=== PATIENT | female | born 1955 | race Native Hawaiian/Other Pacific Islander ===

== ENCOUNTER 2017-06-19 20:52 | Emergency (ER) | payer SELFPAY ==
[2017-06-19 21:43] VITALS: RESP 18
--- NOTE | 2017-06-19 21:50 | ED ---
General Adult HPI - General Chief complaint: Syncope Stated complaint: Syncope Time Seen by Provider: 06/19/17 21:15 Source: patient, family, RN notes reviewed Mode of arrival: ambulatory Limitations: no limitations - History of Present Illness Initial comments: Patient is a pleasant 61-year-old female presenting to the emergency department after reported syncopal episode. Patient states she was in the hospital with her daughter who is sick. Patient was very worried and passed out. Patient states this has happened to her previously. Patient is currently symptom-free. Patient denies any injury. No chest pain or dyspnea. No abdominal or back pain. No weakness or confusion. - Related Data Home Medications Medication Instructions Recorded Confirmed Levothyroxine Sodium [Synthroid] 75 mcg PO DAILY 06/19/17 06/19/17 Multivitamin/Iron/Folic Acid 1 tab PO DAILY 06/19/17 06/19/17 [Centrum Complete Multivit Tab] traMADol HCL [Ultram] 50 mg PO TID PRN 06/19/17 06/19/17 Allergies Allergy/AdvReac Type Severity Reaction Status Date / Time No Known Allergies Allergy Verified 06/19/17 21:42 Review of Systems ROS Statement: Those systems with pertinent positive or pertinent negative responses have been documented in the HPI. ROS Other: All systems not noted in ROS Statement are negative. Constitutional: Denies: fever Eyes: Denies: eye pain ENT: Denies: ear pain Respiratory: Denies: cough Cardiovascular: Denies: chest pain Endocrine: Denies: fatigue Gastrointestinal: Denies: abdominal pain Genitourinary: Denies: dysuria Musculoskeletal: Denies: back pain Skin: Denies: rash Neurological: Denies: weakness Past Medical History Past Medical History: Rheumatoid Arthritis (RA), Thyroid Disorder History of Any Multi-Drug Resistant Organisms: None Reported Past Surgical History: No Surgical Hx Reported Past Psychological History: No Psychological Hx Reported Smoking Status: Never smoker Past Alcohol Use History: None Reported Past Drug Use History: None Reported General Exam Limitations: no limitations General appearance: alert, in no apparent distress Head exam: Present: atraumatic, normocephalic Eye exam: Present: normal appearance, PERRL, EOMI. Absent: nystagmus ENT exam: Present: normal oropharynx Neck exam: Present: normal inspection. Absent: tenderness Respiratory exam: Present: normal lung sounds bilaterally Cardiovascular Exam: Present: regular rate, normal rhythm Expanded Peripheral pulses: 2+: Radial (R), Radial (L), Posterior Tibialis (R), Posterior Tibialis (L) GI/Abdominal exam: Present: soft. Absent: tenderness Extremities exam: Present: normal inspection Neurological exam: Present: alert, oriented X3, CN II-XII intact. Absent: motor sensory deficit Expanded Patient oriented to: Present: person, place, time Speech: Present: fluid speech Cranial nerves: EOM's Intact: Normal, Facial Sensation: Normal Sensory exam: Upper Extremity Light Touch: Normal, Lower Extremity Light Touch: Normal Motor strength exam: RUE: 5, LUE: 5, RLE: 5, LLE: 5 Eye Response: (4) open spontaneously Motor Response: (6) obeys commands Verbal Response: (5) oriented Psychiatric exam: Present: normal affect, normal mood Skin exam: Present: normal color Course Vital Signs 06/19/17 21:00 Temperature 97.0 F L Pulse Rate 66 Respiratory 18 Rate Blood Pressure 121/68 O2 Sat by Pulse 97 Oximetry EKG Findings - EKG Comments: EKG Findings:: Normal sinus rhythm 68. NE 156. QRS 100. QT 408. QTC 433. Normal axis. Normal QRS. No acute ST change. Medical Decision Making - Medical Decision Making Patient presents with vasovagal episode. Patient is symptom-free and does not want any further workup. Disposition Clinical Impression: Vasovagal syncope Disposition: HOME SELF-CARE Condition: Stable Instructions: Syncope (ED) Additional Instructions: Please follow-up with primary care physician in the next day or 2 for recheck. Return for passing out, confusion or headache, chest pain or difficulty breathing or weakness or other concerns. Referrals: Lamin Mcdonough DO [Primary Care Provider] - 1-2 days Time of Disposition: 22:02
[2017-06-19 22:47] VITALS: BP 127/71; PULSE 69; TEMP 98.2
== END 2017-06-19 22:15 | disposition home or self-care (01) ==
LOC: EC 20:52
DX: R55 Syncope and collapse (principal); E07.9 Disorder of thyroid, unspecified; Z79.899 Other long term (current) drug therapy
CPT/HCPCS: 93005; 99284

== ENCOUNTER 2020-07-28 03:16 | Inpatient (IN) | payer MEDICARE ==
[2020-07-28] MEDS ORDERED: SODIUM CHLORIDE 0.9% 1,000 ML IV STA (03:22)
[2020-07-28] MEDS ORDERED: IPRATROPIUM 0.5 MG/2.5 ML NEBU INHALATION STA (03:22)
[2020-07-28] MEDS ORDERED: ALBUTEROL NEBULIZED 2.5 MG/3 ML INHALATION STA (03:22)
--- NOTE | 2020-07-28 03:23 | ED ---
SOB HPI - General Stated Complaint: TARAH Time Seen by Provider: 07/28/20 03:19 Source: RN notes reviewed, old records reviewed Mode of arrival: EMS Limitations: language barrier - History of Present Illness Initial Comments: This is a 64-year-old female DF for evaluation of shortness of breath patient has had bodyaches chills with multiple family members as well as well-being si ck. Patient has been tested for coronavirus was negative is significantly short of breath EMS states patient was oxygen or with oxygen in the low 80s. Patient has no pain no chest pain MD Complaint: shortness of breath, cough -: days(s) Radiation: other Severity: severe Severity scale (1-10): 10 Quality: dull, throbbing Consistency: constant Improves With: nothing Worsens With: nothing Context: recent URI, recent illness Associated Symptoms: fever, cough Treatments Prior to Arrival: none - Related Data Home Medications Medication Instructions Recorded Confirmed Levothyroxine Sodium [Synthroid] 75 mcg PO DAILY 06/19/17 06/19/17 Multivitamin/Iron/Folic Acid 1 tab PO DAILY 06/19/17 06/19/17 [Centrum Complete Multivit Tab] traMADol HCL [Ultram] 50 mg PO TID PRN 06/19/17 06/19/17 Allergies Allergy/AdvReac Type Severity Reaction Status Date / Time No Known Allergies Allergy Verified 06/19/17 21:42 Review of Systems ROS Statement: Those systems with pertinent positive or pertinent negative responses have been documented in the HPI. ROS Other: All systems not noted in ROS Statement are negative. Past Medical History Past Medical History: Rheumatoid Arthritis (RA), Thyroid Disorder History of Any Multi-Drug Resistant Organisms: None Reported Past Surgical History: No Surgical Hx Reported Past Psychological History: No Psychological Hx Reported Past Alcohol Use History: None Reported Past Drug Use History: None Reported General Exam General appearance: alert, anxious, lethargic, in distress Head exam: Present: atraumatic, normocephalic, normal inspection Eye exam: Present: normal appearance, PERRL, EOMI. Absent: scleral icterus, conjunctival injection, periorbital swelling ENT exam: Present: normal exam, mucous membranes moist Neck exam: Present: normal inspection. Absent: tenderness, meningismus, lymphadenopathy Respiratory exam: Present: normal lung sounds bilaterally. Absent: respiratory distress, wheezes, rales, rhonchi, stridor Cardiovascular Exam: Present: regular rate, normal rhythm, normal heart sounds. Absent: systolic murmur, diastolic murmur, rubs, gallop, clicks GI/Abdominal exam: Present: soft, normal bowel sounds. Absent: distended, tenderness, guarding, rebound, rigid Extremities exam: Present: normal inspection, full ROM, normal capillary refill. Absent: tenderness, pedal edema, joint swelling, calf tenderness Back exam: Present: normal inspection Neurological exam: Present: alert, oriented X3, CN II-XII intact Psychiatric exam: Present: normal affect, normal mood Skin exam: Present: warm, dry, intact, normal color. Absent: rash Course Vital Signs 07/28/20 07/28/20 03:19 04:19 Temperature 99.3 F 98.9 F Pulse Rate 98 89 Respiratory 22 18 Rate Blood Pressure 142/76 133/71 O2 Sat by Pulse 81 L 93 L Oximetry - Reevaluation(s) Reevaluation #1: 07/28/20 04:30 Medical record is reviewed Reevaluation #2: 07/28/20 04:30 Patient oxygen improved significant with supplemental therapy Reevaluation #3: 07/28/20 04:30 Patient informed of results, questions have been answered - Consultations Consultation #1: Spoke with Dr. Lemons who agrees to admit this patient Medical Decision Making - Medical Decision Making 64 female presents today for evaluation of shortness of breath cough and congestion. Patient does have likely pneumonia from coronavirus little coronavirus test is negative. X-ray is indicative. As well as symptoms. Patient significantly hypoxic on arrival to ER improving with supplemental oxygen will admit for continued supportive care - Lab Data Result diagrams: 07/28/20 03:29 07/28/20 03:29 Lab Results 07/28/20 07/28/20 07/28/20 Range/Units 03:29 03:29 03:29 WBC 18.8 H (3.8-10.6) k/uL RBC 4.32 (3.80-5.40) m/uL Hgb 13.0 (11.4-16.0) gm/dL Hct 38.5 (34.0-46.0) % MCV 89.2 (80.0-100.0) fL MCH 30.1 (25.0-35.0) pg MCHC 33.7 (31.0-37.0) g/dL RDW 13.0 (11.5-15.5) % Plt Count 252 (150-450) k/uL MPV 7.9 Neutrophils % 88 % Lymphocytes % 7 % Monocytes % 2 % Eosinophils % 0 % Basophils % 1 % Neutrophils # 16.6 H (1.3-7.7) k/uL Lymphocytes # 1.4 (1.0-4.8) k/uL Monocytes # 0.4 (0-1.0) k/uL Eosinophils # 0.0 (0-0.7) k/uL Basophils # 0.1 (0-0.2) k/uL Sodium 139 (137-145) mmol/L Potassium 4.5 (3.5-5.1) mmol/L Chloride 104 (98-107) mmol/L Carbon Dioxide 28 (22-30) mmol/L Anion Gap 7 mmol/L BUN 19 H (7-17) mg/dL Creatinine 0.55 (0.52-1.04) mg/dL Est GFR (CKD-EPI)AfAm >90 (>60 ml/min/1.73 sqM) Est GFR (CKD-EPI)NonAf >90 (>60 ml/min/1.73 sqM) Glucose 171 H (74-99) mg/dL Plasma Lactic Acid Flip 1.2 (0.7-2.0) mmol/L Calcium 9.0 (8.4-10.2) mg/dL Magnesium 1.9 (1.6-2.3) mg/dL Total Bilirubin 0.7 (0.2-1.3) mg/dL AST 94 H (14-36) U/L ALT 126 H (4-34) U/L Alkaline Phosphatase 125 (38-126) U/L Lactate Dehydrogenase 1234 H (313-618) U/L Creatine Kinase 36 (30-135) U/L Troponin I (0.000-0.034) ng/mL NT-Pro-B Natriuret Pep pg/mL Total Protein 7.7 (6.3-8.2) g/dL Albumin 3.8 (3.5-5.0) g/dL Coronavirus (PCR) (Not Detectd) 07/28/20 07/28/20 07/28/20 Range/Units 03:29 03:29 03:33 WBC (3.8-10.6) k/uL RBC (3.80-5.40) m/uL Hgb (11.4-16.0) gm/dL Hct (34.0-46.0) % MCV (80.0-100.0) fL MCH (25.0-35.0) pg MCHC (31.0-37.0) g/dL RDW (11.5-15.5) % Plt Count (150-450) k/uL MPV Neutrophils % % Lymphocytes % % Monocytes % % Eosinophils % % Basophils % % Neutrophils # (1.3-7.7) k/uL Lymphocytes # (1.0-4.8) k/uL Monocytes # (0-1.0) k/uL Eosinophils # (0-0.7) k/uL Basophils # (0-0.2) k/uL Sodium (137-145) mmol/L Potassium (3.5-5.1) mmol/L Chloride (98-107) mmol/L Carbon Dioxide (22-30) mmol/L Anion Gap mmol/L BUN (7-17) mg/dL Creatinine (0.52-1.04) mg/dL Est GFR (CKD-EPI)AfAm (>60 ml/min/1.73 sqM) Est GFR (CKD-EPI)NonAf (>60 ml/min/1.73 sqM) Glucose (74-99) mg/dL Plasma Lactic Acid Flip (0.7-2.0) mmol/L Calcium (8.4-10.2) mg/dL Magnesium (1.6-2.3) mg/dL Total Bilirubin (0.2-1.3) mg/dL AST (14-36) U/L ALT (4-34) U/L Alkaline Phosphatase (38-126) U/L Lactate Dehydrogenase (313-618) U/L Creatine Kinase (30-135) U/L Troponin I <0.012 (0.000-0.034) ng/mL NT-Pro-B Natriuret Pep 128 pg/mL Total Protein (6.3-8.2) g/dL Albumin (3.5-5.0) g/dL Coronavirus (PCR) Not Detected (Not Detectd) - EKG Data -: EKG Interpreted by Me (EKG is sinus rhythm 82 ND 146 QRS 100 QTc 447) - Radiology Data Radiology results: report reviewed (Chest x-ray does appear to show coronavirus pneumonia), image reviewed Critical Care Time Critical Care Time: Yes Total Critical Care Time: 31 Disposition Clinical Impression: Hypoxia, Pneumonia due to COVID-19 virus Disposition: ADMITTED IP TO THIS [facility] Condition: Fair Is patient prescribed a controlled substance at d/c from ED?: No Referrals: Lamin Mcdonough DO [Primary Care Provider] - 1-2 days
[2020-07-28] MEDS ORDERED: ALBUTEROL HFA INHALER INHALATION STA (03:27)
[2020-07-28 03:59] LABS: Basophils # (A) 0.1 k/uL (0-0.2); Basophils % (A) 1 %; Eosinophils % (A) 0 %; HCT 38.5 % (34.0-46.0); Lymphocytes # (A) 1.4 k/uL (1.0-4.8); Lymphocytes % (A) 7 %; MCH 30.1 pg (25.0-35.0); MCHC 33.7 g/dL (31.0-37.0); MCV 89.2 fL (80.0-100.0); Mean Platelet Volume 7.9; Monocytes # (A) 0.4 k/uL (0-1.0); Monocytes % (A) 2 %; Neutrophils # (A) 16.6 k/uL (1.3-7.7); Neutrophils % (A) 88 %; Platelet Count 252 k/uL (150-450); RBC 4.32 m/uL (3.80-5.40); WBC 18.8 k/uL (3.8-10.6)
[2020-07-28 04:13] LABS: ALT 126 U/L (4-34); AST 94 U/L (14-36); African American GFR (CKD) >90 (>60 ml/min/1.73 sqM); Albumin 3.8 g/dL (3.5-5.0); Alkaline Phosphatase 125 U/L (38-126); Anion Gap 7 mmol/L; Blood Urea Nitrogen 19 mg/dL (7-17); Carbon Dioxide 28 mmol/L (22-30); Chloride 104 mmol/L (98-107); Creatine Kinase 36 U/L (30-135); Glucose 171 mg/dL (74-99); LDH 1234 U/L (313-618); Magnesium 1.9 mg/dL (1.6-2.3); Non-African American GFR(CKD) >90 (>60 ml/min/1.73 sqM); Potassium 4.5 mmol/L (3.5-5.1); Sodium 139 mmol/L (137-145); Total Bilirubin 0.7 mg/dL (0.2-1.3); Total Protein 7.7 g/dL (6.3-8.2)
--- NOTE | 2020-07-28 04:22 | XR ---
EXAM: XR Chest, 1 View CLINICAL HISTORY: ITS.REASON XR Reason: Suspected COVID-19 pneumonia TECHNIQUE: Frontal view of the chest. COMPARISON: No relevant prior studies available. FINDINGS: Lungs: Moderate to severe patchy rounded interstitial infiltrates throughout the mid to lower lungs bilaterally consistent with Covid 19 pneumonia. Lung volumes are low. Pleural space: Unremarkable. No pneumothorax. Heart: Unremarkable. No cardiomegaly. Mediastinum: Unremarkable. Bones/joints: Unremarkable. IMPRESSION: Moderate to severe patchy rounded interstitial infiltrates throughout the mid to lower lungs bilaterally consistent with Covid 19 pneumonia.
[2020-07-28] MEDS ORDERED: ACETAMINOPHEN TAB 500 MG TAB PO STA (04:23)
[2020-07-28] MEDS ORDERED: KETOROLAC 15 MG/ML 1 ML VIAL IVP STA (04:23)
[2020-07-28] MEDS ORDERED: PNEUMONIA PROTOCOL UTILIZED 1 EACH MISC PO PRN (04:26)
[2020-07-28 04:36] LABS: D-Dimer 0.63 mg/L FEU (<0.60); INR 0.9 (<1.2); Prothrombin Time 9.8 sec (9.0-12.0)
[2020-07-28] MEDS: SODIUM CHLORIDE 0.9% 1,000 ML IV SCH ×2 (04:37→12:30)
[2020-07-28 04:46] LABS: C Reactive Protein 186.8 mg/L (<10.0)
[2020-07-28 04:51] LABS: Partial Thromboplastin Time 20.1 sec (22.0-30.0)
[2020-07-28] MEDS: ALBUTEROL HFA INHALER INHALATION SCH ×4 (08:22→20:04)
[2020-07-28] MEDS: ZINC SULFATE 220 MG CAP PO SCH (09:15)
[2020-07-28] MEDS: CHOLECALCIFEROL 1,000 UNIT TAB PO SCH (09:15)
[2020-07-28] MEDS: ASCORBIC ACID 500 MG TAB PO SCH (09:15)
[2020-07-28] MEDS: ENOXAPARIN 40 MG/0.4 ML SYRINGE SQ SCH (09:16)
[2020-07-28] MEDS: dexAMETHasone 2 MG TAB PO SCH (09:16)
[2020-07-28] MEDS ORDERED: REMDESIVIR 200 MG in SODIUM CHLORIDE 0.9% 250 ML IVPB ONE (12:00)
--- NOTE | 2020-07-28 12:37 | P.CNPUL ---
History of Present Illness Consult date: 07/28/20 Requesting physician: Suresh Lemons Reason for consult: dyspnea, cough, hypoxemia, abnormal CXR/CT Chief complaint: Dyspnea, cough, body aches, fatigue History of present illness: This is a 64-year-old female patient of Dr. Lamin Mcdonough, who presented to the emergency department on July 2020 with one week history of fatigue, body aches, chills, worsening shortness of breath with multiple family members not feeling well with similar symptoms. Apparently patient tested for coronavirus and was found to be negative, in view of significant shortness of breath and hypoxemia with a pulse ox in the low 80s, EMS was called. Of note patient's mother recently passed in this hospital of COVID 19 related complications. Patient's daughter is also hospitalized with COVID 19 symptoms. Chest x-ray showed [id number] patchy rounded interstitial infiltrates throughout mid to lower lungs consistent with COVID 19 pneumonia. White blood cell count is 18.8, hemoglobin is 13, neutrophil count is 16.6, lymphocyte count was 1.4, d-dimer 0.63, electrolytes are within normal limits, BUN is 19 creatinine 0.5, lactic acid is 1.2, repeat COVID 19 rapid test in the emergency department was again negative. Patient's creatinine 8 L of oxygen pulse ox is 90-95%. Review of Systems All systems: negative Constitutional: Reports malaise, Reports weakness, Denies chills, Denies fever Eyes: denies blurred vision, denies pain Ears, nose, mouth and throat: Denies headache, Denies sore throat Cardiovascular: Reports decreased exercise tolerance, Reports dyspnea on exertion, Denies chest pain, Denies shortness of breath Respiratory: Reports dyspnea, Denies cough Gastrointestinal: Denies abdominal pain, Denies diarrhea, Denies nausea, Denies vomiting Genitourinary: Denies dysuria, Denies hematuria Musculoskeletal: Denies myalgias Integumentary: Denies pruritus, Denies rash Neurological: Denies numbness, Denies weakness Psychiatric: Denies anxiety, Denies depression Endocrine: Denies fatigue, Denies weight change Past Medical History Past Medical History: Rheumatoid Arthritis (RA), Thyroid Disorder History of Any Multi-Drug Resistant Organisms: None Reported Past Surgical History: No Surgical Hx Reported Past Anesthesia/Blood Transfusion Reactions: No Reported Reaction Past Psychological History: No Psychological Hx Reported Smoking Status: Never smoker Past Alcohol Use History: None Reported Past Drug Use History: None Reported Medications and Allergies Home Medications Medication Instructions Recorded Confirmed Type Levothyroxine Sodium [Synthroid] 75 mcg PO DAILY 06/19/17 07/28/20 History Albuterol Sulfate [Proair Hfa] 1 puff INHALATION RT-Q6H PRN 07/28/20 07/28/20 History Azithromycin [Zithromax Z-pack (6 See Taper PO DIRECTED 07/28/20 07/28/20 Hi story tabs)] Naproxen 500 mg PO BID 07/28/20 07/28/20 History methylPREDNISolone [Medrol Dose See Taper PO DIRECTED 07/28/20 07/28/20 History Pack] Allergies Allergy/AdvReac Type Severity Reaction Status Date / Time No Known Allergies Allergy Verified 07/28/20 08:52 Physical Exam Vitals: Vital Signs Temp Pulse Pulse Resp BP BP Pulse Ox 07/28/20 10:19 98.8 F 86 16 129/74 90 L 07/28/20 05:56 98.4 F 79 16 122/78 95 07/28/20 05:15 98.5 F 91 18 135/71 94 L 07/28/20 04:19 98.9 F 89 18 133/71 93 L 07/28/20 03:19 99.3 F 98 22 142/76 81 L Intake and Output 07/27/20 07/28/20 07/28/20 22:59 06:59 14:59 Intake Total 590 Balance 590 Intake: Oral 590 Other: Weight 69.4 kg GENERAL EXAM: Alert, very pleasant, 64-year-old female, currently on 8 L of oxygen pulse ox of 90% comfortable in no apparent distress. HEAD: Normocephalic/atraumatic. EYES: Normal reaction of pupils, equal size. Conjunctiva pink, sclera white. NOSE: Clear with pink turbinates. THROAT: No erythema or exudates. NECK: No masses, no JVD, no thyroid enlargement, no adenopathy. CHEST: No chest wall deformity. Symmetrical expansion. LUNGS: Equal air entry with bilateral crackles, but no wheeze, rhonchi or dullness. CVS: Regular rate and rhythm, normal S1 and S2, no gallops, no murmurs, no rubs ABDOMEN: Soft, nontender. No hepatosplenomegaly, normal bowel sounds, no guarding or rigidity. EXTREMITIES: No clubbing, no edema, no cyanosis, 2+ pulses and upper and lower extremities. MUSCULOSKELETAL: Muscle strength and tone normal. SPINE: No scoliosis or deformity SKIN: No rashes CENTRAL NERVOUS SYSTEM: Alert and oriented -3. No focal deficits, tone is normal in all 4 extremities. PSYCHIATRIC: Alert and oriented -3. Appropriate affect. Intact judgment and insight. Results - Laboratory Findings CBC and BMP: 07/28/20 03:29 07/28/20 03:29 PT/INR, D-dimer PT 9.8 sec (9.0-12.0) 07/28/20 03: INR 0.9 (<1.2) 07/28/20 03: D-Dimer 0.63 mg/L FEU (<0.60) H 07/28/20 03:29 Abnormal lab findings: Abnormal Labs 07/28/20 07/28/20 07/28/20 03:29 03:29 03:29 WBC 18.8 H Neutrophils # 16.6 H APTT 20.1 L D-Dimer 0.63 H BUN 19 H Glucose 171 H AST 94 H ALT 126 H Lactate Dehydrogenase 1234 H C-Reactive Protein 186.8 H - Diagnostic Findings Chest x-ray: report reviewed, image reviewed Assessment and Plan Plan: Assessment: #1. Acute hypoxic respiratory failure, consider possibility of COVID 19 related pneumonia, although patient tested negative twice on outpatient and in the emergency department using that rapid COVID 19 test. In view of her recent history of exposure to her COVID 19 positive mother, who had from complications related to COVID 19, we will send COVID 19 antibody test, and we will initiate treatment with Remdesivir, IV steroids, convalescent plasma, and prophylactic anticoagulation. Rule out possibility of influenza infection #2. Possibility of bacterial pneumonia is also being considered, we will send Legionella urine antigen, mycoplasma pneumonia antibody IgM and IgA, pro- calcitonin level, will cover with azithromycin and Rocephin #3. History of rheumatoid arthritis, at this time it's unknown if patient has any chronic parenchymal changes from underlying history of rheumatoid arthritis #4. Hypothyroidism #5. Increased inflammatory markers including LDH, and CRP #6. Increased AST and ALT possibility of viral or bacterial pneumonia Plan: We'll initiate Remdesivir treatment, we will give the patient 1 unit of convalescent plasma for COVID 19 pneumonia, we will add azithromycin and Rocephin for possibility of bacterial infection, send a Legionella urine antigen, mycoplasma pneumonia antibodies, we will send a COVID 19 antibody test, pro-calcitonin, continue with prophylactic dose of Lovenox, continue with the vitamin C, vitamin D and zinc. Follow-up chest x-ray tomorrow, continue closely following the patient. I performed a history & physical examination of the patient and discussed their management with my nurse practitioner, Lilly Green. I reviewed the nurse practitioner's note and agree with the documented findings and plan of care. Lung sounds are positive for diminished breath soudns, and yusuf crackles. The findings and the impression was discussed with the patient. I attest to the documentation by the nurse practitioner. Time with Patient: Greater than 30
--- NOTE | 2020-07-28 14:22 | P.HPIM ---
History of Present Illness H&P Date: 07/28/20 Chief Complaint: Fever, weakness, cough and shortness of breath HISTORY OF PRESENT ILLNESS This is a 64-year-old female patient of Dr. Mcdonough with a past medical history of hypothyroidism, rheumatoid arthritis. Patient was recently exposed to her mother with Covid 19. Mother last day had had stated her home. She now complains of cough and shortness of breath. She denies having any fever. Patient presented to [facility] emergency center for evaluation. She is found to be afebrile, heart rate 90, blood pressure 142/76, pulse ox 81% on room air. WBC 18.8, d-dimer 0.63, blood sugar 171. AST 94, ALT 126. LDH 1234. CK 36. Troponin negative. C-reactive protein 186.8. ProBNP 128. COVID-19 nondetected. Chest x-ray reveals moderate to severe. She rounded interstitial infiltrates throughout the mid and lower lungs bilaterally consistent with Covid 19 pneumonia inhalers, Lovenox, consult requested with pulmonary medicine admitted to the [facility] floor. REVIEW OF SYSTEMS Constitutional: No fever, no chills, no night sweats. No weight change. No weakness, fatigue or lethargy. No daytime sleepiness. EENT: No headache. No blurred vision or double vision, no loss of vision. No loss of Hearing, no ringing in the ears, no dizziness. No nasal drainage or c ongestion. No epistaxis. No sore throat. Lungs: Reports shortness of breath, Reports cough, no sputum production. No wheezing. Cardiovascular: No chest pain, no lower extremity edema. No palpitations. No paroxysmal nocturnal dyspnea. No orthopnea. No lightheadedness or dizziness. No syncopal episodes. Abdominal: No abdominal pain. No nausea, vomiting. No diarrhea. No constipation. No bloody or tarry stools. No loss of appetite. Genitourinary: No dysuria, increased frequency, urgency. No urinary retention. Musculoskeletal: No myalgias. No muscle weakness, no gait dysfunction, no frequent falls. No back pain. No neck pain. Integumentary: No wounds, no lesions. No rash or pruritus. No unusual bruising. No change in hair or nails. Neurologic: No aphasia. No facial droop. No change in mentation. No head injury. No headache. No paralysis. No paresthesia. Psychiatric: No depression. No anxiety. No mood swings. Endocrine: No abnormal blood sugars. No weight change. No excessive sweating or thirst. No cold intolerance. SOCIAL HISTORY Patient is a lifelong nonsmoker, no alcohol use, no marijuana or street drug use. FAMILY HISTORY Mother at age 84 from Covid 19. Father at age 86 from alcohol complications. Patient has 5 brothers and 4 sisters with no major medical problems. Patient has 4 children with no major medical problems.. PHYSICAL EXAMINATION Gen: This is a 64-year-old female. She appears to be in no acute distress at the time of evaluation. HEENT: Head is atraumatic, normocephalic. Pupils equal, round. Sclerae is anicteric. NECK: Supple. No JVD. No lymphadenopathy. No thyromegaly. LUNGS: Crackles bilateral bases. No wheezing. No intercostal retractions. HEART: Regular rate and rhythm. No murmur. ABDOMEN: Soft. Bowel sounds are present. No masses. No tenderness. EXTREMITIES: No pedal edema. No calf tenderness. NEUROLOGICAL: Patient is awake, alert and oriented x3. Cranial nerves 2 through 12 are grossly intact. ASSESSMENT AND PLAN 1. Acute hypoxic respiratory failure most likely secondary to Covid 19 pneumonia. Pulmonary medicine consult appreciated. Covid 19 antibody test was ordered. Patient started on Remdesivir and convalescent plasma. Continue albuterol inhaler, vitamin supplements, azithromycin, ceftriaxone, dexamethasone 6 mg oral daily, Lovenox 40 mg daily. Influenza testing, Legionella testing. Continue oxygen therapy. 2. Acute bilateral pneumonia, Covid 19 pneumonia, possible bacterial pneumonia. 3. Elevated inflammatory markers consistent with Covid 19 pneumonia. 4. Rheumatoid arthritis. 5. Hypothyroidism. Continue levothyroxine 75 g daily. 6. GI prophylaxis. Protonix. 7. DVT prophylaxis. Lovenox. Patient will be admitted to the hospital for a minimum of 2 night stay. DISCHARGE PLAN Most likely return home. Impression and plan of care have been directed as dictated by the signing physician. Leanne Luna nurse practitioner acting as scribe for signing physician. Past Medical History Past Medical History: Rheumatoid Arthritis (RA), Thyroid Disorder History of Any Multi-Drug Resistant Organisms: None Reported Past Surgical History: No Surgical Hx Reported Past Anesthesia/Blood Transfusion Reactions: No Reported Reaction Past Psychological History: No Psychological Hx Reported Smoking Status: Never smoker Past Alcohol Use History: None Reported Past Drug Use History: None Reported Medications and Allergies Home Medications Medication Instructions Recorded Confirmed Type Levothyroxine Sodium [Synthroid] 75 mcg PO DAILY 06/19/17 07/28/20 History Albuterol Sulfate [Proair Hfa] 1 puff INHALATION RT-Q6H PRN 07/28/20 07/28/20 History Azithromycin [Zithromax Z-pack (6 See Taper PO DIRECTED 07/28/20 07/28/20 History tabs)] Naproxen 500 mg PO BID 07/28/20 07/28/20 History methylPREDNISolone [Medrol Dose See Taper PO DIRECTED 07/28/20 07/28/20 History Pack] Allergies Allergy/AdvReac Type Severity Reaction Status Date / Time No Known Allergies Allergy Verified 07/28/20 08:52 Physical Exam Vitals: Vital Signs Temp Pulse Pulse Resp BP BP Pulse Ox 07/28/20 05:56 98.4 F 79 16 122/78 95 07/28/20 05:15 98.5 F 91 18 135/71 94 L 07/28/20 04:19 98.9 F 89 18 133/71 93 L 07/28/20 03:19 99.3 F 98 22 142/76 81 L Intake and Output 07/27/20 07/28/20 07/28/20 22:59 06:59 14:59 Intake Total 590 Balance 590 Intake: Oral 590 Other: Weight 69.4 kg Results CBC & Chem 7: 07/28/20 03:29 07/28/20 03:29 Labs: Abnormal Lab Results - Last 24 Hours (Table) 07/28/20 07/28/20 07/28/20 Range/Units 03:29 03:29 03:29 WBC 18.8 H (3.8-10.6) k/uL Neutrophils # 16.6 H (1.3-7.7) k/uL APTT 20.1 L (22.0-30.0) sec D-Dimer 0.63 H (<0.60) mg/L FEU BUN 19 H (7-17) mg/dL Glucose 171 H (74-99) mg/dL AST 94 H (14-36) U/L ALT 126 H (4-34) U/L Lactate Dehydrogenase 1234 H (313-618) U/L C-Reactive Protein 186.8 H (<10.0) mg/L Thrombosis Risk Factor Assmnt - Choose All That Apply Any of the Below Risk Factors Present?: Yes Each Factor Represents 1 point: Obesity (BMI >25), Serious lung disease incl. pneumonia (< 1month) Other Risk Factors: Yes Each Risk Factor Represents 2 Points: Age 61-74 years Thrombosis Risk Factor Assessment Total Risk Factor Score: 4 Thrombosis Risk Factor Assessment Level: Moderate Risk
[2020-07-28] MEDS: AZITHROMYCIN 500 MG in SODIUM CHLORIDE 0.9% 250 ML IVPB SCH (16:20)
[2020-07-28] MEDS: guaiFENesin-Coden 100-10MG/5ML 10 ML CUP PO PRN ×2 (16:51→22:39)
[2020-07-29] MEDS: SODIUM CHLORIDE 0.9% 1,000 ML IV SCH ×3 (00:24→21:09)
[2020-07-29] MEDS: LEVOTHYROXINE 75 MCG TAB PO SCH (05:35)
[2020-07-29] MEDS: ALBUTEROL HFA INHALER INHALATION SCH ×4 (07:52→19:13)
[2020-07-29] MEDS: ASCORBIC ACID 500 MG TAB PO SCH (09:40)
[2020-07-29] MEDS: CHOLECALCIFEROL 1,000 UNIT TAB PO SCH (09:40)
[2020-07-29] MEDS: ZINC SULFATE 220 MG CAP PO SCH (09:40)
[2020-07-29] MEDS: dexAMETHasone 2 MG TAB PO SCH (09:40)
[2020-07-29] MEDS: PANTOPRAZOLE 40 MG TABLET PO SCH (09:41)
[2020-07-29] MEDS: guaiFENesin-Coden 100-10MG/5ML 10 ML CUP PO PRN ×2 (09:41→21:17)
--- NOTE | 2020-07-29 10:41 | CT ---
EXAMINATION TYPE: CT angio chest DATE OF EXAM: 07/29/2020 10:22 AM COMPARISON: None HISTORY: Shortness of breath CT DLP: 243.8 mGycm Automated exposure control for dose reduction was used. CONTRAST: CTA scan of the thorax is performed with IV Contrast, patient injected with 100 mL of Isovue 370, pul monary embolism protocol. . FINDINGS: LUNGS: Biapical pleural thickening. There are diffuse bilateral groundglass changes correlate for wid espread pneumonia.. No sizable pleural effusion. No pneumothorax. MEDIASTINUM: There is satisfactory enhancement of the main and central pulmonary artery. Distal branc hes are limited.. There are no greater than 1 cm hilar or mediastinal lymph nodes. Aorta suboptimall y opacified normal caliber. Mild cardiomegaly. OTHER: Hypertrophic and degenerative changes spine. Calcification along the right hemidiaphragm. IMPRESSION: 1. Diffuse bilateral airspace disease correlate for diffuse pneumonia or ARDS. 2. No central pulmonary embolism distal branches are limited.
[2020-07-29] MEDS: ENOXAPARIN 40 MG/0.4 ML SYRINGE SQ SCH ×2 (10:43→21:10)
[2020-07-29] MEDS: AZITHROMYCIN 500 MG in SODIUM CHLORIDE 0.9% 250 ML IVPB SCH (10:48)
--- NOTE | 2020-07-29 11:34 | P.PN ---
Subjective Progress Note Date: 07/29/20 HISTORY OF PRESENT ILLNESS This is a 64-year-old female patient of Dr. Mcdonough with a past medical history of hypothyroidism, rheumatoid arthritis. Patient was recently exposed to her mother with Covid 19. Mother last day had had stated her home. She now complains of cough and shortness of breath. She denies having any fever. Patient presented to [facility] emergency center for evaluation. She is found to be afebrile, heart rate 90, blood pressure 142/76, pulse ox 81% on room air. WBC 18.8, d-dimer 0.63, blood sugar 171. AST 94, ALT 126. LDH 1234. CK 36. Troponin negative. C-reactive protein 186.8. ProBNP 128. COVID-19 nondetected. Chest x-ray reveals moderate to severe. She rounded interstitial infiltrates throughout the mid and lower lungs bilaterally consistent with Covid 19 pneumonia inhalers, Lovenox, consult requested with pulmonary medicine admitted to the [facility] floor. 07/29: The patient is now requiring nonrebreather and high flow nasal cannula 15 L with pulse ox of 95%. She has been afebrile, heart rate 68, blood pressure 121/72. She has been started on Remdesivir, day 2/5. Blood cultures are showing no growth at 24 hours. She continues to have a cough and cough with deep breathing. She denies chest pain or abdominal pain. Lovenox increase to twice daily. CAT scan angiogram of the chest ordered to rule out pulmonary embolism. This revealed diffuse bilateral airspace disease correlate for diffuse pneumonia or ARDS. No central pulmonary embolism distal branches are limited. REVIEW OF SYSTEMS Constitutional: No fever, no chills, no night sweats. No weight change. Reports weakness, reports fatigue. No daytime sleepiness. EENT: No headache. No blurred vision or double vision, no loss of vision. No loss of Hearing, no ringing in the ears, no dizziness. No nasal drainage or congestion. No epistaxis. No sore throat. Lungs: Reports shortness of breath, Reports cough, no sputum production. No wheezing. Cardiovascular: No chest pain, no lower extremity edema. No palpitations. No paroxysmal nocturnal dyspnea. No orthopnea. No lightheadedness or dizziness. No syncopal episodes. Abdominal: No abdominal pain. No nausea, vomiting. No diarrhea. No constipation. No bloody or tarry stools. No loss of appetite. Genitourinary: No dysuria, increased frequency, urgency. No urinary retention. Musculoskeletal: No myalgias. No muscle weakness, no gait dysfunction, no frequent falls. No back pain. No neck pain. Integumentary: No wounds, no lesions. No rash or pruritus. Neurologic: No aphasia. No facial droop. No change in mentation. No head injury. No headache. No paralysis. No paresthesia. Psychiatric: No depression. No anxiety. Endocrine: No abnormal blood sugars. PHYSICAL EXAMINATION Gen: This is a 64-year-old female. She appears to be in no acute distress at the time of evaluation. HEENT: Head is atraumatic, normocephalic. Pupils equal, round. Sclerae is anicteric. NECK: Supple. No JVD. No lymphadenopathy. No thyromegaly. LUNGS: Fine crackles bilaterally throughout. No wheezing. No intercostal retractions. HEART: Regular rate and rhythm. No murmur. ABDOMEN: Soft. Bowel sounds are present. No masses. No tenderness. EXTREMITIES: No pedal edema. No calf tenderness. NEUROLOGICAL: Patient is awake, alert and oriented x3. Cranial nerves 2 through 12 are grossly intact. ASSESSMENT AND PLAN 1. Acute hypoxic respiratory failure secondary to Covid 19 pneumonia. Pulmonary medicine consult appreciated. Covid 19 antibody test was ordered. Patient on Remdesivir day 2/5, status post 1 unit convalescent plasma. Continue albuterol inhaler, vitamin supplements, azithromycin, ceftriaxone, dexamethasone 6 mg oral daily, Lovenox 40 mg twice daily. Influenza testing, Legionella testing. Continue oxygen therapy. CTA as above. 2. Acute bilateral pneumonia, Covid 19 pneumonia, possible bacterial pneumonia. 3. Elevated inflammatory markers consistent with Covid 19 pneumonia. 4. Rheumatoid arthritis. 5. Hypothyroidism. Continue levothyroxine 75 g daily. 6. GI prophylaxis. Protonix. 7. DVT prophylaxis. Lovenox. DISCHARGE PLAN Most likely return home. Impression and plan of care have been directed as dictated by the signing physician. Leanne Luna nurse practitioner acting as scribe for signing physician. Objective - Vital Signs Vital signs: Vital Signs Temp 98.4 F 07/29/20 04:57 Pulse 68 07/29/20 04:57 Resp 18 07/29/20 04:57 BP 121/72 07/29/20 04:57 Pulse Ox 95 07/29/20 04:57 Intake & Output 07/28/20 07/29/20 07/29/20 18:59 06:59 18:59 Intake Total 550 1002 Balance 550 1002 Intake: Intake, IV Titration 550 500 Amount Azithromycin 500 mg In 250 Sodium Chloride 0.9% 250 ml @ 250 mls/hr IVPB DAILY [facility] Rx#:[id number] Remdesivir 200 mg In 250 Sodium Chloride 0.9% 250 ml @ 250 mls/hr IVPB ONCE ONE Rx#:[id number] Sodium Chloride 0.9% 1, 500 000 ml @ 100 mls/hr IV . Q10H [facility] Rx#:[id number] cefTRIAXone 1 gm In 50 Sodium Chloride 0.9% 50 ml @ 100 mls/hr IVPB Q24HR [facility] Rx#:[id number] Oral 290 Blood Product 0 212 Ffp Pher Conval Covid19 0 212 Acda 2 Unit [id number] Other: Voiding Method Bedside Commode # Voids 1 - Labs CBC & Chem 7: 07/28/20 03:29 07/28/20 03:29 Labs: Microbiology - Last 24 Hours (Table) 07/28/20 03:50 Blood Culture - Preliminary Blood No Growth after 24 hours
[2020-07-29] MEDS: REMDESIVIR 100 MG in SODIUM CHLORIDE 0.9% 250 ML IVPB SCH (13:16)
--- NOTE | 2020-07-29 13:51 | P.PN ---
Subjective Progress Note Date: 07/29/20 Principal diagnosis: Acute hypoxic respiratory failure suspect CoVID 19 related pneumonia This is a 64-year-old female patient of Dr. Lamin Mcdonough, who presented to the emergency department on July 2020 with one week history of fatigue, body aches, chills, worsening shortness of breath with multiple family members not feeling well with similar symptoms. Apparently patient tested for coronavirus and was found to be negative, in view of significant shortness of breath and hypoxemia with a pulse ox in the low 80s, EMS was called. Of note patient's mother recently passed in this hospital of COVID 19 related complications. Patient's daughter is also hospitalized with COVID 19 symptoms. Chest x-ray showed [id number] patchy rounded interstitial infiltrates throughout mid to lower lungs consistent with COVID 19 pneumonia. White blood cell count is 18.8, hemoglobin is 13, neutrophil count is 16.6, lymphocyte count was 1.4, d-dimer 0.63, electrolytes are within normal limits, BUN is 19 creatinine 0.5, lactic acid is 1.2, repeat COVID 19 rapid test in the emergency department was again negative. Patient's creatinine 8 L of oxygen pulse ox is 90-95%. The patient is seen today 07/29/2020 in follow-up on the regular medical floor. She is currently awake and alert and she is in mild respiratory distress. Her oxygen requirements have increased overnight. She is currently on 15 L high flow nasal cannula initially on a nonrebreather mask. She's currently afebrile. Computed tomography scan of the chest reveals diffuse bilateral airspace disease consistent with CoVID 19 pneumonitis. No evidence of pulmonary embolism. She did receive 1 unit of convalescent plasma. Blood and sputum cultures are pending. She is currently on ceftriaxone and azithromycin along with dexamethasone, Lovenox, vitamin supplements. This is day #2 of Remdesivir. Objective - Vital Signs Vital signs: Vital Signs Temp 98.3 F 07/29/20 10:39 Pulse 77 07/29/20 10:39 Resp 18 07/29/20 10:39 BP 136/76 07/29/20 10:39 Pulse Ox 92 L 07/29/20 12:25 Intake & Output 07/28/20 07/29/20 07/29/20 18:59 06:59 18:59 Intake Total 550 1002 Balance 550 1002 Intake: Intake, IV Titration 550 500 Amount Azithromycin 500 mg In 250 Sodium Chloride 0.9% 250 ml @ 250 mls/hr IVPB DAILY [facility] Rx#:[id number] Remdesivir 200 mg In 250 Sodium Chloride 0.9% 250 ml @ 250 mls/hr IVPB ONCE ONE Rx#:[id number] Sodium Chloride 0.9% 1, 500 000 ml @ 100 mls/hr IV . Q10H [facility] Rx#:[id number] cefTRIAXone 1 gm In 50 Sodium Chloride 0.9% 50 ml @ 100 mls/hr IVPB Q24HR [facility] Rx#:[id number] Oral 290 Blood Product 0 212 Ffp Pher Conval Covid19 0 212 Acda 2 Unit [id number] Other: Voiding Method Bedside Commode Bedside Commode # Voids 1 - Exam GENERAL EXAM: Alert, very pleasant 64-year-old female patient on nonrebreather mask with O2 saturation 90% in mild respiratory distress. HEAD: Normocephalic. EYES: Normal reaction of pupils, equal size. NOSE: Clear with pink turbinates. THROAT: No erythema or exudates. NECK: No masses, no JVD. CHEST: No chest wall deformity. LUNGS: Equal air entry with bibasilar coarse crackles. CVS: S1 and S2 normal with no audible murmur, regular rhythm. ABDOMEN: No hepatosplenomegaly, normal bowel sounds, no guarding or rigidity. SPINE: No scoliosis or deformity SKIN: No rashes CENTRAL NERVOUS SYSTEM: No focal deficits, tone is normal in all 4 extremities. EXTREMITIES: There is no peripheral edema. No clubbing, no cyanosis. Periphera l pulses are intact. - Labs CBC & Chem 7: 07/28/20 03:29 07/28/20 03:29 Labs: Microbiology - Last 24 Hours (Table) 07/29/20 09:55 Sputum Culture - Preliminary Sputum 07/28/20 03:50 Blood Culture - Preliminary Blood No Growth after 24 hours Assessment and Plan Assessment: 1 Acute hypoxic respiratory failure, consider possibility of COVID 19 related pneumonia, although patient tested negative twice on outpatient and in the emergency department using that rapid COVID 19 test. In view of her recent history of exposure to her COVID 19 positive mother, who had from complications related to COVID 19, we will send COVID 19 antibody test, she is on treatment with Remdesivir, dexamethasone, convalescent plasma, and prophylactic anticoagulation. Rule out possibility of influenza infection. Computed tomography scan of the chest reveals significant diffuse bilateral airspace disease correlate for diffuse pneumonia versus ARDS 2 Possibility of bacterial pneumonia is also being considered, Legionella urine antigen, mycoplasma pneumonia antibody IgM and IgA, pro-calcitonin level, will cover with azithromycin and Rocephin 3 History of rheumatoid arthritis, at this time it's unknown if patient has any chronic parenchymal changes from underlying history of rheumatoid arthritis 4 Hypothyroidism 5 Increased inflammatory markers including LDH, and CRP 6 Increased AST and ALT possibility of viral or bacterial pneumonia Plan: The patient was seen and evaluated by Dr. Nicole CAT scan reviewed We will change the patient over to AirVo pro-flow oxygen Continue the current treatment plan If any deterioration in oxygenation may require transfer to the ICU If no improvement may discontinue dexamethasone and change to IV Solu-Medrol in a.m. We will continue to follow and make further recommendations based on her clinical status. I, the cosigning physician, performed a history & physical examination of the patient. Lungs sounds with bibasilar crackles. Maintaining good O2 saturations in the 90s on AirVo high flow oxygen at 60 L and 90% FiO2. I discussed the assessment and plan of care with my nurse practitioner, Mildred Cazares. I attest to the above note as dictated by her.
[2020-07-29] MEDS ORDERED: ENOXAPARIN 60 MG/0.6 ML SYRINGE SQ SCH (21:00)
[2020-07-30] MEDS: SODIUM CHLORIDE 0.9% 1,000 ML IV SCH ×2 (00:11→17:27)
[2020-07-30] MEDS ORDERED: ACETAMINOPHEN TAB 325 MG TAB PO PRN (03:04)
[2020-07-30] MEDS: KETOROLAC 15 MG/ML 1 ML VIAL IVP SCH ×3 (03:09→12:12)
[2020-07-30] MEDS: LEVOTHYROXINE 75 MCG TAB PO SCH (05:48)
[2020-07-30] MEDS: ALBUTEROL HFA INHALER INHALATION SCH ×4 (07:20→19:32)
[2020-07-30] MEDS: dexAMETHasone 2 MG TAB PO SCH (08:34)
[2020-07-30] MEDS: ENOXAPARIN 40 MG/0.4 ML SYRINGE SQ SCH ×2 (08:34→20:03)
[2020-07-30] MEDS: CHOLECALCIFEROL 1,000 UNIT TAB PO SCH (08:34)
[2020-07-30] MEDS: ASCORBIC ACID 500 MG TAB PO SCH (08:35)
[2020-07-30] MEDS: PANTOPRAZOLE 40 MG TABLET PO SCH (08:35)
[2020-07-30] MEDS: ZINC SULFATE 220 MG CAP PO SCH (08:35)
[2020-07-30] MEDS: AZITHROMYCIN 500 MG in SODIUM CHLORIDE 0.9% 250 ML IVPB SCH (09:15)
[2020-07-30 10:18] LABS: Glucose,Whole Blood 185 mg/dL (75-99)
[2020-07-30 11:08] LABS: C Reactive Protein 12.8 mg/dL (0.0-0.8)
[2020-07-30 11:16] LABS: Basophils # (A) 0.1 k/uL (0-0.2); Basophils % (A) 1 %; Eosinophils % (A) 0 %; HCT 37.8 % (34.0-46.0); HGB 12.2 gm/dL (11.4-16.0); Lymphocytes # (A) 0.8 k/uL (1.0-4.8); Lymphocytes % (A) 6 %; MCH 29.2 pg (25.0-35.0); MCHC 32.3 g/dL (31.0-37.0); MCV 90.6 fL (80.0-100.0); Mean Platelet Volume 7.5; Monocytes # (A) 0.3 k/uL (0-1.0); Monocytes % (A) 2 %; Neutrophils # (A) 13.5 k/uL (1.3-7.7); Neutrophils % (A) 91 %; Platelet Count 309 k/uL (150-450); RBC 4.17 m/uL (3.80-5.40); RDW 13.1 % (11.5-15.5)
[2020-07-30 11:26] LABS: ALT 68 U/L (4-34); AST 63 U/L (14-36); African American GFR (CKD) >90 (>60 ml/min/1.73 sqM); Albumin 3.1 g/dL (3.5-5.0); Alkaline Phosphatase 109 U/L (38-126); Anion Gap 7 mmol/L; Blood Urea Nitrogen 20 mg/dL (7-17); Calcium 8.2 mg/dL (8.4-10.2); Carbon Dioxide 24 mmol/L (22-30); Chloride 107 mmol/L (98-107); Glucose 149 mg/dL (74-99); Magnesium 2.1 mg/dL (1.6-2.3); Non-African American GFR(CKD) >90 (>60 ml/min/1.73 sqM); Potassium 4.3 mmol/L (3.5-5.1); Sodium 138 mmol/L (137-145); Total Bilirubin 0.4 mg/dL (0.2-1.3); Total Protein 6.7 g/dL (6.3-8.2)
--- NOTE | 2020-07-30 11:30 | P.PN ---
Subjective Progress Note Date: 07/30/20 HISTORY OF PRESENT ILLNESS This is a 64-year-old female patient of Dr. Mcdonough with a past medical history of hypothyroidism, rheumatoid arthritis. Patient was recently exposed to her mother with Covid 19. Mother last day had had stated her home. She now complains of cough and shortness of breath. She denies having any fever. Patient presented to [facility] emergency center for evaluation. She is found to be afebrile, heart rate 90, blood pressure 142/76, pulse ox 81% on room air. WBC 18.8, d-dimer 0.63, blood sugar 171. AST 94, ALT 126. LDH 1234. CK 36. Troponin negative. C-reactive protein 186.8. ProBNP 128. COVID-19 nondetected. Chest x-ray reveals moderate to severe. She rounded interstitial infiltrates throughout the mid and lower lungs bilaterally consistent with Covid 19 pneumonia inhalers, Lovenox, consult requested with pulmonary medicine [facility]. 07/29: The patient is now requiring nonrebreather and high flow nasal cannula 15 L with pulse ox of 95%. She has been afebrile, heart rate 68, blood pressure 121/72. She has been started on Remdesivir, day 2/5. Blood cultures are showing no growth at 24 hours. She continues to have a cough and cough with deep breathing. She denies chest pain or abdominal pain. Lovenox increase to twice daily. CAT scan angiogram of the chest ordered to rule out pulmonary embolism. This revealed diffuse bilateral airspace disease correlate for diffuse pneumonia or ARDS. No central pulmonary embolism distal branches are limited. 07/30: Patient is on day #3/5 on Remdesivir. She is status post convalescent plasma transfusion. The patient was transitioned to AirVo yesterday currently pulse oxing in the mid 80s on FiO2 90, flow rate of 60. Patient is to be transferred to the intensive care unit. Patient is complaining of shortness of breath as well as chest feeling tight and dry. Patient denies having any nausea, vomiting, diarrhea or abdominal pain. She's been afebrile, heart rate 65, blood pressure 143/58. D-dimer 0.63. Legionella negative. Sputum culture is in process. WBC 15, hemoglobin 12.2, platelet count 309, lymphocytes 0.8. Electrolytes normal, creatinine 0.5. Total bilirubin 0.4, AST 63, ALT 68, alkal ine phosphatase 109. LDH 482. C-reactive protein 12.8. Troponin 1 negative. Mycoplasma testing is in process. Discussed CODE STATUS the patient wishes to BE a full code. REVIEW OF SYSTEMS Constitutional: No fever, no chills, no night sweats. No weight change. Report s weakness, reports fatigue. No daytime sleepiness. EENT: No headache. No blurred vision or double vision, no loss of vision. No loss of Hearing, no ringing in the ears, no dizziness. No nasal drainage or congestion. No epistaxis. No sore throat. Lungs: Reports shortness of breath, Reports cough, no sputum production. No wheezing. Cardiovascular: Reports chest pain, no lower extremity edema. No palpitations. No paroxysmal nocturnal dyspnea. No orthopnea. No lightheadedness or dizzines s. No syncopal episodes. Abdominal: No abdominal pain. No nausea, vomiting. No diarrhea. No cons tipation. No bloody or tarry stools. No loss of appetite. Genitourinary: No dysuria, increased frequency, urgency. No urinary retention. Musculoskeletal: No myalgias. No muscle weakness, no gait dysfunction, no frequent falls. No back pain. No neck pain. Integumentary: No wounds, no lesions. No rash or pruritus. Neurologic: No aphasia. No facial droop. No change in mentation. No head injury. No headache. No paralysis. No paresthesia. Psychiatric: No depression. No anxiety. Endocrine: Elevated blood sugars. PHYSICAL EXAMINATION Gen: This is a 64-year-old female. She appears to be in mild to moderate acute distress at the time of evaluation. HEENT: Head is atraumatic, normocephalic. Pupils equal, round. Sclerae is anicteric. NECK: Supple. No JVD. No lymphadenopathy. No thyromegaly. LUNGS: Fine crackles bilaterally throughout. No wheezing. Mild intercostal retractions. Mild accessory muscle usage. HEART: Regular rate and rhythm. No murmur. ABDOMEN: Soft. Bowel sounds are present. No masses. No tenderness. EXTREMITIES: No pedal edema. No calf tenderness. NEUROLOGICAL: Patient is awake, alert and oriented x3. Cranial nerves 2 through 12 are grossly intact. ASSESSMENT AND PLAN 1. Acute hypoxic respiratory failure secondary to Covid 19 pneumonia. Pulmonary medicine consult appreciated. Covid 19 antibody test was ordered. Patient on Remdesivir day 3/, status post 1 unit convalescent plasma. Continue albuterol inhaler, vitamin supplements, azithromycin, ceftriaxone, dexamethasone 6 mg oral daily, Lovenox 40 mg twice daily. Influenza testing negative, Legionella testing negative. Continue oxygen therapy. CTA as above. Patient be transferred to the intensive care unit. She is currently on AirVo. 2. Acute bilateral pneumonia, Covid 19 pneumonia, possible bacterial pneumonia. 3. Elevated inflammatory markers consistent with Covid 19 pneumonia. 4. Rheumatoid arthritis. 5. Hypothyroidism. Continue levothyroxine 75 g daily. 6. GI prophylaxis. Protonix. 7. DVT prophylaxis. Lovenox. DISCHARGE PLAN Most likely return home. Impression and plan of care have been directed as dictated by the signing physician. Leanne Luna nurse practitioner acting as scribe for signing physician. Objective - Vital Signs Vital signs: Vital Signs Temp 99.1 F 07/30/20 04:11 Pulse 65 07/30/20 04:11 Resp 20 07/30/20 04:11 BP 143/58 07/30/20 04:11 Pulse Ox 97 07/30/20 07:26 Intake & Output 07/29/20 07/30/20 07/30/20 18:59 06:59 18:59 Intake Total 1650 500 Balance 1650 500 Intake: Intake, IV Titration 1650 500 Amount Azithromycin 500 mg In 250 Sodium Chloride 0.9% 250 ml @ 250 mls/hr IVPB DAILY LOAN Rx#:[id number] Remdesivir 100 mg In 250 Sodium Chloride 0.9% 250 ml @ 250 mls/hr IVPB DAILY@1200 LOAN Rx#: [id number] Sodium Chloride 0.9% 1, 1100 500 000 ml @ 100 mls/hr IV . Q10H LOAN Rx#:[id number] cefTRIAXone 1 gm In 50 Sodium Chloride 0.9% 50 ml @ 100 mls/hr IVPB Q24HR LOAN Rx#:[id number] Other: Voiding Method Bedside Commode Bedside Commode # Voids 3 2 - Labs CBC & Chem 7: 07/30/20 11:00 07/30/20 11:00 Labs: Abnormal Lab Results - Last 24 Hours (Table) 07/30/20 Range/Units 05:45 D-Dimer 0.63 H (<0.60) mg/L FEU Microbiology - Last 24 Hours (Table) 07/28/20 03:50 Blood Culture - Preliminary Blood No Growth after 48 hours 07/29/20 09:55 Gram Stain - Preliminary Sputum Sputum Culture - Preliminary
[2020-07-30] MEDS: methylPREDNISolone SOD SUCCI 125 MG/2 ML VIAL IV SCH ×3 (12:13→22:42)
[2020-07-30] MEDS: INSULIN ASPART (NovoLOG) 100 UNIT/ML VIAL SQ SCH ×3 (12:13→20:17)
[2020-07-30] MEDS: REMDESIVIR 100 MG in SODIUM CHLORIDE 0.9% 250 ML IVPB SCH (12:13)
--- NOTE | 2020-07-30 13:12 | P.PN ---
Subjective Progress Note Date: 07/30/20 Principal diagnosis: Acute hypoxic respiratory failure secondary to acute covid19 pneumonia. This is a 64-year-old female patient of Dr. Lamin Mcdonough, who presented to the emergency department on July 2020 with one week history of fatigue, body aches, chills, worsening shortness of breath with multiple family members not feeling well with similar symptoms. Apparently patient tested for coronavirus and was found to be negative, in view of significant shortness of breath and hypoxemia with a pulse ox in the low 80s, EMS was called. Of note patient's mother recently passed in this hospital of COVID 19 related complications. Patient's daughter is also hospitalized with COVID 19 symptoms. Chest x-ray showed [id number] patchy rounded interstitial infiltrates throughout mid to lower lungs consistent with COVID 19 pneumonia. White blood cell count is 18.8, hemoglobin is 13, neutrophil count is 16.6, lymphocyte count was 1.4, d-dimer 0.63, electrolytes are within normal limits, BUN is 19 creatinine 0.5, lactic acid is 1.2, repeat COVID 19 rapid test in the emergency department was again negative. Patient's creatinine 8 L of oxygen pulse ox is 90-95%. The patient is seen today 07/29/2020 in follow-up on the regular medical floor. She is currently awake and alert and she is in mild respiratory distress. Her oxygen requirements have increased overnight. She is currently on 15 L high flow nasal cannula initially on a nonrebreather mask. She's currently afebrile. Computed tomography scan of the chest reveals diffuse bilateral airspace disease consistent with CoVID 19 pneumonitis. No evidence of pulmonary embolism. She did receive 1 unit of convalescent plasma. Blood and sputum cultures are pending. She is currently on ceftriaxone and azithromycin along with dexamethasone, Lovenox, vitamin supplements. This is day #2 of Remdesivir. A shunt was reevaluated today on 07/30/2020, patient took a downhill course clinically this morning, continued to desaturate, required higher FiO2, and she is now on 60 L high flow, and 90% FiO2 on airvo. Patient was noted to be dyspneic by the nurse taking care of her. Her oxygen requirement jumped up significantly, hence I recommended transferring the patient to the ICU. Patient is on remdesivir, day #3, and she received 1 unit of convalescent plasma. Patient remains on antibiotics empirically in the form of Rocephin and Zithromax, she is also on dexamethasone, Lovenox, and vitamin supplements. Objective - Vital Signs Vital signs: Vital Signs Temp 98.6 F 07/30/20 12:54 Pulse 80 07/30/20 13:00 Resp 30 H 07/30/20 13:00 BP 111/85 07/30/20 13:00 Pulse Ox 93 L 07/30/20 13:00 Intake & Output 07/29/20 07/30/20 07/30/20 18:59 06:59 18:59 Intake Total 1650 500 550 Output Total 0 Balance 1650 500 550 Intake: IV 550 Azithromycin 500 mg In 250 Sodium Chloride 0.9% 250 ml @ 250 mls/hr IVPB DAILY [facility] Rx#:[id number] Sodium Chloride 0.9% 1, 300 000 ml @ 100 mls/hr IV . Q10H LOAN Rx#:[id number] Intake, IV Titration 1650 500 Amount Azithromycin 500 mg In 250 Sodium Chloride 0.9% 250 ml @ 250 mls/hr IVPB DAILY LOAN Rx#:[id number] Remdesivir 100 mg In 250 Sodium Chloride 0.9% 250 ml @ 250 mls/hr IVPB DAILY@1200 LOAN Rx#: [id number] Sodium Chloride 0.9% 1, 1100 500 000 ml @ 100 mls/hr IV . Q10H LOAN Rx#:[id number] cefTRIAXone 1 gm In 50 Sodium Chloride 0.9% 50 ml @ 100 mls/hr IVPB Q24HR LOAN Rx#:[id number] Blood Product 0 Ffp Pher Conval Covid19 0 Acda 1 Unit [id number] Output: Urine 0 Other: Voiding Method Bedside Commode Bedside Commode # Voids 3 2 - Exam GENERAL EXAM: Revealed a 64-year-old female in mild distress, on high flow oxygen and high FiO2. HEAD: Normocephalic. Atraumatic. ENT: PERRLA, EOMI, nonicteric sclerae. Dry mucous membranes noted. CHEST: No chest wall deformity. LUNGS: Symmetrical chest expansion, fine crackles at the bases noted bilaterally. CVS: S1 and S2 normal with no audible murmur, regular rhythm. ABDOMEN: Obese, soft, nontender, no megaly, no rebound, no guarding, positive bowel sounds. SKIN: No rashes CENTRAL NERVOUS SYSTEM: Alert and oriented 3, no gross focal deficits.. EXTREMITIES: No clubbing edema or cyanosis, good pulses bilaterally. Psychiatric: Normal mood, affect and normal mental status examination. - Labs CBC & Chem 7: 07/30/20 11:00 07/30/20 11:00 Labs: Abnormal Lab Results - Last 24 Hours (Table) 07/30/20 07/30/20 07/30/20 Range/Units 05:45 05:45 10:15 WBC (3.8-10.6) k/uL Neutrophils # (1.3-7.7) k/uL Lymphocytes # (1.0-4.8) k/uL D-Dimer 0.63 H (<0.60) mg/L FEU BUN (7-17) mg/dL Creatinine (0.52-1.04) mg/dL Glucose (74-99) mg/dL POC Glucose (mg/dL) 185 H (75-99) mg/dL Calcium (8.4-10.2) mg/dL AST (14-36) U/L ALT (4-34) U/L Lactate Dehydrogenase 482 H (120-246) U/L C-Reactive Protein 12.8 H (0.0-0.8) mg/dL Albumin (3.5-5.0) g/dL 07/30/20 07/30/20 Range/Units 11:00 11:00 WBC 15.0 H (3.8-10.6) k/uL Neutrophils # 13.5 H (1.3-7.7) k/uL Lymphocytes # 0.8 L (1.0-4.8) k/uL D-Dimer (<0.60) mg/L FEU BUN 20 H (7-17) mg/dL Creatinine 0.50 L (0.52-1.04) mg/dL Glucose 149 H (74-99) mg/dL POC Glucose (mg/dL) (75-99) mg/dL Calcium 8.2 L (8.4-10.2) mg/dL AST 63 H (14-36) U/L ALT 68 H (4-34) U/L Lactate Dehydrogenase (120-246) U/L C-Reactive Protein (0.0-0.8) mg/dL Albumin 3.1 L (3.5-5.0) g/dL Microbiology - Last 24 Hours (Table) 07/28/20 03:50 Blood Culture - Preliminary Blood No Growth after 48 hours 07/29/20 09:55 Gram Stain - Preliminary Sputum Sputum Culture - Preliminary Assessment and Plan Assessment: Impression: Acute hypoxic respiratory failure secondary to covid [address] of the chest, possible underlying bacterial pneumonia, however clinically felt to be less likely. Pro-calcitonin is relatively low at 0.08. Elevated transaminases secondary to covid 19 infection. History of hypothyroidism. History of rheumatoid arthritis. Recommendation: Considering the worsening of her pulmonary status, patient was stressed to the ICU for close monitoring, may or may not require intubation at this point. But at this point in time she seems to be holding well with airvo Continue the Covid 19 cocktail. Continue steroids, transition to Solu-Medrol. Continue Lovenox. Continue remdesivir Prognosis remains guarded, Patient is critically ill, We will continue to follow in the ICU. Time with Patient: Greater than 30
[2020-07-30 16:17] LABS: Glucose,Whole Blood 227 mg/dL (75-99)
[2020-07-30 20:14] LABS: Glucose,Whole Blood 190 mg/dL (75-99)
[2020-07-30] MEDS: guaiFENesin-Coden 100-10MG/5ML 10 ML CUP PO PRN (20:17)
[2020-07-30] MEDS: HYDROcodone/APAP 5-325MG 1 EACH TAB PO PRN (22:37)
[2020-07-30 23:49] LABS: Glucose,Whole Blood 136 mg/dL (75-99)
[2020-07-31] MEDS: guaiFENesin-Coden 100-10MG/5ML 10 ML CUP PO PRN ×2 (01:21→09:59)
[2020-07-31 04:36] LABS: Mycoplasma IgG Antibody (EIA) 1.63 INDEX (<=0.90)
[2020-07-31 04:37] LABS: Mycoplasma IgM Antibody 0.61 INDEX (<=0.90)
[2020-07-31 04:42] LABS: Basophils % (A) 0 %; Eosinophils % (A) 0 %; HCT 33.6 % (34.0-46.0); HGB 11.3 gm/dL (11.4-16.0); Lymphocytes % (A) 8 %; MCH 30.3 pg (25.0-35.0); MCHC 33.7 g/dL (31.0-37.0); MCV 89.7 fL (80.0-100.0); Mean Platelet Volume 7.8; Monocytes # (A) 0.3 k/uL (0-1.0); Monocytes % (A) 3 %; Neutrophils # (A) 10.4 k/uL (1.3-7.7); Neutrophils % (A) 87 %; Platelet Count 328 k/uL (150-450); RBC 3.74 m/uL (3.80-5.40); WBC 11.9 k/uL (3.8-10.6)
[2020-07-31 05:24] LABS: ALT 62 U/L (4-34); AST 47 U/L (14-36); African American GFR (CKD) >90 (>60 ml/min/1.73 sqM); Alkaline Phosphatase 108 U/L (38-126); Anion Gap 5 mmol/L; Blood Urea Nitrogen 22 mg/dL (7-17); C Reactive Protein 59.7 mg/L (<10.0); Calcium 8.2 mg/dL (8.4-10.2); Carbon Dioxide 28 mmol/L (22-30); Chloride 106 mmol/L (98-107); Glucose 187 mg/dL (74-99); Non-African American GFR(CKD) >90 (>60 ml/min/1.73 sqM); Potassium 4.3 mmol/L (3.5-5.1); Sodium 139 mmol/L (137-145); Total Bilirubin 0.4 mg/dL (0.2-1.3); Total Protein 6.2 g/dL (6.3-8.2)
[2020-07-31] MEDS: SODIUM CHLORIDE 0.9% 1,000 ML IV SCH ×3 (05:44→21:02)
[2020-07-31] MEDS: LEVOTHYROXINE 75 MCG TAB PO SCH (05:47)
[2020-07-31] MEDS: methylPREDNISolone SOD SUCCI 125 MG/2 ML VIAL IV SCH ×4 (05:47→23:58)
[2020-07-31] MEDS: PANTOPRAZOLE 40 MG TABLET PO SCH (05:47)
[2020-07-31 05:59] LABS: Glucose,Whole Blood 194 mg/dL (75-99)
[2020-07-31] MEDS: INSULIN ASPART (NovoLOG) 100 UNIT/ML VIAL SQ SCH ×4 (06:08→21:00)
[2020-07-31] MEDS: CHOLECALCIFEROL 1,000 UNIT TAB PO SCH (08:09)
[2020-07-31] MEDS: ZINC SULFATE 220 MG CAP PO SCH (08:09)
[2020-07-31] MEDS: ENOXAPARIN 40 MG/0.4 ML SYRINGE SQ SCH ×2 (08:09→20:31)
[2020-07-31] MEDS: ASCORBIC ACID 500 MG TAB PO SCH (08:09)
[2020-07-31] MEDS: AZITHROMYCIN 500 MG in SODIUM CHLORIDE 0.9% 250 ML IVPB SCH (08:10)
--- NOTE | 2020-07-31 08:26 | XR ---
EXAMINATION TYPE: XR chest 1V portable DATE OF EXAM: 07/31/2020 COMPARISON: Prior chest x-ray 07/28/2020 HISTORY: Covid pneumonia TECHNIQUE: Single frontal view of the chest is obtained. FINDINGS: Bilateral patchy airspace disease persists. Lung volumes are low and the patient is rotate d. Cardiomediastinal silhouette is not significantly changed accounting for differences in technique. IMPRESSION: Correlate for pneumonia.
[2020-07-31] MEDS: ALBUTEROL HFA INHALER INHALATION SCH ×4 (08:44→21:39)
[2020-07-31 09:24] LABS: Ferritin 649.8 ng/mL (10.0-291.0)
[2020-07-31] MEDS: NYSTATIN 100,000 UNIT/ML SUSP 500,000 UNIT/5 ML CUP PO SCH ×4 (09:59→21:00)
--- NOTE | 2020-07-31 10:50 | P.PN ---
Subjective Progress Note Date: 07/31/20 Principal diagnosis: COVID 19 pneumonitis This is a 64-year-old female patient of Dr. Lamin Mcdonough, who presented to the emergency department on July 2020 with one week history of fatigue, body aches, chills, worsening shortness of breath with multiple family members not feeling well with similar symptoms. Apparently patient tested for coronavirus and was found to be negative, in view of significant shortness of breath and hypoxemia with a pulse ox in the low 80s, EMS was called. Of note patient's mother recently passed in this hospital of COVID 19 related complications. Patient's daughter is also hospitalized with COVID 19 symptoms. Chest x-ray showed [id number] patchy rounded interstitial infiltrates throughout mid to lower lungs consistent with COVID 19 pneumonia. White blood cell count is 18.8, hemoglobin is 13, neutrophil count is 16.6, lymphocyte count was 1.4, d-dimer 0.63, electrolytes are within normal limits, BUN is 19 creatin ine 0.5, lactic acid is 1.2, repeat COVID 19 rapid test in the emergency department was again negative. Patient's creatinine 8 L of oxygen pulse ox is 90-95%. The patient is seen today 07/29/2020 in follow-up on the regular medical floor. She is currently awake and alert and she is in mild respiratory distress. Her oxygen requirements have increased overnight. She is currently on 15 L high fl ow nasal cannula initially on a nonrebreather mask. She's currently afebrile. Computed tomography scan of the chest reveals diffuse bilateral airspace disease consistent with CoVID 19 pneumonitis. No evidence of pulmonary embolism. She did receive 1 unit of convalescent plasma. Blood and sputum cultures are pending. She is currently on ceftriaxone and azithromycin along with dexamethasone, Lovenox, vitamin supplements. This is day #2 of Remdesivir. A shunt was reevaluated today on 07/30/2020, patient took a downhill course clinically this morning, continued to desaturate, required higher FiO2, and she is now on 60 L high flow, and 90% FiO2 on airvo. Patient was noted to be dyspneic by the nurse taking care of her. Her oxygen requirement jumped up significantly, hence I recommended transferring the patient to the ICU. Patient is on remdesivir, day #3, and she received 1 unit of convalescent plasma. Patient remains on antibiotics empirically in the form of Rocephin and Zithrom ax, she is also on dexamethasone, Lovenox, and vitamin supplements. On 07/31/2020 patient seen in follow-up in the intensive care unit, she is awake and alert, still requiring quite a bit of oxygen, she is on high flow per Airvo at 60 L and FiO2 of 90% in addition to 100% nonrebreather mask her pulse ox is ranging between 88-90-91%, but seems to be in no acute distress. Blood pressure stable, patient has been afebrile, she is short of breath with any exertion, no chest discomfort. Today's chest x-ray has been reviewed showing bilateral patchy airspace disease persistence, low lung volumes and patient is rotated. Today's labs have been reviewed, showing white blood cell count of 11.9, hem oglobin is 11.3, d-dimer is 0.60, electrolytes and renal profile are unremarkable. Ferritin level is 649, liver enzymes are improving, AST is down to 47, ALT 62, LDH was improving from admission, and was down to 482 on yesterday's labs, CRP is up a bit from yesterday but overall is down compared to admission, pro-calcitonin level is negative at 0.08, patient's Covid 19 antibiotic test came back reactive confirming suspicion for Covid 19 related pneumonitis, Legionella urine antigen was negative, and mycoplasma pneumonia IgG came back elevated and mycoplasma pneumonia IgM was low at 0.61, suggesting exposure to mycoplasma pneumonia infection in the past but no current infection. Blood and sputum cultures have been negative. Patient is status post transfusion with 2 units of convalescent plasma and patient is on day 3 of Remdesivir treatment, she is on high-dose IV steroids with Solu-Medrol 40 mg every 6 hours and Lovenox at 40 mg twice daily Objective - Vital Signs Vital signs: Vital Signs Temp 98.2 F 07/31/20 04:00 Pulse 78 07/31/20 10:00 Resp 26 H 07/31/20 10:00 BP 149/73 07/31/20 10:00 Pulse Ox 88 L 07/31/20 10:00 Intake & Output 07/30/20 07/31/20 07/31/20 18:59 06:59 18:59 Intake Total 1506 1200 500 Output Total 500 2250 Balance 1006 -1050 500 Weight 70.9 kg Intake: IV 1300 1200 300 Azithromycin 500 mg In 250 Sodium Chloride 0.9% 250 ml @ 250 mls/hr IVPB DAILY LOAN Rx#:[id number] Remdesivir 100 mg In 250 Sodium Chloride 0.9% 250 ml @ 250 mls/hr IVPB DAILY@1200 LOAN Rx#: [id number] Sodium Chloride 0.9% 1, 800 1200 300 000 ml @ 100 mls/hr IV . Q10H LOAN Rx#:[id number] Oral 200 Blood Product 206 Ffp Pher Conval Covid19 206 Acda 1 Unit [id number] Output: Urine 500 2250 Other: Voiding Method Bedside Commode Bedside Commode Bedside Commode - Exam GENERAL EXAM: Alert, oriented, 64-year-old female on Airvo at 60 l/min, and Fio2 90%, 100% NRB comfortable in no apparent distress. HEAD: Normocephalic/atraumatic. EYES: Normal reaction of pupils, equal size. Conjunctiva pink, sclera white. NOSE: Clear with pink turbinates. THROAT: No erythema or exudates. NECK: No masses, no JVD, no thyroid enlargement, no adenopathy. CHEST: No chest wall deformity. Symmetrical expansion. LUNGS: Equal air entry with no crackles, wheeze, rhonchi or dullness. CVS: Regular rate and rhythm, normal S1 and S2, no gallops, no murmurs, no rubs ABDOMEN: Soft, nontender. No hepatosplenomegaly, normal bowel sounds, no guarding or rigidity. EXTREMITIES: No clubbing, no edema, no cyanosis, 2+ pulses and upper and lower extremities. MUSCULOSKELETAL: Muscle strength and tone normal. SPINE: No scoliosis or deformity SKIN: No rashes CENTRAL NERVOUS SYSTEM: Alert and oriented -3. No focal deficits, tone is normal in all 4 extremities. PSYCHIATRIC: Alert and oriented -3. Appropriate affect. Intact judgment and insight. - Labs CBC & Chem 7: 07/31/20 03:32 07/31/20 03:32 Labs: Abnormal Lab Results - Last 24 Hours (Table) 07/29/20 07/30/20 07/30/20 Range/Units 06:17 05:45 11:00 WBC 15.0 H (3.8-10.6) k/uL RBC (3.80-5.40) m/uL Hgb (11.4-16.0) gm/dL Hct (34.0-46.0) % Neutrophils # 13.5 H (1.3-7.7) k/uL Lymphocytes # 0.8 L (1.0-4.8) k/uL D-Dimer (<0.60) mg/L FEU BUN (7-17) mg/dL Creatinine (0.52-1.04) mg/dL Glucose (74-99) mg/dL POC Glucose (mg/dL) (75-99) mg/dL Calcium (8.4-10.2) mg/dL Ferritin (10.0-291.0) ng/mL AST (14-36) U/L ALT (4-34) U/L Lactate Dehydrogenase 482 H (120-246) U/L C-Reactive Protein 12.8 H (0.0-0.8) mg/dL Total Protein (6.3-8.2) g/dL Albumin (3.5-5.0) g/dL Mycoplasma pneumon IgG 1.63 H (<=0.90) INDEX 07/30/20 07/30/20 07/30/20 Range/Units 11:00 16:15 20:12 WBC (3.8-10.6) k/uL RBC (3.80-5.40) m/uL Hgb (11.4-16.0) gm/dL Hct (34.0-46.0) % Neutrophils # (1.3-7.7) k/uL Lymphocytes # (1.0-4.8) k/uL D-Dimer (<0.60) mg/L FEU BUN 20 H (7-17) mg/dL Creatinine 0.50 L (0.52-1.04) mg/dL Glucose 149 H (74-99) mg/dL POC Glucose (mg/dL) 227 H 190 H (75-99) mg/dL Calcium 8.2 L (8.4-10.2) mg/dL Ferritin (10.0-291.0) ng/mL AST 63 H (14-36) U/L ALT 68 H (4-34) U/L Lactate Dehydrogenase (120-246) U/L C-Reactive Protein (0.0-0.8) mg/dL Total Protein (6.3-8.2) g/dL Albumin 3.1 L (3.5-5.0) g/dL Mycoplasma pneumon IgG (<=0.90) INDEX 07/30/20 07/31/20 07/31/20 Range/Units 23:45 03:32 03:32 WBC 11.9 H (3.8-10.6) k/uL RBC 3.74 L (3.80-5.40) m/uL Hgb 11.3 L (11.4-16.0) gm/dL Hct 33.6 L (34.0-46.0) % Neutrophils # 10.4 H (1.3-7.7) k/uL Lymphocytes # (1.0-4.8) k/uL D-Dimer 0.60 H (<0.60) mg/L FEU BUN (7-17) mg/dL Creatinine (0.52-1.04) mg/dL Glucose (74-99) mg/dL POC Glucose (mg/dL) 136 H (75-99) mg/dL Calcium (8.4-10.2) mg/dL Ferritin (10.0-291.0) ng/mL AST (14-36) U/L ALT (4-34) U/L Lactate Dehydrogenase (120-246) U/L C-Reactive Protein (0.0-0.8) mg/dL Total Protein (6.3-8.2) g/dL Albumin (3.5-5.0) g/dL Mycoplasma pneumon IgG (<=0.90) INDEX 07/31/20 07/31/20 Range/Units 03:32 05:57 WBC (3.8-10.6) k/uL RBC (3.80-5.40) m/uL Hgb (11.4-16.0) gm/dL Hct (34.0-46.0) % Neutrophils # (1.3-7.7) k/uL Lymphocytes # (1.0-4.8) k/uL D-Dimer (<0.60) mg/L FEU BUN 22 H (7-17) mg/dL Creatinine (0.52-1.04) mg/dL Glucose 187 H (74-99) mg/dL POC Glucose (mg/dL) 194 H (75-99) mg/dL Calcium 8.2 L (8.4-10.2) mg/dL Ferritin 649.8 H (10.0-291.0) ng/mL AST 47 H (14-36) U/L ALT 62 H (4-34) U/L Lactate Dehydrogenase (120-246) U/L C-Reactive Protein 59.7 H (0.0-0.8) mg/dL Total Protein 6.2 L (6.3-8.2) g/dL Albumin 3.0 L (3.5-5.0) g/dL Mycoplasma pneumon IgG (<=0.90) INDEX Microbiology - Last 24 Hours (Table) 07/29/20 09:55 Gram Stain - Final Sputum Sputum Culture - Final 07/28/20 03:50 Blood Culture - Preliminary Blood No Growth after 72 hours Assessment and Plan Plan: Assessment: #1. Acute hypoxic respiratory failure, related to COVID 19 related pneumonitis, patient had 3 negative COVID 19 rapid test, however the diagnosis was confirmed with reactive antibiotic test, patient was initiated on Remdesivir on 07/28/2020 #2. Possibility of bacterial pneumonia ruled out based on negative pro- calcitonin, negative urine Legionella antigen, and negative mycoplasma IgM #3. History of rheumatoid arthritis, at this time it's unknown if patient has any chronic parenchymal changes from underlying history of rheumatoid arthritis #4. Hypothyroidism #5. Increased inflammatory markers including LDH, and CRP #6. Increased AST and ALT related to viral pneumonia secondary to COVID 19, improving Plan: Continue current medical treatment, and today is day 3 of Remdesivir treatment, continue high-dose IV steroids, patient is status post 2 units of convalescent plasma, continue prophylactic dose of Lovenox, continue the vitamins, vitamin C, vitamin D, zinc supplement, we'll continue to closely monitoring patient in the intensive care unit, congestion supportive treatment, in the event of worsening dyspnea or hypoxia will move to intubation and placement on mechanical ventilator. Discontinue azithromycin and Rocephin. I performed a history & physical examination of the patient and discussed their management with my nurse practitioner, Lilly Green. I reviewed the nurse practitioner's note and agree with the documented findings and plan of care. Lung sounds are positive for diminished breath soudns, and yusuf crackles. The findings and the impression was discussed with the patient. I attest to the d ocumentation by the nurse practitioner. Time with Patient: Greater than 30
[2020-07-31] MEDS ORDERED: ALPRAZolam 0.5 MG TAB PO STA (11:05)
[2020-07-31] MEDS: REMDESIVIR 100 MG in SODIUM CHLORIDE 0.9% 250 ML IVPB SCH (11:25)
[2020-07-31 12:03] LABS: Glucose,Whole Blood 211 mg/dL (75-99)
--- NOTE | 2020-07-31 16:21 | P.PN ---
Subjective Progress Note Date: 07/31/20 HISTORY OF PRESENT ILLNESS This is a 64-year-old female patient of Dr. Mcdonough with a past medical history of hypothyroidism, rheumatoid arthritis. Patient was recently exposed to her mother with Covid 19. Mother last day had had stated her home. She now complains of cough and shortness of breath. She denies having any fever. Patient presented to [facility] emergency center for evaluation. She is found to be afebrile, heart rate 90, blood pressure 142/76, pulse ox 81% on room air. WBC 18.8, d-dimer 0.63, blood sugar 171. AST 94, ALT 126. LDH 1234. CK 36. Troponin negative. C-reactive protein 186.8. ProBNP 128. COVID-19 nondetected. Chest x-ray reveals moderate to severe. She rounded interstitial infiltrates throughout the mid and lower lungs bilaterally consistent with Covid 19 pneumonia inhalers, Lovenox, consult requested with pulmonary medicine [facility]. 07/29: The patient is now requiring nonrebreather and high flow nasal cannula 15 L with pulse ox of 95%. She has been afebrile, heart rate 68, blood pressure 121/72. She has been started on Remdesivir, day 2/5. Blood cultures are showing no growth at 24 hours. She continues to have a cough and cough with deep breathing. She denies chest pain or abdominal pain. Lovenox increase to twice daily. CAT scan angiogram of the chest ordered to rule out pulmonary embolism. This revealed diffuse bilateral airspace disease correlate for diffuse pneumonia or ARDS. No central pulmonary embolism distal branches are limited. 07/30: Patient is on day #3/5 on Remdesivir. She is status post convalescent plasma transfusion. The patient was transitioned to AirVo yesterday currently pulse oxing in the mid 80s on FiO2 90, flow rate of 60. Patient is to be transferred to the intensive care unit. Patient is complaining of shortness of breath as well as chest feeling tight and dry. Patient denies having any nausea, vomiting, diarrhea or abdominal pain. She's been afebrile, heart rate 65, blood pressure 143/58. D-dimer 0.63. Legionella negative. Sputum culture is in process. WBC 15, hemoglobin 12.2, platelet count 309, lymphocytes 0.8. Electrolytes normal, creatinine 0.5. Total bilirubin 0.4, AST 63, ALT 68, alkal ine phosphatase 109. LDH 482. C-reactive protein 12.8. Troponin 1 negative. Mycoplasma testing is in process. Discussed CODE STATUS the patient wishes to BE a full code. 07/31: Patient is seen today in the intensive care unit. She is on both nonrebreather and high flow nasal cannula pulse oxing 90%. Repeat chest x-ray reveals correlate for pneumonia. No respiratory distress noted at the time of the valve. She has been afebrile, WBC 11.9, hemoglobin 11.3, d-dimer 0.6. Electrolytes and renal function normal. Ferritin 649. AST 47, ALT 62, LDH improving to 482. Pro-calcitonin 0.08. A ntibiotics discontinued. Covid 19 antibody test came back reactive. Mycoplasma pneumoniae IgG elevated and IgM low at 0.61. Patient is now transfused 2 units of convalescent plasma. She is on day 4/5 of Remdesivir. Dexamethasone was transitioned Solu-Medrol. REVIEW OF SYSTEMS Constitutional: No fever, no chills, no night sweats. No weight change. Reports weakness, reports fatigue. No daytime sleepiness. EENT: No headache. No blurred vision or double vision, no loss of vision. No loss of Hearing, no ringing in the ears, no dizziness. No nasal drainage or con gestion. No epistaxis. No sore throat. Lungs: Reports shortness of breath, Reports cough, no sputum production. No wheezing. Cardiovascular: Reports chest pain, no lower extremity edema. No palpitations. No paroxysmal nocturnal dyspnea. No orthopnea. No lightheadedness or dizziness. No syncopal episodes. Abdominal: No abdominal pain. No nausea, vomiting. No diarrhea. No constipation. No bloody or tarry stools. No loss of appetite. Genitourinary: No dysuria, increased frequency, urgency. No urinary retention. Musculoskeletal: No myalgias. No muscle weakness, no gait dysfunction, no frequent falls. No back pain. No neck pain. Integumentary: No wounds, no lesions. No rash or pruritus. Neurologic: No aphasia. No facial droop. No change in mentation. No head injury. No headache. No paralysis. No paresthesia. Psychiatric: No depression. No anxiety. Endocrine: Elevated blood sugars. PHYSICAL EXAMINATION Gen: This is a 64-year-old female. She appears to be in mild to moderate acute distress at the time of evaluation. HEENT: Head is atraumatic, normocephalic. Pupils equal, round. Sclerae is anicteric. NECK: Supple. No JVD. No lymphadenopathy. No thyromegaly. LUNGS: Fine crackles bilaterally throughout. No wheezing. Mild intercostal retractions. Mild accessory muscle usage. HEART: Regular rate and rhythm. No murmur. ABDOMEN: Soft. Bowel sounds are present. No masses. No tenderness. EXTREMITIES: No pedal edema. No calf tenderness. NEUROLOGICAL: Patient is awake, alert and oriented x3. Cranial nerves 2 through 12 are grossly intact. ASSESSMENT AND PLAN 1. Acute hypoxic respiratory failure secondary to Covid 19 pneumonia. Pulmonary medicine consult appreciated. Covid 19 antibody test positive. Patient on Remdesivir day 4/5, status post 2 unit convalescent plasma. Continue albuterol inhaler, vitamin supplements, dexamethasone transitioned to IV Solu- Medrol, Lovenox 40 mg twice daily. Influenza testing negative, Legionella testing negative. Continue oxygen therapy. CTA as above. Patient be transferred to the intensive care unit. She is currently on nonrebreather mask and high flow nasal cannula. 2. Acute bilateral pneumonia, Covid 19 pneumonia, possible bacterial pneumonia. 3. Elevated inflammatory markers consistent with Covid 19 pneumonia. 4. Rheumatoid arthritis. 5. Hypothyroidism. Continue levothyroxine 75 g daily. 6. GI prophylaxis. Protonix. 7. DVT prophylaxis. Lovenox. DISCHARGE PLAN Most likely return home. Impression and plan of care have been directed as dictated by the signing physician. Leanne Luna nurse practitioner acting as scribe for signing physician. Objective - Vital Signs Vital signs: Vital Signs Temp 98.2 F 07/31/20 04:00 Pulse 75 07/31/20 07:00 Resp 24 07/31/20 07:00 BP 144/75 07/31/20 07:00 Pulse Ox 91 L 07/31/20 08:48 Intake & Output 07/30/20 07/31/20 07/31/20 18:59 06:59 18:59 Intake Total 1506 1200 100 Output Total 500 2250 Balance 1006 -1050 100 Weight 70.9 kg Intake: IV 1300 1200 100 Azithromycin 500 mg In 250 Sodium Chloride 0.9% 250 ml @ 250 mls/hr IVPB DAILY [facility] Rx#:[id number] Remdesivir 100 mg In 250 Sodium Chloride 0.9% 250 ml @ 250 mls/hr IVPB DAILY@1200 [facility] Rx#: [id number] Sodium Chloride 0.9% 1, 800 1200 100 000 ml @ 100 mls/hr IV . Q10H [facility] Rx#:[id number] Blood Product 206 Ffp Pher Conval Covid19 206 Acda 1 Unit [id number] Output: Urine 500 2250 Other: Voiding Method Bedside Commode Bedside Commode - Labs CBC & Chem 7: 07/31/20 03:32 07/31/20 03:32 Labs: Abnormal Lab Results - Last 24 Hours (Table) 07/29/20 07/30/20 07/30/20 Range/Units 06:17 05:45 10:15 WBC (3.8-10.6) k/uL RBC (3.80-5.40) m/uL Hgb (11.4-16.0) gm/dL Hct (34.0-46.0) % Neutrophils # (1.3-7.7) k/uL Lymphocytes # (1.0-4.8) k/uL D-Dimer (<0.60) mg/L FEU BUN (7-17) mg/dL Creatinine (0.52-1.04) mg/dL Glucose (74-99) mg/dL POC Glucose (mg/dL) 185 H (75-99) mg/dL Calcium (8.4-10.2) mg/dL Ferritin (10.0-291.0) ng/mL AST (14-36) U/L ALT (4-34) U/L Lactate Dehydrogenase 482 H (120-246) U/L C-Reactive Protein 12.8 H (0.0-0.8) mg/dL Total Protein (6.3-8.2) g/dL Albumin (3.5-5.0) g/dL Mycoplasma pneumon IgG 1.63 H (<=0.90) INDEX 07/30/20 07/30/20 07/30/20 Range/Units 11:00 11:00 16:15 WBC 15.0 H (3.8-10.6) k/uL RBC (3.80-5.40) m/uL Hgb (11.4-16.0) gm/dL Hct (34.0-46.0) % Neutrophils # 13.5 H (1.3-7.7) k/uL Lymphocytes # 0.8 L (1.0-4.8) k/uL D-Dimer (<0.60) mg/L FEU BUN 20 H (7-17) mg/dL Creatinine 0.50 L (0.52-1.04) mg/dL Glucose 149 H (74-99) mg/dL POC Glucose (mg/dL) 227 H (75-99) mg/dL Calcium 8.2 L (8.4-10.2) mg/dL Ferritin (10.0-291.0) ng/mL AST 63 H (14-36) U/L ALT 68 H (4-34) U/L Lactate Dehydrogenase (120-246) U/L C-Reactive Protein (0.0-0.8) mg/dL Total Protein (6.3-8.2) g/dL Albumin 3.1 L (3.5-5.0) g/dL Mycoplasma pneumon IgG (<=0.90) INDEX 07/30/20 07/30/20 07/31/20 Range/Units 20:12 23:45 03:32 WBC 11.9 H (3.8-10.6) k/uL RBC 3.74 L (3.80-5.40) m/uL Hgb 11.3 L (11.4-16.0) gm/dL Hct 33.6 L (34.0-46.0) % Neutrophils # 10.4 H (1.3-7.7) k/uL Lymphocytes # (1.0-4.8) k/uL D-Dimer (<0.60) mg/L FEU BUN (7-17) mg/dL Creatinine (0.52-1.04) mg/dL Glucose (74-99) mg/dL POC Glucose (mg/dL) 190 H 136 H (75-99) mg/dL Calcium (8.4-10.2) mg/dL Ferritin (10.0-291.0) ng/mL AST (14-36) U/L ALT (4-34) U/L Lactate Dehydrogenase (120-246) U/L C-Reactive Protein (0.0-0.8) mg/dL Total Protein (6.3-8.2) g/dL Albumin (3.5-5.0) g/dL Mycoplasma pneumon IgG (<=0.90) INDEX 07/31/20 07/31/20 07/31/20 Range/Units 03:32 03:32 05:57 WBC (3.8-10.6) k/uL RBC (3.80-5.40) m/uL Hgb (11.4-16.0) gm/dL Hct (34.0-46.0) % Neutrophils # (1.3-7.7) k/uL Lymphocytes # (1.0-4.8) k/uL D-Dimer 0.60 H (<0.60) mg/L FEU BUN 22 H (7-17) mg/dL Creatinine (0.52-1.04) mg/dL Glucose 187 H (74-99) mg/dL POC Glucose (mg/dL) 194 H (75-99) mg/dL Calcium 8.2 L (8.4-10.2) mg/dL Ferritin 649.8 H (10.0-291.0) ng/mL AST 47 H (14-36) U/L ALT 62 H (4-34) U/L Lactate Dehydrogenase (120-246) U/L C-Reactive Protein 59.7 H (0.0-0.8) mg/dL Total Protein 6.2 L (6.3-8.2) g/dL Albumin 3.0 L (3.5-5.0) g/dL Mycoplasma pneumon IgG (<=0.90) INDEX Microbiology - Last 24 Hours (Table) 07/29/20 09:55 Gram Stain - Final Sputum Sputum Culture - Final 07/28/20 03:50 Blood Culture - Preliminary Blood No Growth after 72 hours
[2020-07-31] MEDS: ALPRAZolam 0.5 MG TAB PO PRN (20:31)
[2020-07-31 20:55] LABS: Glucose,Whole Blood 327 mg/dL (75-99)
[2020-08-01 04:33] LABS: Basophils # (A) 0.1 k/uL (0-0.2); Basophils % (A) 0 %; Eosinophils % (A) 0 %; HCT 35.2 % (34.0-46.0); HGB 11.6 gm/dL (11.4-16.0); Lymphocytes # (A) 0.9 k/uL (1.0-4.8); Lymphocytes % (A) 5 %; MCH 29.5 pg (25.0-35.0); MCV 89.6 fL (80.0-100.0); Monocytes # (A) 0.8 k/uL (0-1.0); Monocytes % (A) 4 %; Neutrophils # (A) 15.5 k/uL (1.3-7.7); Neutrophils % (A) 89 %; Platelet Count 380 k/uL (150-450); RBC 3.93 m/uL (3.80-5.40); RDW 12.9 % (11.5-15.5); WBC 17.5 k/uL (3.8-10.6)
[2020-08-01 04:54] LABS: ALT 59 U/L (4-34); AST 40 U/L (14-36); African American GFR (CKD) >90 (>60 ml/min/1.73 sqM); Alkaline Phosphatase 111 U/L (38-126); Anion Gap 4 mmol/L; Blood Urea Nitrogen 19 mg/dL (7-17); C Reactive Protein 40.8 mg/L (<10.0); Calcium 8.2 mg/dL (8.4-10.2); Carbon Dioxide 27 mmol/L (22-30); Chloride 105 mmol/L (98-107); Glucose 232 mg/dL (74-99); Non-African American GFR(CKD) >90 (>60 ml/min/1.73 sqM); Sodium 136 mmol/L (137-145); Total Bilirubin 0.4 mg/dL (0.2-1.3); Total Protein 6.1 g/dL (6.3-8.2)
[2020-08-01] MEDS: PANTOPRAZOLE 40 MG TABLET PO SCH (05:32)
[2020-08-01] MEDS: ALPRAZolam 0.5 MG TAB PO PRN (05:32)
[2020-08-01] MEDS: methylPREDNISolone SOD SUCCI 125 MG/2 ML VIAL IV SCH ×3 (05:33→17:26)
[2020-08-01] MEDS: LEVOTHYROXINE 75 MCG TAB PO SCH (05:33)
[2020-08-01 06:03] LABS: Glucose,Whole Blood 228 mg/dL (75-99)
[2020-08-01] MEDS: INSULIN ASPART (NovoLOG) 100 UNIT/ML VIAL SQ SCH ×4 (06:11→20:48)
[2020-08-01] MEDS: ALBUTEROL HFA INHALER INHALATION SCH ×4 (07:24→21:00)
[2020-08-01] MEDS: ASCORBIC ACID 500 MG TAB PO SCH (08:52)
[2020-08-01] MEDS: ZINC SULFATE 220 MG CAP PO SCH (08:53)
[2020-08-01] MEDS: NYSTATIN 100,000 UNIT/ML SUSP 500,000 UNIT/5 ML CUP PO SCH ×4 (08:53→20:31)
[2020-08-01] MEDS: ENOXAPARIN 40 MG/0.4 ML SYRINGE SQ SCH ×2 (08:53→20:31)
[2020-08-01] MEDS: CHOLECALCIFEROL 1,000 UNIT TAB PO SCH (09:30)
--- NOTE | 2020-08-01 10:20 | XR ---
EXAMINATION TYPE: XR chest 1V portable DATE OF EXAM: 08/01/2020 COMPARISON: Prior chest x-ray 07/31/2020 HISTORY: Covid pneumonia TECHNIQUE: Single frontal view of the chest is obtained. FINDINGS: Bilateral groundglass opacity present within the lungs similar to prior exam. Patient is r otated and exam is expiratory. Cardiac silhouette is similar appearance. There are overlying cardiac leads. No evident pneumothorax or pleural effusion. IMPRESSION: Findings consistent with pneumonia, there may be slight interval improvement in aeration accounting for differences in technique
[2020-08-01 10:24] LABS: Ferritin 514.5 ng/mL (10.0-291.0)
[2020-08-01] MEDS: SODIUM CHLORIDE 0.9% 1,000 ML IV SCH ×2 (10:44→13:00)
--- NOTE | 2020-08-01 10:53 | P.PN ---
Subjective Progress Note Date: 08/01/20 Principal diagnosis: COVID 19 pneumonitis This is a 64-year-old female patient of Dr. Lamin Mcdonough, who presented to the emergency department on July 2020 with one week history of fatigue, body aches, chills, worsening shortness of breath with multiple family members not feeling well with similar symptoms. Apparently patient tested for coronavirus and was found to be negative, in view of significant shortness of breath and hypoxemia with a pulse ox in the low 80s, EMS was called. Of note patient's mother recently passed in this hospital of COVID 19 related complications. Patient's daughter is also hospitalized with COVID 19 symptoms. Chest x-ray showed [id number] patchy rounded interstitial infiltrates throughout mid to lower lungs consistent with COVID 19 pneumonia. White blood cell count is 18.8, hemoglobin is 13, neutrophil count is 16.6, lymphocyte count was 1.4, d-dimer 0.63, electrolytes are within normal limits, BUN is 19 creatin ine 0.5, lactic acid is 1.2, repeat COVID 19 rapid test in the emergency department was again negative. Patient's creatinine 8 L of oxygen pulse ox is 90-95%. The patient is seen today 07/29/2020 in follow-up on the regular medical floor. She is currently awake and alert and she is in mild respiratory distress. Her oxygen requirements have increased overnight. She is currently on 15 L high fl ow nasal cannula initially on a nonrebreather mask. She's currently afebrile. Computed tomography scan of the chest reveals diffuse bilateral airspace disease consistent with CoVID 19 pneumonitis. No evidence of pulmonary embolism. She did receive 1 unit of convalescent plasma. Blood and sputum cultures are pending. She is currently on ceftriaxone and azithromycin along with dexamethasone, Lovenox, vitamin supplements. This is day #2 of Remdesivir. A shunt was reevaluated today on 07/30/2020, patient took a downhill course clinically this morning, continued to desaturate, required higher FiO2, and she is now on 60 L high flow, and 90% FiO2 on airvo. Patient was noted to be dyspneic by the nurse taking care of her. Her oxygen requirement jumped up significantly, hence I recommended transferring the patient to the ICU. Patient is on remdesivir, day #3, and she received 1 unit of convalescent plasma. Patient remains on antibiotics empirically in the form of Rocephin and Zithrom ax, she is also on dexamethasone, Lovenox, and vitamin supplements. On 07/31/2020 patient seen in follow-up in the intensive care unit, she is awake and alert, still requiring quite a bit of oxygen, she is on high flow per Airvo at 60 L and FiO2 of 90% in addition to 100% nonrebreather mask her pulse ox is ranging between 88-90-91%, but seems to be in no acute distress. Blood pressure stable, patient has been afebrile, she is short of breath with any exertion, no chest discomfort. Today's chest x-ray has been reviewed showing bilateral patchy airspace disease persistence, low lung volumes and patient is rotated. Today's labs have been reviewed, showing white blood cell count of 11.9, hem oglobin is 11.3, d-dimer is 0.60, electrolytes and renal profile are unremarkable. Ferritin level is 649, liver enzymes are improving, AST is down to 47, ALT 62, LDH was improving from admission, and was down to 482 on yesterday's labs, CRP is up a bit from yesterday but overall is down compared to admission, pro-calcitonin level is negative at 0.08, patient's Covid 19 antibiotic test came back reactive confirming suspicion for Covid 19 related pneumonitis, Legionella urine antigen was negative, and mycoplasma pneumonia IgG came back elevated and mycoplasma pneumonia IgM was low at 0.61, suggesting exposure to mycoplasma pneumonia infection in the past but no current infection. Blood and sputum cultures have been negative. Patient is status post transfusion with 2 units of convalescent plasma and patient is on day 3 of Remdesivir treatment, she is on high-dose IV steroids with Solu-Medrol 40 mg every 6 hours and Lovenox at 40 mg twice daily On 08/01/2020 patient seen in follow-up in the intensive care unit, she remains on Airvo a 60 L and FiO2 of 90% in addition to 100% nonrebreather mask, and patient still quite hypoxic, and when she removes the nonrebreather mask for mealtimes patient quickly desats down to 79% and has to be placed on the additional oxygen until she recovers her saturation. Currently O2 sat is anywhere between 83 to 90%, afebrile, patient is dyspneic with any little exertion, but appears to be in no acute distress, no completes of chest pain, mild cough, chest x-ray today shows bilateral groundglass opacities, similar to previous exam, with possibly slight interval improvement in aeration. Patient is on day 4 of Remdesivir treatment, she status post revision with 2 units of convalescent immunoglobulin for Covid 19 and she remains on IV steroids with Solu-Medrol 80 mg every 6 hours in addition to vitamins, C, D and zinc, anticoagulation is with Lovenox 40 mg every 12 hours, and d-dimer is currently at 0.64, serum labs have been reviewed, showing white blood cell count 17.5, electrolytes and renal profile are unremarkable. Objective - Vital Signs Vital signs: Vital Signs Temp 98.7 F 08/01/20 08:00 Pulse 79 08/01/20 10:00 Resp 23 08/01/20 10:00 BP 101/64 08/01/20 10:00 Pulse Ox 87 L 08/01/20 10:00 Intake & Output 07/31/20 08/01/20 08/01/20 18:59 06:59 18:59 Intake Total 1350 1200 500 Output Total 800 1900 Balance 550 -700 500 Weight 71.4 kg Intake: IV 1150 1200 400 Remdesivir 100 mg In 250 Sodium Chloride 0.9% 250 ml @ 250 mls/hr IVPB DAILY@1200 [facility] Rx#: [id number] Sodium Chloride 0.9% 1, 900 1200 400 000 ml @ 100 mls/hr IV . Q10H [facility] Rx#:[id number] Oral 200 100 Output: Urine 800 1900 Other: Voiding Method Bedside Commode Bedside Commode Bedside Commode # Voids 1 # Bowel Movements 1 - Exam GENERAL EXAM: Alert, oriented, 64-year-old female on Airvo at 60 l/min, and Fio2 90%, 100% NRB comfortable in no apparent distress. HEAD: Normocephalic/atraumatic. EYES: Normal reaction of pupils, equal size. Conjunctiva pink, sclera white. NOSE: Clear with pink turbinates. THROAT: No erythema or exudates. NECK: No masses, no JVD, no thyroid enlargement, no adenopathy. CHEST: No chest wall deformity. Symmetrical expansion. LUNGS: Equal air entry with no crackles, wheeze, rhonchi or dullness. CVS: Regular rate and rhythm, normal S1 and S2, no gallops, no murmurs, no rubs ABDOMEN: Soft, nontender. No hepatosplenomegaly, normal bowel sounds, no guarding or rigidity. EXTREMITIES: No clubbing, no edema, no cyanosis, 2+ pulses and upper and lower extremities. MUSCULOSKELETAL: Muscle strength and tone normal. SPINE: No scoliosis or deformity SKIN: No rashes CENTRAL NERVOUS SYSTEM: Alert and oriented -3. No focal deficits, tone is normal in all 4 extremities. PSYCHIATRIC: Alert and oriented -3. Appropriate affect. Intact judgment and insight. - Labs CBC & Chem 7: 08/01/20 04:00 08/01/20 04:00 Labs: Abnormal Lab Results - Last 24 Hours (Table) 07/31/20 07/31/20 08/01/20 Range/Units 12:02 20:53 04:00 WBC 17.5 H (3.8-10.6) k/uL Neutrophils # 15.5 H (1.3-7.7) k/uL Lymphocytes # 0.9 L (1.0-4.8) k/uL D-Dimer (<0.60) mg/L FEU Sodium (137-145) mmol/L BUN (7-17) mg/dL Glucose (74-99) mg/dL POC Glucose (mg/dL) 211 H 327 H (75-99) mg/dL Calcium (8.4-10.2) mg/dL Ferritin (10.0-291.0) ng/mL AST (14-36) U/L ALT (4-34) U/L C-Reactive Protein (<10.0) mg/L Total Protein (6.3-8.2) g/dL Albumin (3.5-5.0) g/dL 08/01/20 08/01/20 08/01/20 Range/Units 04:00 04:00 06:01 WBC (3.8-10.6) k/uL Neutrophils # (1.3-7.7) k/uL Lymphocytes # (1.0-4.8) k/uL D-Dimer 0.64 H (<0.60) mg/L FEU Sodium 136 L (137-145) mmol/L BUN 19 H (7-17) mg/dL Glucose 232 H (74-99) mg/dL POC Glucose (mg/dL) 228 H (75-99) mg/dL Calcium 8.2 L (8.4-10.2) mg/dL Ferritin 514.5 H (10.0-291.0) ng/mL AST 40 H (14-36) U/L ALT 59 H (4-34) U/L C-Reactive Protein 40.8 H (<10.0) mg/L Total Protein 6.1 L (6.3-8.2) g/dL Albumin 3.0 L (3.5-5.0) g/dL Microbiology - Last 24 Hours (Table) 07/28/20 03:50 Blood Culture - Preliminary Blood No Growth after 96 hours 07/29/20 09:55 Gram Stain - Final Sputum Sputum Culture - Final Assessment and Plan Plan: Assessment: #1. Acute hypoxic respiratory failure, related to COVID 19 related pneumonitis, patient had 3 negative COVID 19 rapid test, however the diagnosis was confirmed with reactive antibiotic test, patient was initiated on Remdesivir on 07/28/2020 #2. Possibility of bacterial pneumonia ruled out based on negative pro- calcitonin, negative urine Legionella antigen, and negative mycoplasma IgM #3. History of rheumatoid arthritis, at this time it's unknown if patient has any chronic parenchymal changes from underlying history of rheumatoid arthritis #4. Hypothyroidism #5. Increased inflammatory markers including LDH, and CRP #6. Increased AST and ALT related to viral pneumonia secondary to COVID 19, improving Plan: Continue current medical treatment, still requiring high flow oxygen, easily desaturates and becomes quite dyspneic with any exertion. No acute distress, today's chest x-ray has been reviewed showing no significant improvement from previous exam, continue current dose Lovenox, we'll continue to follow inflammatory markers, d-dimer, continue to closely monitor in the intensive care unit, no fever or chills, we'll discontinue the empiric antibiotics, patient ruled out for bacterial pneumonia. Prognosis is quite guarded, patient remains on Remdesivir, and she has received 2 units IV immunoglobulin for COVID 19. We'll continue to closely monitor in the intensive care unit I performed a history & physical examination of the patient and discussed their management with my nurse practitioner, Lilly Green. I reviewed the nurse practitioner's note and agree with the documented findings and plan of care. Lung sounds are positive for diminished breath soudns, and yusuf crackles. The findings and the impression was discussed with the patient. I attest to the documentation by the nurse practitioner. Time with Patient: Greater than 30
[2020-08-01 11:42] LABS: Glucose,Whole Blood 196 mg/dL (75-99)
[2020-08-01] MEDS: REMDESIVIR 100 MG in SODIUM CHLORIDE 0.9% 250 ML IVPB SCH (11:54)
--- NOTE | 2020-08-01 13:39 | P.PN ---
Subjective Progress Note Date: 08/01/20 HISTORY OF PRESENT ILLNESS This is a 64-year-old female patient of Dr. Mcdonough with a past medical history of hypothyroidism, rheumatoid arthritis. Patient was recently exposed to her mother with Covid 19. Mother last day had had stated her home. She now complains of cough and shortness of breath. She denies having any fever. Patient presented to [facility] emergency center for evaluation. She is found to be afebrile, heart rate 90, blood pressure 142/76, pulse ox 81% on room air. WBC 18.8, d-dimer 0.63, blood sugar 171. AST 94, ALT 126. LDH 1234. CK 36. Troponin negative. C-reactive protein 186.8. ProBNP 128. COVID-19 nondetected. Chest x-ray reveals moderate to severe. She rounded interstitial infiltrates throughout the mid and lower lungs bilaterally consistent with Covid 19 pneumonia inhalers, Lovenox, consult requested with pulmonary medicine [facility]. 07/29: The patient is now requiring nonrebreather and high flow nasal cannula 15 L with pulse ox of 95%. She has been afebrile, heart rate 68, blood pressure 121/72. She has been started on Remdesivir, day 2/5. Blood cultures are showing no growth at 24 hours. She continues to have a cough and cough with deep breathing. She denies chest pain or abdominal pain. Lovenox increase to twice daily. CAT scan angiogram of the chest ordered to rule out pulmonary embolism. This revealed diffuse bilateral airspace disease correlate for diffuse pneumonia or ARDS. No central pulmonary embolism distal branches are limited. 07/30: Patient is on day #3/5 on Remdesivir. She is status post convalescent plasma transfusion. The patient was transitioned to AirVo yesterday currently pulse oxing in the mid 80s on FiO2 90, flow rate of 60. Patient is to be transferred to the intensive care unit. Patient is complaining of shortness of breath as well as chest feeling tight and dry. Patient denies having any nausea, vomiting, diarrhea or abdominal pain. She's been afebrile, heart rate 65, blood pressure 143/58. D-dimer 0.63. Legionella negative. Sputum culture is in process. WBC 15, hemoglobin 12.2, platelet count 309, lymphocytes 0.8. Electrolytes normal, creatinine 0.5. Total bilirubin 0.4, AST 63, ALT 68, alkal ine phosphatase 109. LDH 482. C-reactive protein 12.8. Troponin 1 negative. Mycoplasma testing is in process. Discussed CODE STATUS the patient wishes to BE a full code. 07/31: Patient is seen today in the intensive care unit. She is on both nonrebreather and high flow nasal cannula pulse oxing 90%. Repeat chest x-ray reveals correlate for pneumonia. No respiratory distress noted at the time of the valve. She has been afebrile WBC 11.9, hemoglobin 11.3, d-dimer 0.6. Electrolytes and renal function normal. Ferritin 649. AST 47, ALT 62, LDH improving to 482. Pro-calcitonin 0.08. Antibiotics discontinued. Covid 19 antibody test came back reactive. Mycoplasma pneumoniae IgG elevated and IgM low at 0.61. Patient is now transfused 2 units of convalescent plasma. She is on day 4/5 of Remdesivir. Dexamethasone was transitioned Solu-Medrol. 08/01: Patient remains in the intensive care unit. She is currently on airflow and a nonrebreather. Pulse ox drops into the 70s when she tries to eat with [employer]rav[employer] 1 only. At rest she can maintain pulse ox of 90%. She has been afebrile, heart rate 72, respiratory rate 32, pulse ox 89%. WBC 17.5, lymphocytes are 0.9. D-dimer 0.64. Creatinine 0.54. Blood sugars running in the 200s up to 327. Total bilirubin 0.4, AST 40, ALT 59, alkaline phosphatase 111. Peritoneal 514.5. C-reactive protein 40.8. Sputum culture finalized with normal ozzy. Patient's son Henry ([phone]) is requesting the patient be transferred to [facility]. Patient herself will do what ever family wishes for her. Patient is not progressing but no worsening either be stable today. Anticipate the bone views transfer. auto care center manager is working with [place] at this time. Patient is on Remdesivir day #5/5. REVIEW OF SYSTEMS Constitutional: No fever, no chills, no night sweats. No weight change. Reports weakness, reports fatigue. No daytime sleepiness. EENT: No headache. No blurred vision or double vision, no loss of vision. No loss of Hearing, no ringing in the ears, no dizziness. No nasal drainage or congestion. No epistaxis. No sore throat. Lungs: Reports continued shortness of breath, Reports cough, no sputum production. No wheezing. Cardiovascular: Reports chest pain, no lower extremity edema. No palpitations. No paroxysmal nocturnal dyspnea. No orthopnea. No lightheadedness or dizzin ess. No syncopal episodes. Abdominal: No abdominal pain. No nausea, vomiting. No diarrhea. No co nstipation. No bloody or tarry stools. No loss of appetite. Genitourinary: No dysuria, increased frequency, urgency. No urinary retention. Musculoskeletal: No myalgias. No muscle weakness, no gait dysfunction, no frequent falls. No back pain. No neck pain. Integumentary: No wounds, no lesions. No rash or pruritus. Neurologic: No aphasia. No facial droop. No change in mentation. No head injury. No headache. No paralysis. No paresthesia. Psychiatric: No depression. No anxiety. Endocrine: Elevated blood sugars. PHYSICAL EXAMINATION Gen: This is a 64-year-old female. She appears to be in mild distress at rest. HEENT: Head is atraumatic, normocephalic. Pupils equal, round. Sclerae is anicteric. NECK: Supple. No JVD. No lymphadenopathy. No thyromegaly. LUNGS: Fine crackles bilaterally throughout. No wheezing. Mild intercostal retractions. Mild accessory muscle usage. HEART: Regular rate and rhythm. No murmur. ABDOMEN: Soft. Bowel sounds are present. No masses. No tenderness. EXTREMITIES: No pedal edema. No calf tenderness. NEUROLOGICAL: Patient is awake, alert and oriented x3. Cranial nerves 2 through 12 are grossly intact. ASSESSMENT AND PLAN 1. Acute hypoxic respiratory failure secondary to Covid 19 pneumonia. Pulmonary medicine consult appreciated. Covid 19 antibody test positive. Patient on Remdesivir day 11/22, status post 2 unit convalescent plasma. Continue albuterol inhaler, vitamin supplements, dexamethasone transitioned to IV Solu- Medrol, Lovenox 40 mg twice daily. Continue oxygen therapy. She is currently on AirVo and on rebreather. 2. Acute bilateral pneumonia, Covid 19 pneumonia, possible bacterial pneumonia. 3. Elevated inflammatory markers consistent with Covid 19 pneumonia. 4. Rheumatoid arthritis. 5. Hypothyroidism. Continue levothyroxine 75 g daily. 6. GI prophylaxis. Protonix. 7. DVT prophylaxis. Lovenox. DISCHARGE PLAN Most likely return home. Possible transfer to [facility]. auto care center manager will make arrangements if accepted. Impression and plan of care have been directed as dictated by the signing physician. Leanne Luna nurse practitioner acting as scribe for signing physician. Objective - Vital Signs Vital signs: Vital Signs Temp 98.8 F 08/01/20 04:00 Pulse 78 08/01/20 08:00 Resp 26 H 08/01/20 08:00 BP 138/69 08/01/20 08:00 Pulse Ox 83 L 08/01/20 08:00 Intake & Output 07/31/20 08/01/20 08/01/20 18:59 06:59 18:59 Intake Total 1350 1200 300 Output Total 800 1900 Balance 550 -700 300 Weight 71.4 kg Intake: IV 1150 1200 200 Remdesivir 100 mg In 250 Sodium Chloride 0.9% 250 ml @ 250 mls/hr IVPB DAILY@1200 LOAN Rx#: [id number] Sodium Chloride 0.9% 1, 900 1200 200 000 ml @ 100 mls/hr IV . Q10H LOAN Rx#:[id number] Oral 200 100 Output: Urine 800 1900 Other: Voiding Method Bedside Commode Bedside Commode # Voids 1 # Bowel Movements 1 - Labs CBC & Chem 7: 08/01/20 04:00 08/01/20 04:00 Labs: Abnormal Lab Results - Last 24 Hours (Table) 07/31/20 07/31/20 07/31/20 Range/Units 03:32 12:02 20:53 WBC (3.8-10.6) k/uL Neutrophils # (1.3-7.7) k/uL Lymphocytes # (1.0-4.8) k/uL D-Dimer (<0.60) mg/L FEU Sodium (137-145) mmol/L BUN (7-17) mg/dL Glucose (74-99) mg/dL POC Glucose (mg/dL) 211 H 327 H (75-99) mg/dL Calcium (8.4-10.2) mg/dL Ferritin 649.8 H (10.0-291.0) ng/mL AST (14-36) U/L ALT (4-34) U/L C-Reactive Protein (<10.0) mg/L Total Protein (6.3-8.2) g/dL Albumin (3.5-5.0) g/dL 08/01/20 08/01/20 08/01/20 Range/Units 04:00 04:00 04:00 WBC 17.5 H (3.8-10.6) k/uL Neutrophils # 15.5 H (1.3-7.7) k/uL Lymphocytes # 0.9 L (1.0-4.8) k/uL D-Dimer 0.64 H (<0.60) mg/L FEU Sodium 136 L (137-145) mmol/L BUN 19 H (7-17) mg/dL Glucose 232 H (74-99) mg/dL POC Glucose (mg/dL) (75-99) mg/dL Calcium 8.2 L (8.4-10.2) mg/dL Ferritin (10.0-291.0) ng/mL AST 40 H (14-36) U/L ALT 59 H (4-34) U/L C-Reactive Protein 40.8 H (<10.0) mg/L Total Protein 6.1 L (6.3-8.2) g/dL Albumin 3.0 L (3.5-5.0) g/dL 08/01/20 Range/Units 06:01 WBC (3.8-10.6) k/uL Neutrophils # (1.3-7.7) k/uL Lymphocytes # (1.0-4.8) k/uL D-Dimer (<0.60) mg/L FEU Sodium (137-145) mmol/L BUN (7-17) mg/dL Glucose (74-99) mg/dL POC Glucose (mg/dL) 228 H (75-99) mg/dL Calcium (8.4-10.2) mg/dL Ferritin (10.0-291.0) ng/mL AST (14-36) U/L ALT (4-34) U/L C-Reactive Protein (<10.0) mg/L Total Protein (6.3-8.2) g/dL Albumin (3.5-5.0) g/dL Microbiology - Last 24 Hours (Table) 07/28/20 03:50 Blood Culture - Preliminary Blood No Growth after 96 hours 07/29/20 09:55 Gram Stain - Final Sputum Sputum Culture - Final
[2020-08-01] MEDS ORDERED: SODIUM CHLORIDE 0.65% NASAL SPRAY 44 ML BTL NASAL PRN (15:23)
[2020-08-01 17:12] LABS: Glucose,Whole Blood 240 mg/dL (75-99)
[2020-08-01 20:42] LABS: Glucose,Whole Blood 249 mg/dL (75-99)
[2020-08-02] MEDS: methylPREDNISolone SOD SUCCI 125 MG/2 ML VIAL IV SCH ×4 (00:22→18:09)
[2020-08-02] MEDS: SODIUM CHLORIDE 0.9% 1,000 ML IV SCH ×2 (00:31→09:37)
[2020-08-02 04:26] LABS: Basophils # (A) 0.1 k/uL (0-0.2); Basophils % (A) 0 %; Eosinophils % (A) 0 %; HCT 33.8 % (34.0-46.0); HGB 11.5 gm/dL (11.4-16.0); Lymphocytes # (A) 0.8 k/uL (1.0-4.8); Lymphocytes % (A) 5 %; MCH 30.1 pg (25.0-35.0); MCV 88.5 fL (80.0-100.0); Mean Platelet Volume 7.4; Monocytes # (A) 0.8 k/uL (0-1.0); Monocytes % (A) 5 %; Neutrophils # (A) 15.4 k/uL (1.3-7.7); Neutrophils % (A) 90 %; Platelet Count 383 k/uL (150-450); RBC 3.83 m/uL (3.80-5.40); RDW 12.6 % (11.5-15.5); WBC 17.2 k/uL (3.8-10.6)
[2020-08-02 04:42] LABS: ALT 54 U/L (4-34); AST 33 U/L (14-36); African American GFR (CKD) >90 (>60 ml/min/1.73 sqM); Albumin 2.7 g/dL (3.5-5.0); Alkaline Phosphatase 96 U/L (38-126); Anion Gap 3 mmol/L; Blood Urea Nitrogen 19 mg/dL (7-17); C Reactive Protein 24.9 mg/L (<10.0); Carbon Dioxide 29 mmol/L (22-30); Chloride 105 mmol/L (98-107); Glucose 185 mg/dL (74-99); Non-African American GFR(CKD) >90 (>60 ml/min/1.73 sqM); Potassium 3.5 mmol/L (3.5-5.1); Sodium 137 mmol/L (137-145); Total Bilirubin 0.4 mg/dL (0.2-1.3); Total Protein 5.7 g/dL (6.3-8.2)
[2020-08-02] MEDS: HYDROcodone/APAP 5-325MG 1 EACH TAB PO PRN ×2 (05:20→21:08)
[2020-08-02] MEDS: BENZOCAINE/MENTHOL LOZENG 1 EACH LOZENGE MUCOUS MEM PRN ×2 (05:21→21:08)
[2020-08-02] MEDS: INSULIN ASPART (NovoLOG) 100 UNIT/ML VIAL SQ SCH ×7 (06:46→21:09)
[2020-08-02] MEDS: LEVOTHYROXINE 75 MCG TAB PO SCH (06:46)
[2020-08-02] MEDS: PANTOPRAZOLE 40 MG TABLET PO SCH (06:46)
[2020-08-02] MEDS: ALBUTEROL HFA INHALER INHALATION SCH ×4 (07:52→20:50)
[2020-08-02] MEDS: ASCORBIC ACID 500 MG TAB PO SCH (08:27)
[2020-08-02] MEDS: ZINC SULFATE 220 MG CAP PO SCH (08:27)
[2020-08-02] MEDS: NYSTATIN 100,000 UNIT/ML SUSP 500,000 UNIT/5 ML CUP PO SCH ×4 (08:27→21:08)
[2020-08-02] MEDS: POTASSIUM CHLORIDE ER 20 MEQ TAB.ER PO SCH ×2 (08:27→09:19)
[2020-08-02] MEDS: CHOLECALCIFEROL 1,000 UNIT TAB PO SCH (08:27)
[2020-08-02] MEDS: ENOXAPARIN 40 MG/0.4 ML SYRINGE SQ SCH ×2 (08:28→21:08)
--- NOTE | 2020-08-02 09:07 | XR ---
EXAMINATION TYPE: XR chest 1V portable DATE OF EXAM: 08/02/2020 COMPARISON: 08/01/2020 HISTORY: Cough TECHNIQUE: Single frontal view of the chest is obtained. FINDINGS: Bilateral groundglass opacity present within the lungs similar to prior exam. Patient is r otated and exam is expiratory. Cardiac silhouette is similar appearance. There are overlying cardiac leads. No evident pneumothorax or pleural effusion. IMPRESSION: 1. Bilateral patchy infiltrate stable correlate for pneumonia.
--- NOTE | 2020-08-02 10:09 | P.PN ---
Subjective Progress Note Date: 08/02/20 Principal diagnosis: COVID 19 pneumonitis This is a 64-year-old female patient of Dr. Lamin Mcdonough, who presented to the emergency department on July 2020 with one week history of fatigue, body aches, chills, worsening shortness of breath with multiple family members not feeling well with similar symptoms. Apparently patient tested for coronavirus and was found to be negative, in view of significant shortness of breath and hypoxemia with a pulse ox in the low 80s, EMS was called. Of note patient's mother recently passed in this hospital of COVID 19 related complications. Patient's daughter is also hospitalized with COVID 19 symptoms. Chest x-ray showed [id number] patchy rounded interstitial infiltrates throughout mid to lower lungs consistent with COVID 19 pneumonia. White blood cell count is 18.8, hemoglobin is 13, neutrophil count is 16.6, lymphocyte count was 1.4, d-dimer 0.63, electrolytes are within normal limits, BUN is 19 creatin ine 0.5, lactic acid is 1.2, repeat COVID 19 rapid test in the emergency department was again negative. Patient's creatinine 8 L of oxygen pulse ox is 90-95%. The patient is seen today 07/29/2020 in follow-up on the regular medical floor. She is currently awake and alert and she is in mild respiratory distress. Her oxygen requirements have increased overnight. She is currently on 15 L high fl ow nasal cannula initially on a nonrebreather mask. She's currently afebrile. Computed tomography scan of the chest reveals diffuse bilateral airspace disease consistent with CoVID 19 pneumonitis. No evidence of pulmonary embolism. She did receive 1 unit of convalescent plasma. Blood and sputum cultures are pending. She is currently on ceftriaxone and azithromycin along with dexamethasone, Lovenox, vitamin supplements. This is day #2 of Remdesivir. A shunt was reevaluated today on 07/30/2020, patient took a downhill course clinically this morning, continued to desaturate, required higher FiO2, and she is now on 60 L high flow, and 90% FiO2 on airvo. Patient was noted to be dyspneic by the nurse taking care of her. Her oxygen requirement jumped up significantly, hence I recommended transferring the patient to the ICU. Patient is on remdesivir, day #3, and she received 1 unit of convalescent plasma. Patient remains on antibiotics empirically in the form of Rocephin and Zithrom ax, she is also on dexamethasone, Lovenox, and vitamin supplements. On 07/31/2020 patient seen in follow-up in the intensive care unit, she is awake and alert, still requiring quite a bit of oxygen, she is on high flow per Airvo at 60 L and FiO2 of 90% in addition to 100% nonrebreather mask her pulse ox is ranging between 88-90-91%, but seems to be in no acute distress. Blood pressure stable, patient has been afebrile, she is short of breath with any exertion, no chest discomfort. Today's chest x-ray has been reviewed showing bilateral patchy airspace disease persistence, low lung volumes and patient is rotated. Today's labs have been reviewed, showing white blood cell count of 11.9, hem oglobin is 11.3, d-dimer is 0.60, electrolytes and renal profile are unremarkable. Ferritin level is 649, liver enzymes are improving, AST is down to 47, ALT 62, LDH was improving from admission, and was down to 482 on yesterday's labs, CRP is up a bit from yesterday but overall is down compared to admission, pro-calcitonin level is negative at 0.08, patient's Covid 19 antibiotic test came back reactive confirming suspicion for Covid 19 related pneumonitis, Legionella urine antigen was negative, and mycoplasma pneumonia IgG came back elevated and mycoplasma pneumonia IgM was low at 0.61, suggesting exposure to mycoplasma pneumonia infection in the past but no current infection. Blood and sputum cultures have been negative. Patient is status post transfusion with 2 units of convalescent plasma and patient is on day 3 of Remdesivir treatment, she is on high-dose IV steroids with Solu-Medrol 40 mg every 6 hours and Lovenox at 40 mg twice daily On 08/01/2020 patient seen in follow-up in the intensive care unit, she remains on Airvo a 60 L and FiO2 of 90% in addition to 100% nonrebreather mask, and patient still quite hypoxic, and when she removes the nonrebreather mask for mealtimes patient quickly desats down to 79% and has to be placed on the additional oxygen until she recovers her saturation. Currently O2 sat is anywhere between 83 to 90%, afebrile, patient is dyspneic with any little exertion, but appears to be in no acute distress, no completes of chest pain, mild cough, chest x-ray today shows bilateral groundglass opacities, similar to previous exam, with possibly slight interval improvement in aeration. Patient is on day 4 of Remdesivir treatment, she status post revision with 2 units of convalescent immunoglobulin for Covid 19 and she remains on IV steroids with Solu-Medrol 80 mg every 6 hours in addition to vitamins, C, D and zinc, anticoagulation is with Lovenox 40 mg every 12 hours, and d-dimer is currently at 0.64, serum labs have been reviewed, showing white blood cell count 17.5, electrolytes and renal profile are unremarkable. On 08/02/2020 patient seen in follow-up in the intensive care unit, she remains on Airvo at 60 L at FiO2 of 90% in addition to 100% nonrebreather mask, however her sats noted to be better today, and during meals patient's O2 sat did not drop as low, patient is able tolerate breaks from the nonrebreather mask a levar le better. Breathing little better, she's been afebrile, hemodynamically stable, chest x-ray shows bilateral patchy infiltrates, stable in appearance. Patient completed her Remdesivir treatment, she did receive 2 units of convalescent plasma, she remains on IV steroids at 60 mg every 6 hours, sharon mins, and Lovenox at 40 mg every 12 hours. Today's labs have been reviewed, showing blood cell count 17.2, hemoglobin is 11.5, lymphopenia with the lymphocyte count of 0.8, neutrophils at 15.4, d-dimer 0.7, electrolytes are within normal limits, BUN is 19 and creatinine 0.58, d-dimer today is 0.77, CRP is 24.9, no LDH today, patient did receive a few days of antibiotics which were discontinued Objective - Vital Signs Vital signs: Vital Signs Temp 98.1 F 08/02/20 08:00 Pulse 71 08/02/20 10:00 Resp 28 H 08/02/20 10:00 BP 152/78 08/02/20 10:00 Pulse Ox 88 L 08/02/20 10:00 Intake & Output 08/01/20 08/02/20 08/02/20 18:59 06:59 18:59 Intake Total 2050 1400 650 Output Total 1800 1600 Balance 250 -200 650 Weight 69.7 kg Intake: IV 1450 1200 400 Remdesivir 100 mg In 250 Sodium Chloride 0.9% 250 ml @ 250 mls/hr IVPB DAILY@1200 LOAN Rx#: [id number] Sodium Chloride 0.9% 1, 1200 1200 400 000 ml @ 100 mls/hr IV . Q10H LOAN Rx#:[id number] Oral 300 200 250 Blood Product 300 Output: Urine 1800 1600 Other: Voiding Method Bedside Commode Bedside Commode Bedside Commode # Bowel Movements 1 - Exam GENERAL EXAM: Alert, oriented, 64-year-old female on Airvo at 60 l/min, and Fio2 90%, 100% NRB comfortable in no apparent distress. HEAD: Normocephalic/atraumatic. EYES: Normal reaction of pupils, equal size. Conjunctiva pink, sclera white. NOSE: Clear with pink turbinates. THROAT: No erythema or exudates. NECK: No masses, no JVD, no thyroid enlargement, no adenopathy. CHEST: No chest wall deformity. Symmetrical expansion. LUNGS: Equal air entry with no crackles, wheeze, rhonchi or dullness. CVS: Regular rate and rhythm, normal S1 and S2, no gallops, no murmurs, no rubs ABDOMEN: Soft, nontender. No hepatosplenomegaly, normal bowel sounds, no guarding or rigidity. EXTREMITIES: No clubbing, no edema, no cyanosis, 2+ pulses and upper and lower extremities. MUSCULOSKELETAL: Muscle strength and tone normal. SPINE: No scoliosis or deformity SKIN: No rashes CENTRAL NERVOUS SYSTEM: Alert and oriented -3. No focal deficits, tone is normal in all 4 extremities. PSYCHIATRIC: Alert and oriented -3. Appropriate affect. Intact judgment and insight. - Labs CBC & Chem 7: 08/02/20 04:03 08/02/20 04:03 Labs: Abnormal Lab Results - Last 24 Hours (Table) 07/30/20 08/01/20 08/01/20 Range/Units 11:00 04:00 11:40 WBC (3.8-10.6) k/uL Hct (34.0-46.0) % Neutrophils # (1.3-7.7) k/uL Lymphocytes # (1.0-4.8) k/uL D-Dimer (<0.60) mg/L FEU BUN (7-17) mg/dL Glucose (74-99) mg/dL POC Glucose (mg/dL) 196 H (75-99) mg/dL Calcium (8.4-10.2) mg/dL Ferritin 514.5 H (10.0-291.0) ng/mL ALT (4-34) U/L C-Reactive Protein (<10.0) mg/L Total Protein (6.3-8.2) g/dL Albumin (3.5-5.0) g/dL Interleukin 6 46.7 H (<6.4) pg/mL 08/01/20 08/01/20 08/02/20 Range/Units 17:09 20:41 04:03 WBC 17.2 H (3.8-10.6) k/uL Hct 33.8 L (34.0-46.0) % Neutrophils # 15.4 H (1.3-7.7) k/uL Lymphocytes # 0.8 L (1.0-4.8) k/uL D-Dimer (<0.60) mg/L FEU BUN (7-17) mg/dL Glucose (74-99) mg/dL POC Glucose (mg/dL) 240 H 249 H (75-99) mg/dL Calcium (8.4-10.2) mg/dL Ferritin (10.0-291.0) ng/mL ALT (4-34) U/L C-Reactive Protein (<10.0) mg/L Total Protein (6.3-8.2) g/dL Albumin (3.5-5.0) g/dL Interleukin 6 (<6.4) pg/mL 08/02/20 08/02/20 Range/Units 04:03 04:03 WBC (3.8-10.6) k/uL Hct (34.0-46.0) % Neutrophils # (1.3-7.7) k/uL Lymphocytes # (1.0-4.8) k/uL D-Dimer 0.77 H (<0.60) mg/L FEU BUN 19 H (7-17) mg/dL Glucose 185 H (74-99) mg/dL POC Glucose (mg/dL) (75-99) mg/dL Calcium 8.0 L (8.4-10.2) mg/dL Ferritin (10.0-291.0) ng/mL ALT 54 H (4-34) U/L C-Reactive Protein 24.9 H (<10.0) mg/L Total Protein 5.7 L (6.3-8.2) g/dL Albumin 2.7 L (3.5-5.0) g/dL Interleukin 6 (<6.4) pg/mL Microbiology - Last 24 Hours (Table) 07/28/20 03:50 Blood Culture - Preliminary Blood No Growth after 120 hours Assessment and Plan Plan: Assessment: #1. Acute hypoxic respiratory failure, related to COVID 19 related pneumonitis, patient had 3 negative COVID 19 rapid test, however the diagnosis was confirmed with reactive antibiotic test, patient was initiated on Remdesivir on 07/28/2020 #2. Possibility of bacterial pneumonia ruled out based on negative pro- calcitonin, negative urine Legionella antigen, and negative mycoplasma IgM #3. History of rheumatoid arthritis, at this time it's unknown if patient has a ny chronic parenchymal changes from underlying history of rheumatoid arthritis #4. Hypothyroidism #5. Increased inflammatory markers including LDH, and CRP #6. Increased AST and ALT related to viral pneumonia secondary to COVID 19, improving Plan: Continue current medical treatment, patient has completed her Remdesivir, remains on high-dose IV Solu-Medrol, continue with current dose anticoagulation, antibiotics have been discontinued, and she's been afebrile, chest x-ray shows no significant change from previous chest x-rays, clinically patient seems to be satting a little better, breathing a little bit easier. We'll continue supportive treatment, prognosis remains guarded, continue to follow closely in the ICU I performed a history & physical examination of the patient and discussed their management with my nurse practitioner, Lilly Green. I reviewed the nurse practitioner's note and agree with the documented findings and plan of care. Lung sounds are positive for diminished breath soudns, and yusuf crackles. The findings and the impression was discussed with the patient. I attest to the documentation by the nurse practitioner. Time with Patient: Greater than 30
[2020-08-02 10:14] LABS: Ferritin 453.9 ng/mL (10.0-291.0)
--- NOTE | 2020-08-02 11:30 | P.PN ---
Subjective Progress Note Date: 08/02/20 HISTORY OF PRESENT ILLNESS This is a 64-year-old female patient of Dr. Mcdonough with a past medical history of hypothyroidism, rheumatoid arthritis. Patient was recently exposed to her mother with Covid 19. Mother last day had had stated her home. She now complains of cough and shortness of breath. She denies having any fever. Patient presented to [facility] emergency center for evaluation. She is found to be afebrile, heart rate 90, blood pressure 142/76, pulse ox 81% on room air. WBC 18.8, d-dimer 0.63, blood sugar 171. AST 94, ALT 126. LDH 1234. CK 36. Troponin negative. C-reactive protein 186.8. ProBNP 128. COVID-19 nondetected. Chest x-ray reveals moderate to severe. She rounded interstitial infiltrates throughout the mid and lower lungs bilaterally consistent with Covid 19 pneumonia inhalers, Lovenox, consult requested with pulmonary medicine [facility]. 07/29: The patient is now requiring nonrebreather and high flow nasal cannula 15 L with pulse ox of 95%. She has been afebrile, heart rate 68, blood pressure 121/72. She has been started on Remdesivir, day 2/5. Blood cultures are showing no growth at 24 hours. She continues to have a cough and cough with deep breathing. She denies chest pain or abdominal pain. Lovenox increase to twice daily. CAT scan angiogram of the chest ordered to rule out pulmonary embolism. This revealed diffuse bilateral airspace disease correlate for diffuse pneumonia or ARDS. No central pulmonary embolism distal branches are limited. 07/30: Patient is on day #3/5 on Remdesivir. She is status post convalescent plasma transfusion. The patient was transitioned to AirVo yesterday currently pulse oxing in the mid 80s on FiO2 90, flow rate of 60. Patient is to be transferred to the intensive care unit. Patient is complaining of shortness of breath as well as chest feeling tight and dry. Patient denies having any nausea, vomiting, diarrhea or abdominal pain. She's been afebrile, heart rate 65, blood pressure 143/58. D-dimer 0.63. Legionella negative. Sputum culture is in process. WBC 15, hemoglobin 12.2, platelet count 309, lymphocytes 0.8. Electrolytes normal, creatinine 0.5. Total bilirubin 0.4, AST 63, ALT 68, alkal ine phosphatase 109. LDH 482. C-reactive protein 12.8. Troponin 1 negative. Mycoplasma testing is in process. Discussed CODE STATUS the patient wishes to BE a full code. 07/31: Patient is seen today in the intensive care unit. She is on both nonrebreather and high flow nasal cannula pulse oxing 90%. Repeat chest x-ray reveals correlate for pneumonia. No respiratory distress noted at the time of the valve. She has been afebrile WBC 11.9, hemoglobin 11.3, d-dimer 0.6. Electrolytes and renal function normal. Ferritin 649. AST 47, ALT 62, LDH improving to 482. Pro-calcitonin 0.08. Antibiotics discontinued. Covid 19 antibody test came back reactive. Mycoplasma pneumoniae IgG elevated and IgM low at 0.61. Patient is now transfused 2 units of convalescent plasma. She is on day 4 of Remdesivir. Dexamethasone was transitioned Solu-Medrol. 08/01: Patient remains in the intensive care unit. She is currently on airflow and a nonrebreather. Pulse ox drops into the 70s when she tries to eat with Arava 1 only. At rest she can maintain pulse ox of 90%. She has been afebrile, heart rate 72, respiratory rate 32, pulse ox 89%. WBC 17.5, lymphocytes are 0.9. D-dimer 0.64. Creatinine 0.54. Blood sugars running in the 200s up to 327. Total bilirubin 0.4, AST 40, ALT 59, alkaline phosphatase 111. Peritoneal 514.5. C-reactive protein 40.8. Sputum culture finalized with normal ozzy. Patient's son Henry ([phone]) is requesting the patient be transferred to [facility]. Patient herself will do what ever family wishes for her. Patient is not progressing but no worsening either be stable today. Do not anticipate [place] transfer. [employer] is working with [place] at this time. Patient is on Remdesivir day #5/5. 08/02: Patient remains in the intensive care unit and pulse ox is 88-90% on Arava plus nonrebreather. She has been afebrile, heart rate 73, respiratory rate 29, blood pressure 134/65. WBC 17.2. D-dimer 0.77. Creatinine 0.58. Blood sugars running between 185 and 249. Ferritin 453.9. ALT 54. C-reactive protein 24.9. Scheduled NovoLog added to scale. REVIEW OF SYSTEMS Constitutional: No fever, no chills, no night sweats. No weight change. Reports weakness, reports fatigue. No daytime sleepiness. EENT: No headache. No blurred vision or double vision, no loss of vision. No loss of Hearing, no ringing in the ears, no dizziness. No nasal drainage or congestion. No epistaxis. No sore throat. Lungs: Reports continued shortness of breath, Reports cough, no sputum production. No wheezing. Cardiovascular: Reports chest pain, no lower extremity edema. No palpitations. No paroxysmal nocturnal dyspnea. No orthopnea. No lightheadedness or dizziness. No syncopal episodes. Abdominal: No abdominal pain. No nausea, vomiting. No diarrhea. No constipation. No bloody or tarry stools. No loss of appetite. Genitourinary: No dysuria, increased frequency, urgency. No urinary retention. Musculoskeletal: No myalgias. No muscle weakness, no gait dysfunction, no frequent falls. No back pain. No neck pain. Integumentary: No wounds, no lesions. No rash or pruritus. Neurologic: No aphasia. No facial droop. No change in mentation. No head injury. No headache. No paralysis. No paresthesia. Psychiatric: No depression. No anxiety. Endocrine: Elevated blood sugars. PHYSICAL EXAMINATION Gen: This is a 64-year-old female. She appears to be in mild distress at rest. HEENT: Head is atraumatic, normocephalic. Pupils equal, round. Sclerae is anicteric. NECK: Supple. No JVD. No lymphadenopathy. No thyromegaly. LUNGS: Fine crackles bilaterally throughout. No wheezing. Mild intercostal retractions. Mild accessory muscle usage. HEART: Regular rate and rhythm. No murmur. ABDOMEN: Soft. Bowel sounds are present. No masses. No tenderness. EXTREMITIES: No pedal edema. No calf tenderness. NEUROLOGICAL: Patient is awake, alert and oriented x3. Cranial nerves 2 through 12 are grossly intact. ASSESSMENT AND PLAN 1. Acute hypoxic respiratory failure secondary to Covid 19 pneumonia. Pulmonary medicine consult appreciated. Covid 19 antibody test positive. Patient on Remdesivir day 11/22, status post 2 unit convalescent plasma. Continue albuterol inhaler, vitamin supplements, dexamethasone transitioned to IV Solu- Medrol, Lovenox 40 mg twice daily. Continue oxygen therapy. She is currently on AirVo and on rebreather. 2. Acute bilateral pneumonia, Covid 19 pneumonia, possible bacterial pneumonia. 3. Elevated inflammatory markers consistent with Covid 19 pneumonia. 4. Rheumatoid arthritis. 5. Hypothyroidism. Continue levothyroxine 75 g daily. 6. GI prophylaxis. Protonix. 7. DVT prophylaxis. Lovenox. 8. Hyperglycemia secondary to steroids. Continue NovoLog scale and add 3 units with meals of NovoLog. DISCHARGE PLAN Most likely return home. Impression and plan of care have been directed as dictated by the signing physician. Leanne Luna nurse practitioner acting as scribe for signing physician. Objective - Vital Signs Vital signs: Vital Signs Temp 98.1 F 08/02/20 08:00 Pulse 74 08/02/20 08:00 Resp 25 H 08/02/20 08:00 BP 141/80 08/02/20 08:00 Pulse Ox 87 L 08/02/20 08:00 Intake & Output 08/01/20 08/02/20 08/02/20 18:59 06:59 18:59 Intake Total 2050 1400 450 Output Total 1800 1600 Balance 250 -200 450 Weight 69.7 kg Intake: IV 1450 1200 200 Remdesivir 100 mg In 250 Sodium Chloride 0.9% 250 ml @ 250 mls/hr IVPB DAILY@1200 LOAN Rx#: [id number] Sodium Chloride 0.9% 1, 1200 1200 200 000 ml @ 100 mls/hr IV . Q10H LOAN Rx#:[id number] Oral 300 200 250 Blood Product 300 Output: Urine 1800 1600 Other: Voiding Method Bedside Commode Bedside Commode Bedside Commode # Bowel Movements 1 - Labs CBC & Chem 7: 08/02/20 04:03 08/02/20 04:03 Labs: Abnormal Lab Results - Last 24 Hours (Table) 07/30/20 08/01/20 08/01/20 Range/Units 11:00 04:00 11:40 WBC (3.8-10.6) k/uL Hct (34.0-46.0) % Neutrophils # (1.3-7.7) k/uL Lymphocytes # (1.0-4.8) k/uL D-Dimer (<0.60) mg/L FEU BUN (7-17) mg/dL Glucose (74-99) mg/dL POC Glucose (mg/dL) 196 H (75-99) mg/dL Calcium (8.4-10.2) mg/dL Ferritin 514.5 H (10.0-291.0) ng/mL ALT (4-34) U/L C-Reactive Protein (<10.0) mg/L Total Protein (6.3-8.2) g/dL Albumin (3.5-5.0) g/dL Interleukin 6 46.7 H (<6.4) pg/mL 08/01/20 08/01/20 08/02/20 Range/Units 17:09 20:41 04:03 WBC 17.2 H (3.8-10.6) k/uL Hct 33.8 L (34.0-46.0) % Neutrophils # 15.4 H (1.3-7.7) k/uL Lymphocytes # 0.8 L (1.0-4.8) k/uL D-Dimer (<0.60) mg/L FEU BUN (7-17) mg/dL Glucose (74-99) mg/dL POC Glucose (mg/dL) 240 H 249 H (75-99) mg/dL Calcium (8.4-10.2) mg/dL Ferritin (10.0-291.0) ng/mL ALT (4-34) U/L C-Reactive Protein (<10.0) mg/L Total Protein (6.3-8.2) g/dL Albumin (3.5-5.0) g/dL Interleukin 6 (<6.4) pg/mL 08/02/20 08/02/20 Range/Units 04:03 04:03 WBC (3.8-10.6) k/uL Hct (34.0-46.0) % Neutrophils # (1.3-7.7) k/uL Lymphocytes # (1.0-4.8) k/uL D-Dimer 0.77 H (<0.60) mg/L FEU BUN 19 H (7-17) mg/dL Glucose 185 H (74-99) mg/dL POC Glucose (mg/dL) (75-99) mg/dL Calcium 8.0 L (8.4-10.2) mg/dL Ferritin (10.0-291.0) ng/mL ALT 54 H (4-34) U/L C-Reactive Protein 24.9 H (<10.0) mg/L Total Protein 5.7 L (6.3-8.2) g/dL Albumin 2.7 L (3.5-5.0) g/dL Interleukin 6 (<6.4) pg/mL Microbiology - Last 24 Hours (Table) 07/28/20 03:50 Blood Culture - Preliminary Blood No Growth after 120 hours
[2020-08-02 11:34] LABS: Glucose,Whole Blood 261 mg/dL (75-99)
[2020-08-02] MEDS ORDERED: INSULIN ASPART (NovoLOG) 100 UNIT/ML VIAL SQ ONE (11:42)
[2020-08-02 16:50] LABS: Glucose,Whole Blood 238 mg/dL (75-99)
[2020-08-02 21:02] LABS: Glucose,Whole Blood 306 mg/dL (75-99)
[2020-08-03] MEDS: SODIUM CHLORIDE 0.9% 1,000 ML IV SCH ×3 (00:31→20:14)
[2020-08-03] MEDS: methylPREDNISolone SOD SUCCI 125 MG/2 ML VIAL IV SCH ×4 (00:31→17:42)
[2020-08-03 04:36] LABS: Basophils # (A) 0.1 k/uL (0-0.2); Basophils % (A) 0 %; Eosinophils % (A) 0 %; HCT 32.7 % (34.0-46.0); HGB 11.4 gm/dL (11.4-16.0); Lymphocytes # (A) 0.6 k/uL (1.0-4.8); Lymphocytes % (A) 4 %; MCH 30.7 pg (25.0-35.0); MCHC 34.9 g/dL (31.0-37.0); MCV 87.9 fL (80.0-100.0); Mean Platelet Volume 7.5; Monocytes # (A) 0.7 k/uL (0-1.0); Monocytes % (A) 4 %; Neutrophils # (A) 14.3 k/uL (1.3-7.7); Neutrophils % (A) 91 %; Platelet Count 368 k/uL (150-450); RBC 3.72 m/uL (3.80-5.40); RDW 12.5 % (11.5-15.5); WBC 15.7 k/uL (3.8-10.6)
[2020-08-03 04:43] LABS: African American GFR (CKD) >90 (>60 ml/min/1.73 sqM); Anion Gap 3 mmol/L; Blood Urea Nitrogen 19 mg/dL (7-17); Carbon Dioxide 30 mmol/L (22-30); Chloride 103 mmol/L (98-107); Glucose 199 mg/dL (74-99); Non-African American GFR(CKD) >90 (>60 ml/min/1.73 sqM); Potassium 3.7 mmol/L (3.5-5.1); Sodium 136 mmol/L (137-145)
[2020-08-03] MEDS ORDERED: POTASSIUM CHLORIDE ER 20 MEQ TAB.ER PO SCH (06:00)
[2020-08-03] MEDS: LEVOTHYROXINE 75 MCG TAB PO SCH (06:10)
[2020-08-03] MEDS: PANTOPRAZOLE 40 MG TABLET PO SCH (06:11)
[2020-08-03 06:17] LABS: Glucose,Whole Blood 199 mg/dL (75-99)
[2020-08-03] MEDS: INSULIN ASPART (NovoLOG) 100 UNIT/ML VIAL SQ SCH ×8 (06:20→20:12)
[2020-08-03] MEDS: ALBUTEROL HFA INHALER INHALATION SCH ×4 (07:55→19:39)
--- NOTE | 2020-08-03 09:13 | XR ---
EXAMINATION TYPE: XR chest 1V portable DATE OF EXAM: 08/03/2020 Comparison: 08/02/2020 Clinical History: 64-year-old female follow-up COVID Findings: Heart upper limits of normal in size. Interstitial and patchy airspace opacities persist, right great er than left without significant change. No pleural effusion. Impression: Bilateral interstitial and patchy airspace disease, right greater than left, without significant frost ge.
[2020-08-03] MEDS: ENOXAPARIN 40 MG/0.4 ML SYRINGE SQ SCH ×2 (09:25→20:13)
[2020-08-03] MEDS: ASCORBIC ACID 500 MG TAB PO SCH (09:25)
[2020-08-03] MEDS: CHOLECALCIFEROL 1,000 UNIT TAB PO SCH (09:25)
[2020-08-03] MEDS: NYSTATIN 100,000 UNIT/ML SUSP 500,000 UNIT/5 ML CUP PO SCH ×4 (09:25→20:12)
[2020-08-03] MEDS: ZINC SULFATE 220 MG CAP PO SCH (09:25)
--- NOTE | 2020-08-03 10:30 | P.PN ---
Subjective Progress Note Date: 08/03/20 Principal diagnosis: COVID 19 pneumonitis This is a 64-year-old female patient of Dr. Lamin Mcdonough, who presented to the emergency department on July 2020 with one week history of fatigue, body aches, chills, worsening shortness of breath with multiple family members not feeling well with similar symptoms. Apparently patient tested for coronavirus and was found to be negative, in view of significant shortness of breath and hypoxemia with a pulse ox in the low 80s, EMS was called. Of note patient's mother recently passed in this hospital of COVID 19 related complications. Patient's daughter is also hospitalized with COVID 19 symptoms. Chest x-ray showed [id number] patchy rounded interstitial infiltrates throughout mid to lower lungs consistent with COVID 19 pneumonia. White blood cell count is 18.8, hemoglobin is 13, neutrophil count is 16.6, lymphocyte count was 1.4, d-dimer 0.63, electrolytes are within normal limits, BUN is 19 creatin ine 0.5, lactic acid is 1.2, repeat COVID 19 rapid test in the emergency department was again negative. Patient's creatinine 8 L of oxygen pulse ox is 90-95%. The patient is seen today 07/29/2020 in follow-up on the regular medical floor. She is currently awake and alert and she is in mild respiratory distress. Her oxygen requirements have increased overnight. She is currently on 15 L high fl ow nasal cannula initially on a nonrebreather mask. She's currently afebrile. Computed tomography scan of the chest reveals diffuse bilateral airspace disease consistent with CoVID 19 pneumonitis. No evidence of pulmonary embolism. She did receive 1 unit of convalescent plasma. Blood and sputum cultures are pending. She is currently on ceftriaxone and azithromycin along with dexamethasone, Lovenox, vitamin supplements. This is day #2 of Remdesivir. A shunt was reevaluated today on 07/30/2020, patient took a downhill course clinically this morning, continued to desaturate, required higher FiO2, and she is now on 60 L high flow, and 90% FiO2 on airvo. Patient was noted to be dyspneic by the nurse taking care of her. Her oxygen requirement jumped up significantly, hence I recommended transferring the patient to the ICU. Patient is on remdesivir, day #3, and she received 1 unit of convalescent plasma. Patient remains on antibiotics empirically in the form of Rocephin and Zithrom ax, she is also on dexamethasone, Lovenox, and vitamin supplements. On 07/31/2020 patient seen in follow-up in the intensive care unit, she is awake and alert, still requiring quite a bit of oxygen, she is on high flow per Airvo at 60 L and FiO2 of 90% in addition to 100% nonrebreather mask her pulse ox is ranging between 88-90-91%, but seems to be in no acute distress. Blood pressure stable, patient has been afebrile, she is short of breath with any exertion, no chest discomfort. Today's chest x-ray has been reviewed showing bilateral patchy airspace disease persistence, low lung volumes and patient is rotated. Today's labs have been reviewed, showing white blood cell count of 11.9, hem oglobin is 11.3, d-dimer is 0.60, electrolytes and renal profile are unremarkable. Ferritin level is 649, liver enzymes are improving, AST is down to 47, ALT 62, LDH was improving from admission, and was down to 482 on yesterday's labs, CRP is up a bit from yesterday but overall is down compared to admission, pro-calcitonin level is negative at 0.08, patient's Covid 19 antibiotic test came back reactive confirming suspicion for Covid 19 related pneumonitis, Legionella urine antigen was negative, and mycoplasma pneumonia IgG came back elevated and mycoplasma pneumonia IgM was low at 0.61, suggesting exposure to mycoplasma pneumonia infection in the past but no current infection. Blood and sputum cultures have been negative. Patient is status post transfusion with 2 units of convalescent plasma and patient is on day 3 of Remdesivir treatment, she is on high-dose IV steroids with Solu-Medrol 40 mg every 6 hours and Lovenox at 40 mg twice daily On 08/01/2020 patient seen in follow-up in the intensive care unit, she remains on Airvo a 60 L and FiO2 of 90% in addition to 100% nonrebreather mask, and patient still quite hypoxic, and when she removes the nonrebreather mask for mealtimes patient quickly desats down to 79% and has to be placed on the additional oxygen until she recovers her saturation. Currently O2 sat is anywhere between 83 to 90%, afebrile, patient is dyspneic with any little exertion, but appears to be in no acute distress, no completes of chest pain, mild cough, chest x-ray today shows bilateral groundglass opacities, similar to previous exam, with possibly slight interval improvement in aeration. Patient is on day 4 of Remdesivir treatment, she status post revision with 2 units of convalescent immunoglobulin for Covid 19 and she remains on IV steroids with Solu-Medrol 80 mg every 6 hours in addition to vitamins, C, D and zinc, anticoagulation is with Lovenox 40 mg every 12 hours, and d-dimer is currently at 0.64, serum labs have been reviewed, showing white blood cell count 17.5, electrolytes and renal profile are unremarkable. On 08/02/2020 patient seen in follow-up in the intensive care unit, she remains on Airvo at 60 L at FiO2 of 90% in addition to 100% nonrebreather mask, however her sats noted to be better today, and during meals patient's O2 sat did not drop as low, patient is able tolerate breaks from the nonrebreather mask a levar le better. Breathing little better, she's been afebrile, hemodynamically stable, chest x-ray shows bilateral patchy infiltrates, stable in appearance. Patient completed her Remdesivir treatment, she did receive 2 units of convalescent plasma, she remains on IV steroids at 60 mg every 6 hours, sharon mins, and Lovenox at 40 mg every 12 hours. Today's labs have been reviewed, showing blood cell count 17.2, hemoglobin is 11.5, lymphopenia with the lymphocyte count of 0.8, neutrophils at 15.4, d-dimer 0.7, electrolytes are within normal limits, BUN is 19 and creatinine 0.58, d-dimer today is 0.77, CRP is 24.9, no LDH today, patient did receive a few days of antibiotics which were discontinued On 08/03/2020 patient seen in follow-up in the intensive care unit, she remains on Airvo at 60 L and FiO2 of 90% in addition to nonrebreather mask at 100%, and her pulse ox is 93-95%, normal. Does not appear to be in any acute distress, however does have exertional dyspnea. She's been afebrile, hemodynamically she is stable, no altered mentation, she is answering questions appropriately. Chest x-ray today shows bilateral interstitial and patchy airspace disease right greater than left without significant change. Denies any palpitations or chest discomfort, no significant cough. Patient status post 2 units of convalescent plasma, she remains on IV steroids, and she has completed her Remdesivir treatment. He remains on Lovenox at 40 mg every 12 hours, her d-dimer was 0.77. The rest of her lab data was reviewed, showing white blood cell count is 15.7, hemoglobin is 11.4, electrolytes and renal profile were unremarkable. Ferritin level has been trending down, her LDH from a few days ago was 482, and CRP was 24.9 on yesterday's labs. She's had no nausea vomiting or diarrhea. She is tolerating oral intake. Objective - Vital Signs Vital signs: Vital Signs Temp 98.4 F 08/03/20 08:00 Pulse 73 08/03/20 09:00 Resp 14 08/03/20 09:00 BP 136/68 08/03/20 09:00 Pulse Ox 94 L 08/03/20 09:00 Intake & Output 08/02/20 08/03/20 08/03/20 18:59 06:59 18:59 Intake Total 2300 1200 300 Output Total 1300 2050 1000 Balance 1000 -850 -700 Weight 71 kg Intake: IV 1200 1200 300 Sodium Chloride 0.9% 1, 1200 1200 300 000 ml @ 100 mls/hr IV . Q10H LOAN Rx#:[id number] Oral 1100 Output: Urine 1300 2050 1000 Other: Voiding Method Bedside Commode Bedside Commode Bedside Commode # Bowel Movements 1 - Exam GENERAL EXAM: Alert, oriented, 64-year-old female on Airvo at 60 l/min, and Fio2 90%, 100% NRB comfortable in no apparent distress. HEAD: Normocephalic/atraumatic. EYES: Normal reaction of pupils, equal size. Conjunctiva pink, sclera white. NOSE: Clear with pink turbinates. THROAT: No erythema or exudates. NECK: No masses, no JVD, no thyroid enlargement, no adenopathy. CHEST: No chest wall deformity. Symmetrical expansion. LUNGS: Equal air entry with no crackles, wheeze, rhonchi or dullness. CVS: Regular rate and rhythm, normal S1 and S2, no gallops, no murmurs, no rubs ABDOMEN: Soft, nontender. No hepatosplenomegaly, normal bowel sounds, no guarding or rigidity. EXTREMITIES: No clubbing, no edema, no cyanosis, 2+ pulses and upper and lower extremities. MUSCULOSKELETAL: Muscle strength and tone normal. SPINE: No scoliosis or deformity SKIN: No rashes CENTRAL NERVOUS SYSTEM: Alert and oriented -3. No focal deficits, tone is normal in all 4 extremities. PSYCHIATRIC: Alert and oriented -3. Appropriate affect. Intact judgment and insight. - Labs CBC & Chem 7: 08/03/20 04:09 08/03/20 04:09 Labs: Abnormal Lab Results - Last 24 Hours (Table) 08/02/20 08/02/20 08/02/20 Range/Units 11:32 16:47 21:01 WBC (3.8-10.6) k/uL RBC (3.80-5.40) m/uL Hct (34.0-46.0) % Neutrophils # (1.3-7.7) k/uL Lymphocytes # (1.0-4.8) k/uL Sodium (137-145) mmol/L BUN (7-17) mg/dL Glucose (74-99) mg/dL POC Glucose (mg/dL) 261 H 238 H 306 H (75-99) mg/dL Calcium (8.4-10.2) mg/dL 08/03/20 08/03/20 08/03/20 Range/Units 04:09 04:09 06:16 WBC 15.7 H (3.8-10.6) k/uL RBC 3.72 L (3.80-5.40) m/uL Hct 32.7 L (34.0-46.0) % Neutrophils # 14.3 H (1.3-7.7) k/uL Lymphocytes # 0.6 L (1.0-4.8) k/uL Sodium 136 L (137-145) mmol/L BUN 19 H (7-17) mg/dL Glucose 199 H (74-99) mg/dL POC Glucose (mg/dL) 199 H (75-99) mg/dL Calcium 8.0 L (8.4-10.2) mg/dL Microbiology - Last 24 Hours (Table) 07/28/20 03:50 Blood Culture - Final Blood No Growth after 144 hours Assessment and Plan Plan: Assessment: #1. Acute hypoxic respiratory failure, related to COVID 19 related pneumonitis, patient had 3 negative COVID 19 rapid test, however the diagnosis was confirmed with reactive antibiotic test, patient was initiated on Remdesivir on 07/28/2020, and she received 2 units of convalescent plasma on 07/28/2020 and a 07/30/2020. Remains on high flow oxygen per Airvo is 60 L and FiO2 of 95% in ad dition to 100% nonrebreather mask #2. Possibility of bacterial pneumonia ruled out based on negative pro- calcitonin, negative urine Legionella antigen, and negative mycoplasma IgM #3. History of rheumatoid arthritis, at this time it's unknown if patient has any chronic parenchymal changes from underlying history of rheumatoid arthritis #4. Hypothyroidism #5. Increased inflammatory markers including LDH, and CRP #6. Increased AST and ALT related to viral pneumonia secondary to COVID 19, improving Plan: We'll obtain follow-up d-dimer and inflammatory markers tomorrow, continue Airvo , try to wean the nonrebreather mask, encourage oral intake, continue same dose anticoagulation, patient has completed her Remdesivir, continue same dose IV steroids, asked x-ray is without any significant change no significant improvement or worsening. We'll continue to closely follow in the intensive care unit, overall prognosis is guarded. I performed a history & physical examination of the patient and discussed their management with my nurse practitioner, Lilly Green. I reviewed the nurse practitioner's note and agree with the documented findings and plan of care. Lung sounds are positive for diminished breath soudns, and yusuf crackles. The findings and the impression was discussed with the patient. I attest to the documentation by the nurse practitioner. Time with Patient: Greater than 30
[2020-08-03 11:37] LABS: Glucose,Whole Blood 180 mg/dL (75-99)
[2020-08-03 12:06] LABS: Glucose,Whole Blood 196 mg/dL (75-99)
[2020-08-03] MEDS: INSULIN DETEMIR (LEVEMIR) 100 UNIT/ML SYR SQ SCH (12:09)
--- NOTE | 2020-08-03 12:16 | P.PN ---
Subjective Progress Note Date: 08/03/20 HISTORY OF PRESENT ILLNESS This is a 64-year-old female patient of Dr. Mcdonough with a past medical history of hypothyroidism, rheumatoid arthritis. Patient was recently exposed to her mother with Covid 19. Mother last day had had stated her home. She now complains of cough and shortness of breath. She denies having any fever. Patient presented to [facility] emergency center for evaluation. She is found to be afebrile, heart rate 90, blood pressure 142/76, pulse ox 81% on room air. WBC 18.8, d-dimer 0.63, blood sugar 171. AST 94, ALT 126. LDH 1234. CK 36. Troponin negative. C-reactive protein 186.8. ProBNP 128. COVID-19 nondetected. Chest x-ray reveals moderate to severe. She rounded interstitial infiltrates throughout the mid and lower lungs bilaterally consistent with Covid 19 pneumonia inhalers, Lovenox, consult requested with pulmonary medicine [facility]. 07/29: The patient is now requiring nonrebreather and high flow nasal cannula 15 L with pulse ox of 95%. She has been afebrile, heart rate 68, blood pressure 121/72. She has been started on Remdesivir, day 2/5. Blood cultures are showing no growth at 24 hours. She continues to have a cough and cough with deep breathing. She denies chest pain or abdominal pain. Lovenox increase to twice daily. CAT scan angiogram of the chest ordered to rule out pulmonary embolism. This revealed diffuse bilateral airspace disease correlate for diffuse pneumonia or ARDS. No central pulmonary embolism distal branches are limited. 07/30: Patient is on day #3/5 on Remdesivir. She is status post convalescent plasma transfusion. The patient was transitioned to AirVo yesterday currently pulse oxing in the mid 80s on FiO2 90, flow rate of 60. Patient is to be transferred to the intensive care unit. Patient is complaining of shortness of breath as well as chest feeling tight and dry. Patient denies having any nausea, vomiting, diarrhea or abdominal pain. She's been afebrile, heart rate 65, blood pressure 143/58. D-dimer 0.63. Legionella negative. Sputum culture is in process. WBC 15, hemoglobin 12.2, platelet count 309, lymphocytes 0.8. Electrolytes normal, creatinine 0.5. Total bilirubin 0.4, AST 63, ALT 68, alkal ine phosphatase 109. LDH 482. C-reactive protein 12.8. Troponin 1 negative. Mycoplasma testing is in process. Discussed CODE STATUS the patient wishes to BE a full code. 07/31: Patient is seen today in the intensive care unit. She is on both nonrebreather and high flow nasal cannula pulse oxing 90%. Repeat chest x-ray reveals correlate for pneumonia. No respiratory distress noted at the time of the valve. She has been afebrile WBC 11.9, hemoglobin 11.3, d-dimer 0.6. Electrolytes and renal function normal. Ferritin 649. AST 47, ALT 62, LDH improving to 482. Pro-calcitonin 0.08. Antibiotics discontinued. Covid 19 antibody test came back reactive. Mycoplasma pneumoniae IgG elevated and IgM low at 0.61. Patient is now transfused 2 units of convalescent plasma. She is on day 4 of Remdesivir. Dexamethasone was transitioned Solu-Medrol. 08/01: Patient remains in the intensive care unit. She is currently on airflow and a nonrebreather. Pulse ox drops into the 70s when she tries to eat with Arava 1 only. At rest she can maintain pulse ox of 90%. She has been afebrile, heart rate 72, respiratory rate 32, pulse ox 89%. WBC 17.5, lymphocytes are 0.9. D-dimer 0.64. Creatinine 0.54. Blood sugars running in the 200s up to 327. Total bilirubin 0.4, AST 40, ALT 59, alkaline phosphatase 111. Peritoneal 514.5. C-reactive protein 40.8. Sputum culture finalized with normal ozzy. Patient's son Henry ([phone]) is requesting the patient be transferred to [facility]. Patient herself will do what ever family wishes for her. Patient is not progressing but no worsening either be stable today. Do not anticipate [place] transfer. advertising project manager is working with [place] at this time. Patient is on Remdesivir day #5/5. 08/02: Patient remains in the intensive care unit and pulse ox is 88-90% on Arava plus nonrebreather. She has been afebrile, heart rate 73, respiratory rate 29, blood pressure 134/65. WBC 17.2. D-dimer 0.77. Creatinine 0.58. Blood sugars running between 185 and 249. Ferritin 453.9. ALT 54. C-reactive protein 24.9. Scheduled NovoLog added to scale. 08/03: Patient remains in the intensive care unit and since she is feeling better. She is currently on airflow and nonrebreather at night with pulse ox is 94%. She is on airflow only during the day. Patient continues to have hyperglycemia for which NovoLog increased to 10 units scheduled and Levemir added. Patient is afebrile, heart rate 73, blood pressure 136/68. WBC 15.7, hemoglobin 11.4. Sodium 136, BUN 19 and creatinine 0.53. Blood sugars running between 199 at 306. Patient is laying on her sides which is close to she can get to proning. breakfast manager sinus rhythm. REVIEW OF SYSTEMS Constitutional: No fever, no chills, no night sweats. Reports weakness, reports fatigue. No daytime sleepiness. EENT: No headache. No blurred vision or double vision, no loss of vision. No loss of Hearing, no ringing in the ears, no dizziness. No nasal drainage or congestion. No epistaxis. No sore throat. Lungs: Reports continued shortness of breath, Reports cough, no sputum production. No wheezing. Cardiovascular: Reports chest pain, no lower extremity edema. No palpitations. No paroxysmal nocturnal dyspnea. No orthopnea. No lightheadedness or dizziness. No syncopal episodes. Abdominal: No abdominal pain. No nausea, vomiting. No diarrhea. No constipation. No bloody or tarry stools. No loss of appetite. Genitourinary: No dysuria, increased frequency, urgency. No urinary retention. Musculoskeletal: No myalgias. No muscle weakness, no gait dysfunction, no frequent falls. No back pain. No neck pain. Integumentary: No wounds, no lesions. No rash or pruritus. Neurologic: No aphasia. No facial droop. No change in mentation. No head injury. No headache. No paralysis. No paresthesia. Psychiatric: No depression. No anxiety. Endocrine: Elevated blood sugars. PHYSICAL EXAMINATION Gen: This is a 64-year-old female. She appears comfortable while at rest. HEENT: Head is atraumatic, normocephalic. Pupils equal, round. Sclerae is anicteric. NECK: Supple. No JVD. No lymphadenopathy. No thyromegaly. LUNGS: Fine crackles bilaterally throughout. No wheezing. HEART: Regular rate and rhythm. No murmur. ABDOMEN: Soft. Bowel sounds are present. No masses. No tenderness. EXTREMITIES: No pedal edema. No calf tenderness. NEUROLOGICAL: Patient is awake, alert and oriented x3. Cranial nerves 2 through 12 are grossly intact. ASSESSMENT AND PLAN 1. Acute hypoxic respiratory failure secondary to Covid 19 pneumonia. Pulmonary medicine consult appreciated. Covid 19 antibody test positive. Patient on Remdesivir day 11/22, status post 2 unit convalescent plasma. Continue albuterol inhaler, vitamin supplements, dexamethasone transitioned to IV Solu- Medrol, Lovenox 40 mg twice daily. Continue oxygen therapy. She is currently on AirVo and on rebreather. 2. Acute bilateral pneumonia, Covid 19 pneumonia, possible bacterial pneumonia. 3. Elevated inflammatory markers consistent with Covid 19 pneumonia. 4. Rheumatoid arthritis. 5. Hypothyroidism. Continue levothyroxine 75 g daily. 6. GI prophylaxis. Protonix. 7. DVT prophylaxis. Lovenox. 8. Hyperglycemia secondary to steroids. Continue NovoLog scale and add 10 units units with meals of NovoLog and Levemir 5 units daily. DISCHARGE PLAN Most likely return home, to be determined. Impression and plan of care have been directed as dictated by the signing physician. Leanne Luna nurse practitioner acting as scribe for signing antonio garcia. Objective - Vital Signs Vital signs: Vital Signs Temp 98.4 F 08/03/20 08:00 Pulse 70 08/03/20 11:00 Resp 28 H 08/03/20 11:00 BP 146/73 08/03/20 11:00 Pulse Ox 93 L 08/03/20 11:00 Intake & Output 08/02/20 08/03/20 08/03/20 18:59 06:59 18:59 Intake Total 2300 1200 600 Output Total 1300 2050 1400 Balance 1000 -850 -800 Weight 71 kg Intake: IV 1200 1200 600 Sodium Chloride 0.9% 1, 1200 1200 600 000 ml @ 100 mls/hr IV . Q10H LOAN Rx#:[id number] Oral 1100 Output: Urine 1300 2050 1400 Other: Voiding Method Bedside Commode Bedside Commode Bedside Commode # Bowel Movements 1 - Labs CBC & Chem 7: 08/03/20 04:09 08/03/20 04:09 Labs: Abnormal Lab Results - Last 24 Hours (Table) 08/02/20 08/02/20 08/03/20 Range/Units 16:47 21:01 04:09 WBC 15.7 H (3.8-10.6) k/uL RBC 3.72 L (3.80-5.40) m/uL Hct 32.7 L (34.0-46.0) % Neutrophils # 14.3 H (1.3-7.7) k/uL Lymphocytes # 0.6 L (1.0-4.8) k/uL Sodium (137-145) mmol/L BUN (7-17) mg/dL Glucose (74-99) mg/dL POC Glucose (mg/dL) 238 H 306 H (75-99) mg/dL Calcium (8.4-10.2) mg/dL 08/03/20 08/03/20 08/03/20 Range/Units 04:09 06:16 11:35 WBC (3.8-10.6) k/uL RBC (3.80-5.40) m/uL Hct (34.0-46.0) % Neutrophils # (1.3-7.7) k/uL Lymphocytes # (1.0-4.8) k/uL Sodium 136 L (137-145) mmol/L BUN 19 H (7-17) mg/dL Glucose 199 H (74-99) mg/dL POC Glucose (mg/dL) 199 H 180 H (75-99) mg/dL Calcium 8.0 L (8.4-10.2) mg/dL 08/03/20 Range/Units 12:04 WBC (3.8-10.6) k/uL RBC (3.80-5.40) m/uL Hct (34.0-46.0) % Neutrophils # (1.3-7.7) k/uL Lymphocytes # (1.0-4.8) k/uL Sodium (137-145) mmol/L BUN (7-17) mg/dL Glucose (74-99) mg/dL POC Glucose (mg/dL) 196 H (75-99) mg/dL Calcium (8.4-10.2) mg/dL Microbiology - Last 24 Hours (Table) 07/28/20 03:50 Blood Culture - Final Blood No Growth after 144 hours
[2020-08-03] MEDS: BENZOCAINE/MENTHOL LOZENG 1 EACH LOZENGE MUCOUS MEM PRN (16:31)
[2020-08-03 17:40] LABS: Glucose,Whole Blood 231 mg/dL (75-99)
[2020-08-03 20:00] LABS: Glucose,Whole Blood 217 mg/dL (75-99)
[2020-08-03] MEDS: HYDROcodone/APAP 5-325MG 1 EACH TAB PO PRN (20:13)
[2020-08-04] MEDS: methylPREDNISolone SOD SUCCI 125 MG/2 ML VIAL IV SCH ×5 (00:20→23:19)
[2020-08-04 04:51] LABS: C Reactive Protein 13.9 mg/L (<10.0)
[2020-08-04 06:15] LABS: HCT 33.3 % (34.0-46.0); HGB 11.5 gm/dL (11.4-16.0); MCHC 34.6 g/dL (31.0-37.0); MCV 89.4 fL (80.0-100.0); Mean Platelet Volume 8.5; Platelet Count 389 k/uL (150-450); RBC 3.73 m/uL (3.80-5.40); RDW 12.8 % (11.5-15.5); WBC 17.1 k/uL (3.8-10.6)
[2020-08-04 06:20] LABS: African American GFR (CKD) >90 (>60 ml/min/1.73 sqM); Anion Gap 2 mmol/L; Blood Urea Nitrogen 21 mg/dL (7-17); Carbon Dioxide 32 mmol/L (22-30); Chloride 102 mmol/L (98-107); Glucose 168 mg/dL (74-99); Non-African American GFR(CKD) >90 (>60 ml/min/1.73 sqM); Potassium 3.7 mmol/L (3.5-5.1); Sodium 136 mmol/L (137-145)
[2020-08-04] MEDS ORDERED: POTASSIUM CHLORIDE 10 MEQ in WATER FOR INJECTION 1 100ML.BAG IVPB SCH (06:30)
[2020-08-04] MEDS: PANTOPRAZOLE 40 MG TABLET PO SCH (06:41)
[2020-08-04] MEDS: SODIUM CHLORIDE 0.9% 1,000 ML IV SCH ×3 (06:41→23:12)
[2020-08-04] MEDS: LEVOTHYROXINE 75 MCG TAB PO SCH (06:41)
[2020-08-04 06:52] LABS: Glucose,Whole Blood 170 mg/dL (75-99)
[2020-08-04] MEDS: INSULIN ASPART (NovoLOG) 100 UNIT/ML VIAL SQ SCH ×8 (06:52→20:14)
[2020-08-04] MEDS: INSULIN DETEMIR (LEVEMIR) 100 UNIT/ML SYR SQ SCH (06:53)
[2020-08-04] MEDS ORDERED: POTASSIUM CHLORIDE ER 20 MEQ TAB.ER PO SCH (07:00)
[2020-08-04] MEDS: CHOLECALCIFEROL 1,000 UNIT TAB PO SCH (08:09)
[2020-08-04] MEDS: ZINC SULFATE 220 MG CAP PO SCH (08:09)
[2020-08-04] MEDS: NYSTATIN 100,000 UNIT/ML SUSP 500,000 UNIT/5 ML CUP PO SCH ×4 (08:09→20:00)
[2020-08-04] MEDS: ASCORBIC ACID 500 MG TAB PO SCH (08:09)
[2020-08-04] MEDS: ENOXAPARIN 40 MG/0.4 ML SYRINGE SQ SCH ×2 (08:09→20:00)
[2020-08-04] MEDS: ALBUTEROL HFA INHALER INHALATION SCH ×4 (08:47→19:27)
--- NOTE | 2020-08-04 09:56 | P.PN ---
Subjective Progress Note Date: 08/04/20 HISTORY OF PRESENT ILLNESS This is a 64-year-old female patient of Dr. Mcdonough with a past medical history of hypothyroidism, rheumatoid arthritis. Patient was recently exposed to her mother with Covid 19. Mother last day had had stated her home. She now complains of cough and shortness of breath. She denies having any fever. Patient presented to [facility] emergency center for evaluation. She is found to be afebrile, heart rate 90, blood pressure 142/76, pulse ox 81% on room air. WBC 18.8, d-dimer 0.63, blood sugar 171. AST 94, ALT 126. LDH 1234. CK 36. Troponin negative. C-reactive protein 186.8. ProBNP 128. COVID-19 nondetected. Chest x-ray reveals moderate to severe. She rounded interstitial infiltrates throughout the mid and lower lungs bilaterally consistent with Covid 19 pneumonia inhalers, Lovenox, consult requested with pulmonary medicine [facility]. 07/29: The patient is now requiring nonrebreather and high flow nasal cannula 15 L with pulse ox of 95%. She has been afebrile, heart rate 68, blood pressure 121/72. She has been started on Remdesivir, day 2/5. Blood cultures are showing no growth at 24 hours. She continues to have a cough and cough with deep breathing. She denies chest pain or abdominal pain. Lovenox increase to twice daily. CAT scan angiogram of the chest ordered to rule out pulmonary embolism. This revealed diffuse bilateral airspace disease correlate for diffuse pneumonia or ARDS. No central pulmonary embolism distal branches are limited. 07/30: Patient is on day #3/5 on Remdesivir. She is status post convalescent plasma transfusion. The patient was transitioned to AirVo yesterday currently pulse oxing in the mid 80s on FiO2 90, flow rate of 60. Patient is to be transferred to the intensive care unit. Patient is complaining of shortness of breath as well as chest feeling tight and dry. Patient denies having any nausea, vomiting, diarrhea or abdominal pain. She's been afebrile, heart rate 65, blood pressure 143/58. D-dimer 0.63. Legionella negative. Sputum culture is in process. WBC 15, hemoglobin 12.2, platelet count 309, lymphocytes 0.8. Electrolytes normal, creatinine 0.5. Total bilirubin 0.4, AST 63, ALT 68, alkal ine phosphatase 109. LDH 482. C-reactive protein 12.8. Troponin 1 negative. Mycoplasma testing is in process. Discussed CODE STATUS the patient wishes to BE a full code. 07/31: Patient is seen today in the intensive care unit. She is on both nonrebreather and high flow nasal cannula pulse oxing 90%. Repeat chest x-ray reveals correlate for pneumonia. No respiratory distress noted at the time of the valve. She has been afebrile WBC 11.9, hemoglobin 11.3, d-dimer 0.6. Electrolytes and renal function normal. Ferritin 649. AST 47, ALT 62, LDH improving to 482. Pro-calcitonin 0.08. Antibiotics discontinued. Covid 19 antibody test came back reactive. Mycoplasma pneumoniae IgG elevated and IgM low at 0.61. Patient is now transfused 2 units of convalescent plasma. She is on day 4 of Remdesivir. Dexamethasone was transitioned Solu-Medrol. 08/01: Patient remains in the intensive care unit. She is currently on airflow and a nonrebreather. Pulse ox drops into the 70s when she tries to eat with Arava 1 only. At rest she can maintain pulse ox of 90%. She has been afebrile, heart rate 72, respiratory rate 32, pulse ox 89%. WBC 17.5, lymphocytes are 0.9. D-dimer 0.64. Creatinine 0.54. Blood sugars running in the 200s up to 327. Total bilirubin 0.4, AST 40, ALT 59, alkaline phosphatase 111. Peritoneal 514.5. C-reactive protein 40.8. Sputum culture finalized with normal ozzy. Patient's son Henry ([phone]) is requesting the patient be transferred to [facility]. Patient herself will do what ever family wishes for her. Patient is not progressing but no worsening either be stable today. Do not anticipate [place] transfer. operations research group manager is working with [place] at this time. Patient is on Remdesivir day #5/5. 08/02: Patient remains in the intensive care unit and pulse ox is 88-90% on Arava plus nonrebreather. She has been afebrile, heart rate 73, respiratory rate 29, blood pressure 134/65. WBC 17.2. D-dimer 0.77. Creatinine 0.58. Blood sugars running between 185 and 249. Ferritin 453.9. ALT 54. C-reactive protein 24.9. Scheduled NovoLog added to scale. 08/03: Patient remains in the intensive care unit and since she is feeling better. She is currently on airflow and nonrebreather at night with pulse ox is 94%. She is on airflow only during the day. Patient continues to have hyperglycemia for which NovoLog increased to 10 units scheduled and Levemir added. Patient is afebrile, heart rate 73, blood pressure 136/68. WBC 15.7, hemoglobin 11.4. Sodium 136, BUN 19 and creatinine 0.53. Blood sugars running between 199 at 306. Patient is laying on her sides which is close to she can get to proning. conveyor monitor sinus rhythm. 08/04: Patient remains in the intensive care unit. Her respiratory status is slowly improving. She is now pulse oxing 90-94% with FiO2 of 65 and flow rate 50 which is down from 65%. She's been afebrile, heart rate 73, blood pressure 150/77. conveyor monitor is sinus rhythm. Patient is eating very well. Patient is scheduled for midline insertion today. Blood sugars remain elevated 178-231 and Levemir increased to 10 units in the morning and scheduled NovoLog to 7 units. Other lab work reveals WBC 17.1. D-dimer 0.88. BUN 21 and creatinine 0.46. C-reactive protein 13.9. LDH 1448. REVIEW OF SYSTEMS Constitutional: No fever, no chills, no night sweats. Reports weakness, reports fatigue. No daytime sleepiness. EENT: No headache. No blurred vision or double vision, no loss of vision. No loss of Hearing, no ringing in the ears, no dizziness. No nasal drainage or congestion. No epistaxis. No sore throat. Lungs: Reports continued shortness of breath, Reports cough, no sputum production. No wheezing. Cardiovascular: Reports chest pain, no lower extremity edema. No palpitations. No paroxysmal nocturnal dyspnea. No orthopnea. No lightheadedness or dizziness. No syncopal episodes. Abdominal: No abdominal pain. No nausea, vomiting. No diarrhea. No constipation. No bloody or tarry stools. Good appetite. Genitourinary: No dysuria, increased frequency, urgency. No urinary retention. Musculoskeletal: No myalgias. No muscle weakness, no gait dysfunction, no frequent falls. No back pain. No neck pain. Integumentary: No wounds, no lesions. No rash or pruritus. Neurologic: No aphasia. No facial droop. No change in mentation. No head injury. No headache. No paralysis. No paresthesia. Psychiatric: No depression. No anxiety. Endocrine: Elevated blood sugars. PHYSICAL EXAMINATION Gen: This is a 64-year-old female. She is in today sitting in chair appears comfortable while at rest. HEENT: Head is atraumatic, normocephalic. Pupils equal, round. Sclerae is anicteric. NECK: Supple. No JVD. No lymphadenopathy. No thyromegaly. LUNGS: Fine crackles bilaterally throughout. No wheezing. HEART: Regular rate and rhythm. No murmur. ABDOMEN: Soft. Bowel sounds are present. No masses. No tenderness. EXTREMITIES: No pedal edema. No calf tenderness. NEUROLOGICAL: Patient is awake, alert and oriented x3. Cranial nerves 2 through 12 are grossly intact. ASSESSMENT AND PLAN 1. Acute hypoxic respiratory failure secondary to Covid 19 pneumonia. Pulmonary medicine consult appreciated. Covid 19 antibody test positive. Patient on Remdesivir day 11/22, status post 2 unit convalescent plasma. Continue albuterol inhaler, vitamin supplements, IV Solu-Medrol, Lovenox 40 mg twice daily. Continue oxygen therapy. She is currently on AirVo and on rebreather. 2. Acute bilateral pneumonia, Covid 19 pneumonia, possible bacterial pneumonia. 3. Elevated inflammatory markers consistent with Covid 19 pneumonia. 4. Rheumatoid arthritis. 5. Hypothyroidism. Continue levothyroxine 75 g daily. 6. GI prophylaxis. Protonix. 7. DVT prophylaxis. Lovenox. 8. Hyperglycemia secondary to steroids. Continue NovoLog scale plus scheduled NovoLog 7 units with meals and at bedtime and Levemir creased to 10 units daily. DISCHARGE PLAN Most likely return home, to be determined. Impression and plan of care have been directed as dictated by the signing physician. Leanne Luna nurse practitioner acting as scribe for signing physician. Objective - Vital Signs Vital signs: Vital Signs Temp 98.1 F 08/04/20 08:00 Pulse 70 08/04/20 08:00 Resp 20 08/04/20 08:00 BP 142/72 08/04/20 08:00 Pulse Ox 90 L 08/04/20 08:47 Intake & Output 08/03/20 08/04/20 08/04/20 18:59 06:59 18:59 Intake Total 1200 1210 200 Output Total 1800 1600 650 Balance -600 -390 -450 Weight 70.5 kg Intake: IV 1200 1010 200 Sodium Chloride 0.9% 1, 1200 1010 200 000 ml @ 100 mls/hr IV . Q10H LOAN Rx#:[id number] Oral 200 Output: Urine 1800 1600 650 Other: Voiding Method Bedside Commode Bedside Commode # Bowel Movements 1 1 - Labs CBC & Chem 7: 08/04/20 04:24 08/04/20 04:24 Labs: Abnormal Lab Results - Last 24 Hours (Table) 08/03/20 08/03/20 08/03/20 Range/Units 11:35 12:04 17:39 WBC (3.8-10.6) k/uL RBC (3.80-5.40) m/uL Hct (34.0-46.0) % D-Dimer (<0.60) mg/L FEU Sodium (137-145) mmol/L Carbon Dioxide (22-30) mmol/L BUN (7-17) mg/dL Glucose (74-99) mg/dL POC Glucose (mg/dL) 180 H 196 H 231 H (75-99) mg/dL Calcium (8.4-10.2) mg/dL Lactate Dehydrogenase (313-618) U/L C-Reactive Protein (<10.0) mg/L 08/03/20 08/04/20 08/04/20 Range/Units 19:59 04:24 04:24 WBC (3.8-10.6) k/uL RBC (3.80-5.40) m/uL Hct (34.0-46.0) % D-Dimer 0.88 H (<0.60) mg/L FEU Sodium (137-145) mmol/L Carbon Dioxide (22-30) mmol/L BUN (7-17) mg/dL Glucose (74-99) mg/dL POC Glucose (mg/dL) 217 H (75-99) mg/dL Calcium (8.4-10.2) mg/dL Lactate Dehydrogenase 1448 H (313-618) U/L C-Reactive Protein 13.9 H (<10.0) mg/L 08/04/20 08/04/20 08/04/20 Range/Units 04:24 04:24 06:50 WBC 17.1 H (3.8-10.6) k/uL RBC 3.73 L (3.80-5.40) m/uL Hct 33.3 L (34.0-46.0) % D-Dimer (<0.60) mg/L FEU Sodium 136 L (137-145) mmol/L Carbon Dioxide 32 H (22-30) mmol/L BUN 21 H (7-17) mg/dL Glucose 168 H (74-99) mg/dL POC Glucose (mg/dL) 170 H (75-99) mg/dL Calcium 8.0 L (8.4-10.2) mg/dL Lactate Dehydrogenase (313-618) U/L C-Reactive Protein (<10.0) mg/L Microbiology - Last 24 Hours (Table) 07/28/20 03:50 Blood Culture - Final Blood No Growth after 144 hours
--- NOTE | 2020-08-04 10:42 | P.PN ---
Subjective Progress Note Date: 08/04/20 Principal diagnosis: COVID 19 pneumonitis This is a 64-year-old female patient of Dr. Lamin Mcdonough, who presented to the emergency department on July 2020 with one week history of fatigue, body aches, chills, worsening shortness of breath with multiple family members not feeling well with similar symptoms. Apparently patient tested for coronavirus and was found to be negative, in view of significant shortness of breath and hypoxemia with a pulse ox in the low 80s, EMS was called. Of note patient's mother recently passed in this hospital of COVID 19 related complications. Patient's daughter is also hospitalized with COVID 19 symptoms. Chest x-ray showed [id number] patchy rounded interstitial infiltrates throughout mid to lower lungs consistent with COVID 19 pneumonia. White blood cell count is 18.8, hemoglobin is 13, neutrophil count is 16.6, lymphocyte count was 1.4, d-dimer 0.63, electrolytes are within normal limits, BUN is 19 creatin ine 0.5, lactic acid is 1.2, repeat COVID 19 rapid test in the emergency department was again negative. Patient's creatinine 8 L of oxygen pulse ox is 90-95%. The patient is seen today 07/29/2020 in follow-up on the regular medical floor. She is currently awake and alert and she is in mild respiratory distress. Her oxygen requirements have increased overnight. She is currently on 15 L high fl ow nasal cannula initially on a nonrebreather mask. She's currently afebrile. Computed tomography scan of the chest reveals diffuse bilateral airspace disease consistent with CoVID 19 pneumonitis. No evidence of pulmonary embolism. She did receive 1 unit of convalescent plasma. Blood and sputum cultures are pending. She is currently on ceftriaxone and azithromycin along with dexamethasone, Lovenox, vitamin supplements. This is day #2 of Remdesivir. A shunt was reevaluated today on 07/30/2020, patient took a downhill course clinically this morning, continued to desaturate, required higher FiO2, and she is now on 60 L high flow, and 90% FiO2 on airvo. Patient was noted to be dyspneic by the nurse taking care of her. Her oxygen requirement jumped up significantly, hence I recommended transferring the patient to the ICU. Patient is on remdesivir, day #3, and she received 1 unit of convalescent plasma. Patient remains on antibiotics empirically in the form of Rocephin and Zithrom ax, she is also on dexamethasone, Lovenox, and vitamin supplements. On 07/31/2020 patient seen in follow-up in the intensive care unit, she is awake and alert, still requiring quite a bit of oxygen, she is on high flow per Airvo at 60 L and FiO2 of 90% in addition to 100% nonrebreather mask her pulse ox is ranging between 88-90-91%, but seems to be in no acute distress. Blood pressure stable, patient has been afebrile, she is short of breath with any exertion, no chest discomfort. Today's chest x-ray has been reviewed showing bilateral patchy airspace disease persistence, low lung volumes and patient is rotated. Today's labs have been reviewed, showing white blood cell count of 11.9, hem oglobin is 11.3, d-dimer is 0.60, electrolytes and renal profile are unremarkable. Ferritin level is 649, liver enzymes are improving, AST is down to 47, ALT 62, LDH was improving from admission, and was down to 482 on yesterday's labs, CRP is up a bit from yesterday but overall is down compared to admission, pro-calcitonin level is negative at 0.08, patient's Covid 19 antibiotic test came back reactive confirming suspicion for Covid 19 related pneumonitis, Legionella urine antigen was negative, and mycoplasma pneumonia IgG came back elevated and mycoplasma pneumonia IgM was low at 0.61, suggesting exposure to mycoplasma pneumonia infection in the past but no current infection. Blood and sputum cultures have been negative. Patient is status post transfusion with 2 units of convalescent plasma and patient is on day 3 of Remdesivir treatment, she is on high-dose IV steroids with Solu-Medrol 40 mg every 6 hours and Lovenox at 40 mg twice daily On 08/01/2020 patient seen in follow-up in the intensive care unit, she remains on Airvo a 60 L and FiO2 of 90% in addition to 100% nonrebreather mask, and patient still quite hypoxic, and when she removes the nonrebreather mask for mealtimes patient quickly desats down to 79% and has to be placed on the additional oxygen until she recovers her saturation. Currently O2 sat is anywhere between 83 to 90%, afebrile, patient is dyspneic with any little exertion, but appears to be in no acute distress, no completes of chest pain, mild cough, chest x-ray today shows bilateral groundglass opacities, similar to previous exam, with possibly slight interval improvement in aeration. Patient is on day 4 of Remdesivir treatment, she status post revision with 2 units of convalescent immunoglobulin for Covid 19 and she remains on IV steroids with Solu-Medrol 80 mg every 6 hours in addition to vitamins, C, D and zinc, anticoagulation is with Lovenox 40 mg every 12 hours, and d-dimer is currently at 0.64, serum labs have been reviewed, showing white blood cell count 17.5, electrolytes and renal profile are unremarkable. On 08/02/2020 patient seen in follow-up in the intensive care unit, she remains on Airvo at 60 L at FiO2 of 90% in addition to 100% nonrebreather mask, however her sats noted to be better today, and during meals patient's O2 sat did not drop as low, patient is able tolerate breaks from the nonrebreather mask a levar le better. Breathing little better, she's been afebrile, hemodynamically stable, chest x-ray shows bilateral patchy infiltrates, stable in appearance. Patient completed her Remdesivir treatment, she did receive 2 units of convalescent plasma, she remains on IV steroids at 60 mg every 6 hours, sharon mins, and Lovenox at 40 mg every 12 hours. Today's labs have been reviewed, showing blood cell count 17.2, hemoglobin is 11.5, lymphopenia with the lymphocyte count of 0.8, neutrophils at 15.4, d-dimer 0.7, electrolytes are within normal limits, BUN is 19 and creatinine 0.58, d-dimer today is 0.77, CRP is 24.9, no LDH today, patient did receive a few days of antibiotics which were discontinued On 08/03/2020 patient seen in follow-up in the intensive care unit, she remains on Airvo at 60 L and FiO2 of 90% in addition to nonrebreather mask at 100%, and her pulse ox is 93-95%, normal. Does not appear to be in any acute distress, however does have exertional dyspnea. She's been afebrile, hemodynamically she is stable, no altered mentation, she is answering questions appropriately. Chest x-ray today shows bilateral interstitial and patchy airspace disease right greater than left without significant change. Denies any palpitations or chest discomfort, no significant cough. Patient status post 2 units of convalescent plasma, she remains on IV steroids, and she has completed her Remdesivir treatment. He remains on Lovenox at 40 mg every 12 hours, her d-dimer was 0.77. The rest of her lab data was reviewed, showing white blood cell count is 15.7, hemoglobin is 11.4, electrolytes and renal profile were unremarkable. Ferritin level has been trending down, her LDH from a few days ago was 482, and CRP was 24.9 on yesterday's labs. She's had no nausea vomiting or diarrhea. She is tolerating oral intake. On 08/04/2020 patient seen in follow-up in the intensive care unit. She remains on Airvo currently 55% FiO2 of 75%, she is no longer requiring her percent nonrebreather mask in addition to the Airvo. Her pulse ox is 90-94%, she is afebrile, hemodynamically stable, she is on 0.9 normal saline at a rate of 100 ML per hour, she is breathing easier, she seems to be oxygenating better. No new chest x-ray today, on today's labs have been reviewed, white blood cell count is 17.1, hemoglobin is 11.5, d-dimer 0.88, sodium is 136, potassium 3.7, CO2 is 32, BUN is 21 creatinine 0.56, LDH still elevated at 1448, CRP is 13.9. Blood and sputum cultures have been negative. Remains on high-dose IV steroids. Lovenox is at 40 mg every 12 hours. Objective - Vital Signs Vital signs: Vital Signs Temp 98.1 F 08/04/20 08:00 Pulse 73 08/04/20 09:00 Resp 11 L 08/04/20 09:00 BP 158/77 08/04/20 09:00 Pulse Ox 94 L 08/04/20 09:00 Intake & Output 08/03/20 08/04/20 08/04/20 18:59 06:59 18:59 Intake Total 1200 1210 300 Output Total 1800 1600 650 Balance -600 -390 -350 Weight 70.5 kg Intake: IV 1200 1010 300 Sodium Chloride 0.9% 1, 1200 1010 300 000 ml @ 100 mls/hr IV . Q10H [facility] Rx#:[id number] Oral 200 Output: Urine 1800 1600 650 Other: Voiding Method Bedside Commode Bedside Commode Bedside Commode # Bowel Movements 1 1 - Exam GENERAL EXAM: Alert, oriented, 64-year-old female on Airvo at 50 l/min, and Fio2 65%, patient is not requiring 100% nonrebreather mask, today's O2 sat is 90-94%, oxygenating better. HEAD: Normocephalic/atraumatic. EYES: Normal reaction of pupils, equal size. Conjunctiva pink, sclera white. NOSE: Clear with pink turbinates. THROAT: No erythema or exudates. NECK: No masses, no JVD, no thyroid enlargement, no adenopathy. CHEST: No chest wall deformity. Symmetrical expansion. LUNGS: Equal air entry with no crackles, wheeze, rhonchi or dullness. CVS: Regular rate and rhythm, normal S1 and S2, no gallops, no murmurs, no rubs ABDOMEN: Soft, nontender. No hepatosplenomegaly, normal bowel sounds, no guarding or rigidity. EXTREMITIES: No clubbing, no edema, no cyanosis, 2+ pulses and upper and lower extremities. MUSCULOSKELETAL: Muscle strength and tone normal. SPINE: No scoliosis or deformity SKIN: No rashes CENTRAL NERVOUS SYSTEM: Alert and oriented -3. No focal deficits, tone is normal in all 4 extremities. PSYCHIATRIC: Alert and oriented -3. Appropriate affect. Intact judgment and insight. - Labs CBC & Chem 7: 08/04/20 04:24 08/04/20 04:24 Labs: Abnormal Lab Results - Last 24 Hours (Table) 08/03/20 08/03/20 08/03/20 Range/Units 11:35 12:04 17:39 WBC (3.8-10.6) k/uL RBC (3.80-5.40) m/uL Hct (34.0-46.0) % D-Dimer (<0.60) mg/L FEU Sodium (137-145) mmol/L Carbon Dioxide (22-30) mmol/L BUN (7-17) mg/dL Glucose (74-99) mg/dL POC Glucose (mg/dL) 180 H 196 H 231 H (75-99) mg/dL Calcium (8.4-10.2) mg/dL Lactate Dehydrogenase (313-618) U/L C-Reactive Protein (<10.0) mg/L 08/03/20 08/04/20 08/04/20 Range/Units 19:59 04:24 04:24 WBC (3.8-10.6) k/uL RBC (3.80-5.40) m/uL Hct (34.0-46.0) % D-Dimer 0.88 H (<0.60) mg/L FEU Sodium (137-145) mmol/L Carbon Dioxide (22-30) mmol/L BUN (7-17) mg/dL Glucose (74-99) mg/dL POC Glucose (mg/dL) 217 H (75-99) mg/dL Calcium (8.4-10.2) mg/dL Lactate Dehydrogenase 1448 H (313-618) U/L C-Reactive Protein 13.9 H (<10.0) mg/L 08/04/20 08/04/20 08/04/20 Range/Units 04:24 04:24 06:50 WBC 17.1 H (3.8-10.6) k/uL RBC 3.73 L (3.80-5.40) m/uL Hct 33.3 L (34.0-46.0) % D-Dimer (<0.60) mg/L FEU Sodium 136 L (137-145) mmol/L Carbon Dioxide 32 H (22-30) mmol/L BUN 21 H (7-17) mg/dL Glucose 168 H (74-99) mg/dL POC Glucose (mg/dL) 170 H (75-99) mg/dL Calcium 8.0 L (8.4-10.2) mg/dL Lactate Dehydrogenase (313-618) U/L C-Reactive Protein (<10.0) mg/L Microbiology - Last 24 Hours (Table) 07/28/20 03:50 Blood Culture - Final Blood No Growth after 144 hours Assessment and Plan Plan: Assessment: #1. Acute hypoxic respiratory failure, related to COVID 19 related pneumonitis, patient had 3 negative COVID 19 rapid test, however the diagnosis was confirmed with reactive antibiotic test, patient was initiated on Remdesivir on 07/28/2020, and she received 2 units of convalescent plasma on 07/28/2020 and a 07/30/2020. Remains on high flow oxygen per Airvo is 60 L and FiO2 of 95% in addition to 100% nonrebreather mask #2. Possibility of bacterial pneumonia ruled out based on negative pro- calcitonin, negative urine Legionella antigen, and negative mycoplasma IgM #3. History of rheumatoid arthritis, at this time it's unknown if patient has any chronic parenchymal changes from underlying history of rheumatoid arthritis #4. Hypothyroidism #5. Increased inflammatory markers including LDH, and CRP #6. Increased AST and ALT related to viral pneumonia secondary to COVID 19, improving Plan: Continue weaning FiO2, patient seems to be oxygenating better today, breathing easier, roughly we will be able to switch her to regular high flow nasal cannula in the next couple of days. Continue same dose Solu-Medrol, and Lovenox, today's labs have been reviewed, we will obtain follow-up chest x-ray tomorrow, inflammatory markers remain quite elevated, clinically patient seems to be doing better, encourage oral intake, continue supportive treatment. I performed a history & physical examination of the patient and discussed their management with my nurse practitioner, Lilly Green. I reviewed the nurse practitioner's note and agree with the documented findings and plan of care. Lung sounds are positive for diminished breath soudns, and yusuf crackles. The findings and the impression was discussed with the patient. I attest to the documentation by the nurse practitioner. Time with Patient: Greater than 30
[2020-08-04 12:03] LABS: Glucose,Whole Blood 211 mg/dL (75-99)
[2020-08-04 12:19] VITALS: BMI 27.5
[2020-08-04 16:37] LABS: LD Isoenzymes 1 11 % (19-38); LD Isoenzymes 2 29 % (30-43); LD Isoenzymes 3 31 % (16-26); LD Isoenzymes 4 15 % (3-12); LD Isoenzymes 5 14 % (3-14); Lactacte Dehydrogenase(LD) ISO 458 U/L (120-250)
[2020-08-04 17:03] LABS: Glucose,Whole Blood 157 mg/dL (75-99)
[2020-08-04 20:06] LABS: Glucose,Whole Blood 274 mg/dL (75-99)
[2020-08-05 05:07] LABS: HCT 32.3 % (34.0-46.0); HGB 11.2 gm/dL (11.4-16.0); MCH 30.6 pg (25.0-35.0); MCHC 34.7 g/dL (31.0-37.0); MCV 88.1 fL (80.0-100.0); Mean Platelet Volume 7.5; Platelet Count 376 k/uL (150-450); RBC 3.66 m/uL (3.80-5.40); RDW 13.1 % (11.5-15.5); WBC 17.9 k/uL (3.8-10.6)
[2020-08-05 05:17] LABS: African American GFR (CKD) >90 (>60 ml/min/1.73 sqM); Anion Gap 3 mmol/L; Blood Urea Nitrogen 20 mg/dL (7-17); Calcium 8.3 mg/dL (8.4-10.2); Carbon Dioxide 31 mmol/L (22-30); Chloride 103 mmol/L (98-107); Glucose 163 mg/dL (74-99); Non-African American GFR(CKD) >90 (>60 ml/min/1.73 sqM); Potassium 3.5 mmol/L (3.5-5.1); Sodium 137 mmol/L (137-145)
[2020-08-05] MEDS: POTASSIUM CHLORIDE ER 20 MEQ TAB.ER PO SCH ×2 (06:13→06:55)
[2020-08-05] MEDS: PANTOPRAZOLE 40 MG TABLET PO SCH (06:14)
[2020-08-05] MEDS: LEVOTHYROXINE 75 MCG TAB PO SCH (06:14)
[2020-08-05] MEDS: methylPREDNISolone SOD SUCCI 125 MG/2 ML VIAL IV SCH ×3 (06:16→17:33)
[2020-08-05 06:28] LABS: Glucose,Whole Blood 145 mg/dL (75-99)
[2020-08-05] MEDS: INSULIN ASPART (NovoLOG) 100 UNIT/ML VIAL SQ SCH ×8 (06:55→20:00)
[2020-08-05] MEDS ORDERED: INSULIN DETEMIR (LEVEMIR) 100 UNIT/ML SYR SQ SCH (07:00)
--- NOTE | 2020-08-05 07:44 | XR ---
EXAMINATION TYPE: XR chest 1V portable DATE OF EXAM: 08/05/2020 COMPARISON: Prior chest x-ray 08/03/2020 HISTORY: ICU management, abnormal chest x-ray and Covid pneumonia TECHNIQUE: Single frontal view of the chest is obtained. FINDINGS: There is no pneumothorax or pleural effusion. Cardiac mediastinal silhouette, pulmonary va scularity and marcos are stable. Patchy bilateral airspace disease persists. There are overlying cardia c leads. IMPRESSION: Findings similar to prior exam. Findings consistent with patient's history of pneumonia.
[2020-08-05] MEDS: ALBUTEROL HFA INHALER INHALATION SCH ×4 (07:54→20:08)
[2020-08-05] MEDS: ENOXAPARIN 40 MG/0.4 ML SYRINGE SQ SCH ×2 (09:54→20:00)
[2020-08-05] MEDS: ZINC SULFATE 220 MG CAP PO SCH (09:54)
[2020-08-05] MEDS: CHOLECALCIFEROL 1,000 UNIT TAB PO SCH (09:54)
[2020-08-05] MEDS: NYSTATIN 100,000 UNIT/ML SUSP 500,000 UNIT/5 ML CUP PO SCH ×4 (09:54→20:00)
[2020-08-05] MEDS: ASCORBIC ACID 500 MG TAB PO SCH (09:54)
--- NOTE | 2020-08-05 10:14 | P.PN ---
Subjective Progress Note Date: 08/05/20 HISTORY OF PRESENT ILLNESS This is a 64-year-old female patient of Dr. Mcdonough with a past medical history of hypothyroidism, rheumatoid arthritis. Patient was recently exposed to her mother with Covid 19. Mother last day had had stated her home. She now complains of cough and shortness of breath. She denies having any fever. Patient presented to [facility] emergency center for evaluation. She is found to be afebrile, heart rate 90, blood pressure 142/76, pulse ox 81% on room air. WBC 18.8, d-dimer 0.63, blood sugar 171. AST 94, ALT 126. LDH 1234. CK 36. Troponin negative. C-reactive protein 186.8. ProBNP 128. COVID-19 nondetected. Chest x-ray reveals moderate to severe. She rounded interstitial infiltrates throughout the mid and lower lungs bilaterally consistent with Covid 19 pneumonia inhalers, Lovenox, consult requested with pulmonary medicine [facility]. 07/29: The patient is now requiring nonrebreather and high flow nasal cannula 15 L with pulse ox of 95%. She has been afebrile, heart rate 68, blood pressure 121/72. She has been started on Remdesivir, day 2/5. Blood cultures are showing no growth at 24 hours. She continues to have a cough and cough with deep breathing. She denies chest pain or abdominal pain. Lovenox increase to twice daily. CAT scan angiogram of the chest ordered to rule out pulmonary embolism. This revealed diffuse bilateral airspace disease correlate for diffuse pneumonia or ARDS. No central pulmonary embolism distal branches are limited. 07/30: Patient is on day #3/5 on Remdesivir. She is status post convalescent plasma transfusion. The patient was transitioned to AirVo yesterday currently pulse oxing in the mid 80s on FiO2 90, flow rate of 60. Patient is to be transferred to the intensive care unit. Patient is complaining of shortness of breath as well as chest feeling tight and dry. Patient denies having any nausea, vomiting, diarrhea or abdominal pain. She's been afebrile, heart rate 65, blood pressure 143/58. D-dimer 0.63. Legionella negative. Sputum culture is in process. WBC 15, hemoglobin 12.2, platelet count 309, lymphocytes 0.8. Electrolytes normal, creatinine 0.5. Total bilirubin 0.4, AST 63, ALT 68, alkaline phosphatase 109. LDH 482. C-reactive protein 12.8. Troponin 1 negative. Mycoplasma testing is in process. Discussed CODE STATUS the patient wishes to BE a full code. 07/31: Patient is seen today in the intensive care unit. She is on both nonrebreather and high flow nasal cannula pulse oxing 90%. Repeat chest x-ray reveals correlate for pneumonia. No respiratory distress noted at the time of the valve. She has been afebrile WBC 11.9, hemoglobin 11.3, d-dimer 0.6. Electrolytes and renal function normal. Ferritin 649. AST 47, ALT 62, LDH improving to 482. Pro-calcitonin 0.08. Antibiotics discontinued. Covid 19 antibody test came back reactive. Mycoplasma pneumoniae IgG elevated and IgM low at 0.61. Patient is now transfused 2 units of convalescent plasma. She is on day 10/23 of Remdesivir. Dexamethasone was transitioned Solu-Medrol. 08/01: Patient remains in the intensive care unit. She is currently on airflow and a nonrebreather. Pulse ox drops into the 70s when she tries to eat with Arava 1 only. At rest she can maintain pulse ox of 90%. She has been afebrile, heart rate 72, respiratory rate 32, pulse ox 89%. WBC 17.5, lymphocytes are 0.9. D-dimer 0.64. Creatinine 0.54. Blood sugars running in the 200s up to 327. Total bilirubin 0.4, AST 40, ALT 59, alkaline phosphatase 111. Peritoneal 514.5. C-reactive protein 40.8. Sputum culture finalized with normal ozzy. Patient's son Henry ([phone]) is requesting the patient be transferred to [facility]. Patient herself will do what ever family wishes for her. Patient is not progressing but no worsening either be stable today. Do not anticipate [place] transfer. route service manager is working with [place] at this time. Patient is on Remdesivir day #5. 08/02: Patient remains in the intensive care unit and pulse ox is 88-90% on Arava plus nonrebreather. She has been afebrile, heart rate 73, respiratory rate 29, blood pressure 134/65. WBC 17.2. D-dimer 0.77. Creatinine 0.58. Blood sugars running between 185 and 249. Ferritin 453.9. ALT 54. C-reactive protein 24.9. Scheduled NovoLog added to scale. 08/03: Patient remains in the intensive care unit and since she is feeling better. She is currently on airflow and nonrebreather at night with pulse ox is 94%. She is on airflow only during the day. Patient continues to have hyperglycemia for which NovoLog increased to 10 units scheduled and Levemir added. Patient is afebrile, heart rate 73, blood pressure 136/68. WBC 15.7, hemoglobin 11.4. Sodium 136, BUN 19 and creatinine 0.53. Blood sugars running between 199 at 306. Patient is laying on her sides which is close to she can get to proning. monitoring manager sinus rhythm. 08/04: Patient remains in the intensive care unit. Her respiratory status is slowly improving. She is now pulse oxing 90-94% with FiO2 of 65 and flow rate 50 which is down from 65%. She's been afebrile, heart rate 73, blood pressure 150/77. monitoring manager is sinus rhythm. Patient is eating very well. Patient is scheduled for midline insertion today. Blood sugars remain elevated 178-231 and Levemir increased to 10 units in the morning and scheduled NovoLog to 7 units. Other lab work reveals WBC 17.1. D-dimer 0.88. BUN 21 and creatinine 0.46. C-reactive protein 13.9. LDH 1448. 08/05: Patient remains in the intensive care unit. Her respiration status continues to show improvement. She is found sitting in a chair with 12 L high flow nasal cannula O2. She has been afebrile, heart rate 63, blood pressure 161/77, respirations 18 nonlabored, pulse oxing 92% on high flow at 12 L. Blood sugars remain elevated in the 200s. We will increase Levemir to 15 units in the morning and NovoLog to 10 units 3 times a day. WBC 17.9, hemoglobin 11.2, platelets 376, potassium 3.5, carbon dioxide 31, BUN 20, creatinine 0.55 REVIEW OF SYSTEMS Constitutional: No fever, no chills, no night sweats. Reports weakness, reports fatigue. No daytime sleepiness. EENT: No headache. No blurred vision or double vision, no loss of vision. No loss of Hearing, no ringing in the ears, no dizziness. No nasal drainage or congestion. No epistaxis. No sore throat. Lungs: Reports continued shortness of breath, Reports cough, no sputum production. No wheezing. Cardiovascular: Reports chest pain, no lower extremity edema. No palpitations. No paroxysmal nocturnal dyspnea. No orthopnea. No lightheadedness or dizziness. No syncopal episodes. Abdominal: No abdominal pain. No nausea, vomiting. No diarrhea. No constipation. No bloody or tarry stools. Good appetite. Genitourinary: No dysuria, increased frequency, urgency. No urinary retention. Musculoskeletal: No myalgias. No muscle weakness, no gait dysfunction, no frequent falls. No back pain. No neck pain. Integumentary: No wounds, no lesions. No rash or pruritus. Neurologic: No aphasia. No facial droop. No change in mentation. No head injury. No headache. No paralysis. No paresthesia. Psychiatric: No depression. No anxiety. Endocrine: Elevated blood sugars. PHYSICAL EXAMINATION Gen: This is a 64-year-old female. She is in today sitting in chair appears comfortable while at rest. HEENT: Head is atraumatic, normocephalic. Pupils equal, round. Sclerae is anicteric. NECK: Supple. No JVD. No lymphadenopathy. No thyromegaly. LUNGS: Fine crackles bilaterally throughout. No wheezing. HEART: Regular rate and rhythm. No murmur. ABDOMEN: Soft. Bowel sounds are present. No masses. No tenderness. EXTREMITIES: No pedal edema. No calf tenderness. NEUROLOGICAL: Patient is awake, alert and oriented x3. Cranial nerves 2 through 12 are grossly intact. ASSESSMENT AND PLAN 1. Acute hypoxic respiratory failure secondary to Covid 19 pneumonia. Pulmonary medicine consult appreciated. Covid 19 antibody test positive. Patient on Remdesivir day 11/22, status post 2 unit convalescent plasma. Continue albuterol inhaler, vitamin supplements, IV Solu-Medrol, Lovenox 40 mg twice daily. Continue oxygen therapy. She is currently on AirVo and on rebreather. 2. Acute bilateral pneumonia, Covid 19 pneumonia, possible bacterial pneumonia. 3. Elevated inflammatory markers consistent with Covid 19 pneumonia. 4. Rheumatoid arthritis. 5. Hypothyroidism. Continue levothyroxine 75 g daily. 6. GI prophylaxis. Protonix. 7. DVT prophylaxis. Lovenox. 8. Hyperglycemia secondary to steroids. Continue NovoLog scale plus scheduled NovoLog 10 units with meals and at bedtime and Levemir creased to 15 units daily. DISCHARGE PLAN Most likely return home, to be determined. Impression and plan of care have been directed as dictated by the signing physician. Sharmila Coleman nurse practitioner acting as scribe for signing physician. Objective - Vital Signs Vital signs: Vital Signs Temp 98.2 F 08/05/20 04:00 Pulse 63 08/05/20 07:00 Resp 18 08/05/20 07:00 BP 161/77 08/05/20 07:00 Pulse Ox 92 L 08/05/20 07:54 Intake & Output 08/04/20 08/05/20 08/05/20 18:59 06:59 18:59 Intake Total 1200 1200 100 Output Total 2350 1900 0 Balance -1150 -700 100 Weight 70.5 kg 71.2 kg Intake: IV 1200 1200 100 Sodium Chloride 0.9% 1, 1200 1200 100 000 ml @ 100 mls/hr IV . Q10H LOAN Rx#:[id number] Output: Urine 2350 1900 0 Other: Voiding Method Bedside Commode Bedside Commode # Voids 1 # Bowel Movements 1 1 - Labs CBC & Chem 7: 08/05/20 04:45 08/05/20 04:45 Labs: Abnormal Lab Results - Last 24 Hours (Table) 07/30/20 07/31/20 08/04/20 Range/Units 11:00 03:32 12:01 WBC (3.8-10.6) k/uL RBC (3.80-5.40) m/uL Hgb (11.4-16.0) gm/dL Hct (34.0-46.0) % Carbon Dioxide (22-30) mmol/L BUN (7-17) mg/dL Glucose (74-99) mg/dL POC Glucose (mg/dL) 211 H (75-99) mg/dL Calcium (8.4-10.2) mg/dL LD Isoenzymes 456 H 458 H (120-250) U/L LD 1 12 L 11 L (19-38) % LD 2 29 L (30-43) % LD 3 31 H 31 H (16-26) % LD 4 15 H 15 H (3-12) % 08/04/20 08/04/20 08/05/20 Range/Units 17:02 20:05 04:45 WBC 17.9 H (3.8-10.6) k/uL RBC 3.66 L (3.80-5.40) m/uL Hgb 11.2 L (11.4-16.0) gm/dL Hct 32.3 L (34.0-46.0) % Carbon Dioxide (22-30) mmol/L BUN (7-17) mg/dL Glucose (74-99) mg/dL POC Glucose (mg/dL) 157 H 274 H (75-99) mg/dL Calcium (8.4-10.2) mg/dL LD Isoenzymes (120-250) U/L LD 1 (19-38) % LD 2 (30-43) % LD 3 (16-26) % LD 4 (3-12) % 08/05/20 08/05/20 Range/Units 04:45 06:27 WBC (3.8-10.6) k/uL RBC (3.80-5.40) m/uL Hgb (11.4-16.0) gm/dL Hct (34.0-46.0) % Carbon Dioxide 31 H (22-30) mmol/L BUN 20 H (7-17) mg/dL Glucose 163 H (74-99) mg/dL POC Glucose (mg/dL) 145 H (75-99) mg/dL Calcium 8.3 L (8.4-10.2) mg/dL LD Isoenzymes (120-250) U/L LD 1 (19-38) % LD 2 (30-43) % LD 3 (16-26) % LD 4 (3-12) %
--- NOTE | 2020-08-05 12:05 | P.PN ---
Subjective Progress Note Date: 08/05/20 Principal diagnosis: Acute hypoxic respiratory failure suspect CoVID 19 related pneumonia The patient is seen today 08/05/2020 follow-up in the intensive care unit. She was originally admitted back on 07/28/2020 for Covid 19 pneumonitis. She deteriorated with subsequent transfer to the intensive care unit on the morning of 07/30/2020. She had initially been on high flow oxygen per the AirVo device in addition to a nonrebreather. She is currently awake and alert in no acute distress. Sitting up in a chair at the bedside. She is on 15 L high flow nasal cannula. 0.9 normal saline at 100 ML's per hour. She is doing better today compared to yesterday. She has completed her Remdesivir. Received convalescent plasma 2. Remains on high-dose Solu-Medrol. Lovenox 40 mg subcu every 12 hours. Continued on vitamin supplements. Chest x-ray reveals patchy bilateral airspace disease consistent with Covid 19 pneumonia. No significant change. Blood cultures reveal no growth. Sputum culture reveals no growth. White count 17.9. Hemoglobin 11.2. Sodium 137. Potassium 3.5. Creatinine 0.55. Last d- dimer 0.88. Objective - Vital Signs Vital signs: Vital Signs Temp 97.7 F 08/05/20 08:00 Pulse 81 08/05/20 11:00 Resp 29 H 08/05/20 11:00 BP 143/72 08/05/20 11:00 Pulse Ox 90 L 08/05/20 11:00 Intake & Output 08/04/20 08/05/20 08/05/20 18:59 06:59 18:59 Intake Total 1200 1200 1000 Output Total 2350 1900 1000 Balance -1150 -700 0 Weight 70.5 kg 71.2 kg Intake: IV 1200 1200 500 Sodium Chloride 0.9% 1, 1200 1200 500 000 ml @ 100 mls/hr IV . Q10H LOAN Rx#:[id number] Oral 500 Output: Urine 2350 1900 1000 Other: Voiding Method Bedside Commode Bedside Commode Bedside Commode # Voids 1 # Bowel Movements 1 1 1 - Exam GENERAL EXAM: Alert, very pleasant 64-year-old female patient on 15 L high flow nasal cannula with O2 saturation 90% in mild respiratory distress. HEAD: Normocephalic. EYES: Normal reaction of pupils, equal size. NOSE: Clear with pink turbinates. THROAT: No erythema or exudates. NECK: No masses, no JVD. CHEST: No chest wall deformity. LUNGS: Equal air entry with bibasilar coarse crackles. CVS: S1 and S2 normal with no audible murmur, regular rhythm. ABDOMEN: No hepatosplenomegaly, normal bowel sounds, no guarding or rigidity. SPINE: No scoliosis or deformity SKIN: No rashes CENTRAL NERVOUS SYSTEM: No focal deficits, tone is normal in all 4 extremities. EXTREMITIES: There is no peripheral edema. No clubbing, no cyanosis. Peripheral pulses are intact. - Labs CBC & Chem 7: 08/05/20 04:45 08/05/20 04:45 Labs: Abnormal Lab Results - Last 24 Hours (Table) 07/30/20 07/31/20 08/04/20 Range/Units 11:00 03:32 12:01 WBC (3.8-10.6) k/uL RBC (3.80-5.40) m/uL Hgb (11.4-16.0) gm/dL Hct (34.0-46.0) % Carbon Dioxide (22-30) mmol/L BUN (7-17) mg/dL Glucose (74-99) mg/dL POC Glucose (mg/dL) 211 H (75-99) mg/dL Calcium (8.4-10.2) mg/dL LD Isoenzymes 456 H 458 H (120-250) U/L LD 1 12 L 11 L (19-38) % LD 2 29 L (30-43) % LD 3 31 H 31 H (16-26) % LD 4 15 H 15 H (3-12) % 08/04/20 08/04/20 08/05/20 Range/Units 17:02 20:05 04:45 WBC 17.9 H (3.8-10.6) k/uL RBC 3.66 L (3.80-5.40) m/uL Hgb 11.2 L (11.4-16.0) gm/dL Hct 32.3 L (34.0-46.0) % Carbon Dioxide (22-30) mmol/L BUN (7-17) mg/dL Glucose (74-99) mg/dL POC Glucose (mg/dL) 157 H 274 H (75-99) mg/dL Calcium (8.4-10.2) mg/dL LD Isoenzymes (120-250) U/L LD 1 (19-38) % LD 2 (30-43) % LD 3 (16-26) % LD 4 (3-12) % 08/05/20 08/05/20 Range/Units 04:45 06:27 WBC (3.8-10.6) k/uL RBC (3.80-5.40) m/uL Hgb (11.4-16.0) gm/dL Hct (34.0-46.0) % Carbon Dioxide 31 H (22-30) mmol/L BUN 20 H (7-17) mg/dL Glucose 163 H (74-99) mg/dL POC Glucose (mg/dL) 145 H (75-99) mg/dL Calcium 8.3 L (8.4-10.2) mg/dL LD Isoenzymes (120-250) U/L LD 1 (19-38) % LD 2 (30-43) % LD 3 (16-26) % LD 4 (3-12) % Assessment and Plan Assessment: 1 Acute hypoxic respiratory failure, consider possibility of COVID 19 related pneumonia, although patient tested negative twice on outpatient and in the emergency department using that rapid COVID 19 test. In view of her recent history of exposure to her COVID 19 positive mother, who had from complications related to COVID 19, and her COVID 19 antibody test was reactive, she treated with Remdesivir, dexamethasone, convalescent plasma x 2, and prophylactic anticoagulation. Ruled out possibility of influenza infection. Computed tomography scan of the chest reveals significant diffuse bilateral airspace disease correlate for diffuse pneumonia versus ARDS 2 Possibility of bacterial pneumonia is also being considered, Legionella urine antigen, mycoplasma pneumonia antibody IgM and IgA, pro-calcitonin level, results negative and currently not on antibiotics 3 History of rheumatoid arthritis, at this time it's unknown if patient has any chronic parenchymal changes from underlying history of rheumatoid arthritis 4 Hypothyroidism 5 Increased inflammatory markers including LDH, and CRP 6 Increased AST and ALT possibility of viral or bacterial pneumonia Plan: The patient was seen and evaluated by Dr. Mena Continue the current treatment plan Titrate down the FiO2 as tolerated Increase her activity as tolerated We will continue to follow and make further recommendations based on her clinical status. I, the cosigning physician, performed a history & physical examination of the patient. Lungs sounds with bibasilar crackles. Maintaining good O2 saturations in the 90s on 15 L high flow oxygen. I discussed the assessment and plan of care with my nurse practitioner, Mildred Cazares. I attest to the above note as dictated by her. Time with Patient: Greater than 30
[2020-08-05 12:17] LABS: Glucose,Whole Blood 261 mg/dL (75-99)
[2020-08-05 17:10] LABS: Glucose,Whole Blood 236 mg/dL (75-99)
[2020-08-05] MEDS: SODIUM CHLORIDE 0.9% 1,000 ML IV SCH ×2 (17:34→21:00)
[2020-08-05 19:55] LABS: Glucose,Whole Blood 206 mg/dL (75-99)
[2020-08-05 22:40] LABS: LD Isoenzymes 1 12 % (19-38); LD Isoenzymes 2 32 % (30-43); LD Isoenzymes 3 30 % (16-26); LD Isoenzymes 4 13 % (3-12); LD Isoenzymes 5 13 % (3-14); Lactacte Dehydrogenase(LD) ISO 490 U/L (120-250)
[2020-08-05 22:40] LABS: LD Isoenzymes 1 12 % (19-38); LD Isoenzymes 2 28 % (30-43); LD Isoenzymes 3 28 % (16-26); LD Isoenzymes 4 14 % (3-12); LD Isoenzymes 5 18 % (3-14); Lactacte Dehydrogenase(LD) ISO 532 U/L (120-250)
[2020-08-06] MEDS: methylPREDNISolone SOD SUCCI 125 MG/2 ML VIAL IV SCH ×4 (00:01→18:05)
[2020-08-06] MEDS: BENZOCAINE/MENTHOL LOZENG 1 EACH LOZENGE MUCOUS MEM PRN (04:01)
[2020-08-06 04:09] LABS: Basophils % (A) 0 %; Eosinophils % (A) 0 %; HCT 36.4 % (34.0-46.0); HGB 11.9 gm/dL (11.4-16.0); Lymphocytes # (A) 0.5 k/uL (1.0-4.8); Lymphocytes % (A) 3 %; MCH 29.3 pg (25.0-35.0); MCHC 32.6 g/dL (31.0-37.0); MCV 89.7 fL (80.0-100.0); Mean Platelet Volume 7.3; Monocytes # (A) 0.4 k/uL (0-1.0); Monocytes % (A) 2 %; Neutrophils % (A) 95 %; Platelet Count 394 k/uL (150-450); RBC 4.06 m/uL (3.80-5.40); RDW 13.4 % (11.5-15.5)
[2020-08-06 04:21] LABS: African American GFR (CKD) >90 (>60 ml/min/1.73 sqM); Anion Gap 4 mmol/L; Blood Urea Nitrogen 21 mg/dL (7-17); C Reactive Protein 5.1 mg/L (<10.0); Calcium 8.5 mg/dL (8.4-10.2); Carbon Dioxide 31 mmol/L (22-30); Chloride 102 mmol/L (98-107); Glucose 139 mg/dL (74-99); LDH 1149 U/L (313-618); Non-African American GFR(CKD) >90 (>60 ml/min/1.73 sqM); Potassium 3.8 mmol/L (3.5-5.1); Sodium 137 mmol/L (137-145)
[2020-08-06 04:25] LABS: D-Dimer 0.61 mg/L FEU (<0.60)
[2020-08-06] MEDS ORDERED: POTASSIUM CHLORIDE ER 20 MEQ TAB.ER PO SCH (06:30)
[2020-08-06] MEDS: PANTOPRAZOLE 40 MG TABLET PO SCH (06:40)
[2020-08-06] MEDS: LEVOTHYROXINE 75 MCG TAB PO SCH (06:41)
[2020-08-06 06:47] LABS: Glucose,Whole Blood 154 mg/dL (75-99)
[2020-08-06] MEDS: INSULIN DETEMIR (LEVEMIR) 100 UNIT/ML SYR SQ SCH (06:52)
[2020-08-06] MEDS: INSULIN ASPART (NovoLOG) 100 UNIT/ML VIAL SQ SCH ×8 (06:52→21:01)
--- NOTE | 2020-08-06 08:12 | XR ---
EXAMINATION TYPE: XR chest 1V portable DATE OF EXAM: 08/06/2020 COMPARISON: Chest x-ray 08/05/2020 HISTORY: ICU management, abnormal chest x-ray TECHNIQUE: Single frontal view of the chest is obtained. FINDINGS: Patchy bilateral airspace disease shows a similar appearance, there is persistent elevatio n of right hemidiaphragm. Cardiac mediastinal silhouette is stable. No pneumothorax or pleural effusi on. IMPRESSION: Correlate for pneumonia, edema
[2020-08-06] MEDS: ALBUTEROL HFA INHALER INHALATION SCH ×4 (08:24→20:51)
[2020-08-06] MEDS: ENOXAPARIN 40 MG/0.4 ML SYRINGE SQ SCH ×2 (08:43→21:01)
[2020-08-06] MEDS: ZINC SULFATE 220 MG CAP PO SCH (08:44)
[2020-08-06] MEDS: NYSTATIN 100,000 UNIT/ML SUSP 500,000 UNIT/5 ML CUP PO SCH ×4 (08:44→21:01)
[2020-08-06] MEDS: ASCORBIC ACID 500 MG TAB PO SCH (08:44)
[2020-08-06] MEDS: CHOLECALCIFEROL 1,000 UNIT TAB PO SCH (08:44)
[2020-08-06] MEDS: SODIUM CHLORIDE 0.9% 1,000 ML IV SCH (08:45)
[2020-08-06 09:44] LABS: Ferritin 349.8 ng/mL (10.0-291.0)
--- NOTE | 2020-08-06 10:17 | P.PN ---
Subjective Progress Note Date: 08/06/20 HISTORY OF PRESENT ILLNESS This is a 64-year-old female patient of Dr. Mcdonough with a past medical history of hypothyroidism, rheumatoid arthritis. Patient was recently exposed to her mother with Covid 19. Mother last day had had stated her home. She now complains of cough and shortness of breath. She denies having any fever. Patient presented to [facility] emergency center for evaluation. She is found to be afebrile, heart rate 90, blood pressure 142/76, pulse ox 81% on room air. WBC 18.8, d-dimer 0.63, blood sugar 171. AST 94, ALT 126. LDH 1234. CK 36. Troponin negative. C-reactive protein 186.8. ProBNP 128. COVID-19 nondetected. Chest x-ray reveals moderate to severe. She rounded interstitial infiltrates throughout the mid and lower lungs bilaterally consistent with Covid 19 pneumonia inhalers, Lovenox, consult requested with pulmonary medicine [facility]. 07/29: The patient is now requiring nonrebreather and high flow nasal cannula 15 L with pulse ox of 95%. She has been afebrile, heart rate 68, blood pressure 121/72. She has been started on Remdesivir, day 2/5. Blood cultures are showing no growth at 24 hours. She continues to have a cough and cough with deep breathing. She denies chest pain or abdominal pain. Lovenox increase to twice daily. CAT scan angiogram of the chest ordered to rule out pulmonary embolism. This revealed diffuse bilateral airspace disease correlate for diffuse pneumonia or ARDS. No central pulmonary embolism distal branches are limited. 07/30: Patient is on day #3/5 on Remdesivir. She is status post convalescent plasma transfusion. The patient was transitioned to AirVo yesterday currently pulse oxing in the mid 80s on FiO2 90, flow rate of 60. Patient is to be transferred to the intensive care unit. Patient is complaining of shortness of breath as well as chest feeling tight and dry. Patient denies having any nausea, vomiting, diarrhea or abdominal pain. She's been afebrile, heart rate 65, blood pressure 143/58. D-dimer 0.63. Legionella negative. Sputum culture is in process. WBC 15, hemoglobin 12.2, platelet count 309, lymphocytes 0.8. Electrolytes normal, creatinine 0.5. Total bilirubin 0.4, AST 63, ALT 68, alkaline phosphatase 109. LDH 482. C-reactive protein 12.8. Troponin 1 negative. Mycoplasma testing is in process. Discussed CODE STATUS the patient wishes to BE a full code. 07/31: Patient is seen today in the intensive care unit. She is on both nonrebreather and high flow nasal cannula pulse oxing 90%. Repeat chest x-ray reveals correlate for pneumonia. No respiratory distress noted at the time of the valve. She has been afebrile WBC 11.9, hemoglobin 11.3, d-dimer 0.6. Electrolytes and renal function normal. Ferritin 649. AST 47, ALT 62, LDH improving to 482. Pro-calcitonin 0.08. Antibiotics discontinued. Covid 19 antibody test came back reactive. Mycoplasma pneumoniae IgG elevated and IgM low at 0.61. Patient is now transfused 2 units of convalescent plasma. She is on day 10/23 of Remdesivir. Dexamethasone was transitioned Solu-Medrol. 08/01: Patient remains in the intensive care unit. She is currently on airflow and a nonrebreather. Pulse ox drops into the 70s when she tries to eat with Arava 1 only. At rest she can maintain pulse ox of 90%. She has been afebrile, heart rate 72, respiratory rate 32, pulse ox 89%. WBC 17.5, lymphocytes are 0.9. D-dimer 0.64. Creatinine 0.54. Blood sugars running in the 200s up to 327. Total bilirubin 0.4, AST 40, ALT 59, alkaline phosphatase 111. Peritoneal 514.5. C-reactive protein 40.8. Sputum culture finalized with normal ozzy. Patient's son Henry ([phone]) is requesting the patient be transferred to [facility]. Patient herself will do what ever family wishes for her. Patient is not progressing but no worsening either be stable today. Do not anticipate [place] transfer. retail marketing manager is working with [place] at this time. Patient is on Remdesivir day #5. 08/02: Patient remains in the intensive care unit and pulse ox is 88-90% on Arava plus nonrebreather. She has been afebrile, heart rate 73, respiratory rate 29, blood pressure 134/65. WBC 17.2. D-dimer 0.77. Creatinine 0.58. Blood sugars running between 185 and 249. Ferritin 453.9. ALT 54. C-reactive protein 24.9. Scheduled NovoLog added to scale. 08/03: Patient remains in the intensive care unit and since she is feeling better. She is currently on airflow and nonrebreather at night with pulse ox is 94%. She is on airflow only during the day. Patient continues to have hyperglycemia for which NovoLog increased to 10 units scheduled and Levemir added. Patient is afebrile, heart rate 73, blood pressure 136/68. WBC 15.7, hemoglobin 11.4. Sodium 136, BUN 19 and creatinine 0.53. Blood sugars running between 199 at 306. Patient is laying on her sides which is close to she can get to proning. wallpaper inspector sinus rhythm. 08/04: Patient remains in the intensive care unit. Her respiratory status is slowly improving. She is now pulse oxing 90-94% with FiO2 of 65 and flow rate 50 which is down from 65%. She's been afebrile, heart rate 73, blood pressure 150/77. wallpaper inspector is sinus rhythm. Patient is eating very well. Patient is scheduled for midline insertion today. Blood sugars remain elevated 178-231 and Levemir increased to 10 units in the morning and scheduled NovoLog to 7 units. Other lab work reveals WBC 17.1. D-dimer 0.88. BUN 21 and creatinine 0.46. C-reactive protein 13.9. LDH 1448. 08/05: Patient remains in the intensive care unit. Her respiration status continues to show improvement. She is found sitting in a chair with 12 L high flow nasal cannula O2. She has been afebrile, heart rate 63, blood pressure 161/77, respirations 18 nonlabored, pulse oxing 92% on high flow at 12 L. Blood sugars remain elevated in the 200s. We will increase Levemir to 15 units in the morning and NovoLog to 10 units 3 times a day. WBC 17.9, hemoglobin 11.2, platelets 376, potassium 3.5, carbon dioxide 31, BUN 20, creatinine 0.55 08/06: Patient remains in the intensive care unit. She is found sitting up in chair. Her respiration status continues to show improvement. She is currently at 10 L of high flow nasal cannula O2. Her pulse ox is between 93 and 94%. Blood sugars have been well managed with the change to the Levemir and NovoLog. Patient remains afebrile, respirations 28, blood pressure 135/91, pulse ox 94% on high flow O2 at 10L. WBC 18.0, hemoglobin 11.9, d-dimer 0.61, carbon dioxide 31, BUN 21, creatinine 0.49, C-reactive protein 5.1, CK-MB 0.8 REVIEW OF SYSTEMS Constitutional: No fever, no chills, no night sweats. Reports weakness, reports fatigue. No daytime sleepiness. EENT: No headache. No blurred vision or double vision, no loss of vision. No loss of Hearing, no ringing in the ears, no dizziness. No nasal drainage or congestion. No epistaxis. No sore throat. Lungs: Reports continued shortness of breath, Reports cough, no sputum production. No wheezing. Cardiovascular: Reports chest pain, no lower extremity edema. No palpitations. No paroxysmal nocturnal dyspnea. No orthopnea. No lightheadedness or dizz iness. No syncopal episodes. Abdominal: No abdominal pain. No nausea, vomiting. No diarrhea. No constipation. No bloody or tarry stools. Good appetite. Genitourinary: No dysuria, increased frequency, urgency. No urinary retention. Musculoskeletal: No myalgias. No muscle weakness, no gait dysfunction, no frequent falls. No back pain. No neck pain. Integumentary: No wounds, no lesions. No rash or pruritus. Neurologic: No aphasia. No facial droop. No change in mentation. No head injury. No headache. No paralysis. No paresthesia. Psychiatric: No depression. No anxiety. Endocrine: Elevated blood sugars. PHYSICAL EXAMINATION Gen: This is a 64-year-old female. She is in today sitting in chair appears comfortable while at rest. HEENT: Head is atraumatic, normocephalic. Pupils equal, round. Sclerae is anicteric. NECK: Supple. No JVD. No lymphadenopathy. No thyromegaly. LUNGS: Fine crackles bilaterally throughout. No wheezing. HEART: Regular rate and rhythm. No murmur. ABDOMEN: Soft. Bowel sounds are present. No masses. No tenderness. EXTREMITIES: No pedal edema. No calf tenderness. NEUROLOGICAL: Patient is awake, alert and oriented x3. Cranial nerves 2 through 12 are grossly intact. ASSESSMENT AND PLAN 1. Acute hypoxic respiratory failure secondary to Covid 19 pneumonia. Pulmonary medicine consult appreciated. Covid 19 antibody test positive. Patient on Remdesivir day 11/22, status post 2 unit convalescent plasma. Continue albuterol inhaler, vitamin supplements, IV Solu-Medrol, Lovenox 40 mg twice daily. Continue oxygen therapy. She is currently on AirVo and on rebreather. 2. Acute bilateral pneumonia, Covid 19 pneumonia, possible bacterial pneumonia. 3. Elevated inflammatory markers consistent with Covid 19 pneumonia. 4. Rheumatoid arthritis. 5. Hypothyroidism. Continue levothyroxine 75 g daily. 6. GI prophylaxis. Protonix. 7. DVT prophylaxis. Lovenox. 8. Hyperglycemia secondary to steroids. Continue NovoLog scale plus scheduled NovoLog 10 units with meals and at bedtime and Levemir creased to 15 units daily. DISCHARGE PLAN Most likely return home, to be determined. Impression and plan of care have been directed as dictated by the signing physician. Sharmila Coleman nurse practitioner acting as scribe for signing physician. Objective - Vital Signs Vital signs: Vital Signs Temp 98.1 F 08/06/20 04:00 Pulse 72 08/06/20 08:00 Resp 30 H 08/06/20 08:00 BP 135/91 08/06/20 08:00 Pulse Ox 89 L 08/06/20 08:24 Intake & Output 08/05/20 08/06/20 08/06/20 18:59 06:59 18:59 Intake Total 2650 1100 450 Output Total 1500 1300 600 Balance 1150 -200 -150 Intake: IV 1200 1100 200 Sodium Chloride 0.9% 1, 1200 1100 200 000 ml @ 100 mls/hr IV . Q10H [facility] Rx#:[id number] Oral 1450 250 Output: Urine 1500 1300 600 Other: Voiding Method Bedside Commode Bedside Commode Bedside Commode # Voids 1 # Bowel Movements 1 1 1 - Labs CBC & Chem 7: 08/06/20 03:50 08/06/20 03:50 Labs: Abnormal Lab Results - Last 24 Hours (Table) 08/01/20 08/02/20 08/05/20 Range/Units 04:00 04:03 12:16 WBC (3.8-10.6) k/uL Neutrophils # (1.3-7.7) k/uL Lymphocytes # (1.0-4.8) k/uL D-Dimer (<0.60) mg/L FEU Carbon Dioxide (22-30) mmol/L BUN (7-17) mg/dL Creatinine (0.52-1.04) mg/dL Glucose (74-99) mg/dL POC Glucose (mg/dL) 261 H (75-99) mg/dL Ferritin (10.0-291.0) ng/mL Lactate Dehydrogenase (313-618) U/L LD Isoenzymes 532 H 490 H (120-250) U/L LD 1 12 L 12 L (19-38) % LD 2 28 L (30-43) % LD 3 28 H 30 H (16-26) % LD 4 14 H 13 H (3-12) % LD 5 18 H (3-14) % 08/05/20 08/05/20 08/06/20 Range/Units 17:09 19:54 03:50 WBC 18.0 H (3.8-10.6) k/uL Neutrophils # 17.0 H (1.3-7.7) k/uL Lymphocytes # 0.5 L (1.0-4.8) k/uL D-Dimer (<0.60) mg/L FEU Carbon Dioxide (22-30) mmol/L BUN (7-17) mg/dL Creatinine (0.52-1.04) mg/dL Glucose (74-99) mg/dL POC Glucose (mg/dL) 236 H 206 H (75-99) mg/dL Ferritin (10.0-291.0) ng/mL Lactate Dehydrogenase (313-618) U/L LD Isoenzymes (120-250) U/L LD 1 (19-38) % LD 2 (30-43) % LD 3 (16-26) % LD 4 (3-12) % LD 5 (3-14) % 08/06/20 08/06/20 08/06/20 Range/Units 03:50 03:50 06:45 WBC (3.8-10.6) k/uL Neutrophils # (1.3-7.7) k/uL Lymphocytes # (1.0-4.8) k/uL D-Dimer 0.61 H (<0.60) mg/L FEU Carbon Dioxide 31 H (22-30) mmol/L BUN 21 H (7-17) mg/dL Creatinine 0.49 L (0.52-1.04) mg/dL Glucose 139 H (74-99) mg/dL POC Glucose (mg/dL) 154 H (75-99) mg/dL Ferritin 349.8 H (10.0-291.0) ng/mL Lactate Dehydrogenase 1149 H (313-618) U/L LD Isoenzymes (120-250) U/L LD 1 (19-38) % LD 2 (30-43) % LD 3 (16-26) % LD 4 (3-12) % LD 5 (3-14) %
[2020-08-06 12:04] LABS: Glucose,Whole Blood 144 mg/dL (75-99)
--- NOTE | 2020-08-06 12:21 | P.PN ---
Subjective Progress Note Date: 08/06/20 Principal diagnosis: Acute hypoxic respiratory failure suspect CoVID 19 related pneumonia The patient is seen today 08/05/2020 follow-up in the intensive care unit. She was originally admitted back on 07/28/2020 for Covid 19 pneumonitis. She deteriorated with subsequent transfer to the intensive care unit on the morning of 07/30/2020. She had initially been on high flow oxygen per the AirVo device in addition to a nonrebreather. She is currently awake and alert in no acute distress. Sitting up in a chair at the bedside. She is on 15 L high flow nasal cannula. 0.9 normal saline at 100 ML's per hour. She is doing better today compared to yesterday. She has completed her Remdesivir. Received convalescent plasma 2. Remains on high-dose Solu-Medrol. Lovenox 40 mg subcu every 12 hours. Continued on vitamin supplements. Chest x-ray reveals patchy bilateral airspace disease consistent with Covid 19 pneumonia. No significant change. Blood cultures reveal no growth. Sputum culture reveals no growth. White count 17.9. Hemoglobin 11.2. Sodium 137. Potassium 3.5. Creatinine 0.55. Last d- dimer 0.88. The patient is seen today 08/06/2020 in follow-up in the intensive care unit. She is currently sitting up in a chair at the bedside. Awake and alert in no acute distress. She is on 12 L high flow nasal cannula with O2 saturations in the 90s. She has a 0.9 normal saline at 100 ML's per hour. She is tolerating a diet. She is feeling stronger. Blood and sputum cultures reveal no growth. White count 18.0. Hemoglobin 11.9. Lymphocytes 0.5. D-dimer 0.61. Sodium 137. Potassium 3.8. Creatinine 0.49. Ferritin 349. LDH 1149. C-reactive p rotein 5.1. She has completed her Remdesivir. Received convalescent plasma 2. Remains on high-dose Solu-Medrol. Lovenox 40 mg subcu every 12 hours. Continued on vitamin supplements. Objective - Vital Signs Vital signs: Vital Signs Temp 98.1 F 08/06/20 04:00 Pulse 72 08/06/20 08:00 Resp 30 H 08/06/20 08:00 BP 135/91 08/06/20 08:00 Pulse Ox 89 L 08/06/20 08:24 Intake & Output 08/05/20 08/06/20 08/06/20 18:59 06:59 18:59 Intake Total 2650 1100 450 Output Total 1500 1300 600 Balance 1150 -200 -150 Intake: IV 1200 1100 200 Sodium Chloride 0.9% 1, 1200 1100 200 000 ml @ 100 mls/hr IV . Q10H [facility] Rx#:[id number] Oral 1450 250 Output: Urine 1500 1300 600 Other: Voiding Method Bedside Commode Bedside Commode Bedside Commode # Voids 1 # Bowel Movements 1 1 1 - Exam GENERAL EXAM: Alert, very pleasant 64-year-old female patient on 12 L high flow nasal cannula with O2 saturation 94% in mild respiratory distress. HEAD: Normocephalic. EYES: Normal reaction of pupils, equal size. NOSE: Clear with pink turbinates. THROAT: No erythema or exudates. NECK: No masses, no JVD. CHEST: No chest wall deformity. LUNGS: Equal air entry with bibasilar coarse crackles. CVS: S1 and S2 normal with no audible murmur, regular rhythm. ABDOMEN: No hepatosplenomegaly, normal bowel sounds, no guarding or rigidity. SPINE: No scoliosis or deformity SKIN: No rashes CENTRAL NERVOUS SYSTEM: No focal deficits, tone is normal in all 4 extremities. EXTREMITIES: There is no peripheral edema. No clubbing, no cyanosis. Peripheral pulses are intact. - Labs CBC & Chem 7: 08/06/20 03:50 08/06/20 03:50 Labs: Abnormal Lab Results - Last 24 Hours (Table) 08/01/20 08/02/20 08/05/20 Range/Units 04:00 04:03 12:16 WBC (3.8-10.6) k/uL Neutrophils # (1.3-7.7) k/uL Lymphocytes # (1.0-4.8) k/uL D-Dimer (<0.60) mg/L FEU Carbon Dioxide (22-30) mmol/L BUN (7-17) mg/dL Creatinine (0.52-1.04) mg/dL Glucose (74-99) mg/dL POC Glucose (mg/dL) 261 H (75-99) mg/dL Ferritin (10.0-291.0) ng/mL Lactate Dehydrogenase (313-618) U/L LD Isoenzymes 532 H 490 H (120-250) U/L LD 1 12 L 12 L (19-38) % LD 2 28 L (30-43) % LD 3 28 H 30 H (16-26) % LD 4 14 H 13 H (3-12) % LD 5 18 H (3-14) % 08/05/20 08/05/20 08/06/20 Range/Units 17:09 19:54 03:50 WBC 18.0 H (3.8-10.6) k/uL Neutrophils # 17.0 H (1.3-7.7) k/uL Lymphocytes # 0.5 L (1.0-4.8) k/uL D-Dimer (<0.60) mg/L FEU Carbon Dioxide (22-30) mmol/L BUN (7-17) mg/dL Creatinine (0.52-1.04) mg/dL Glucose (74-99) mg/dL POC Glucose (mg/dL) 236 H 206 H (75-99) mg/dL Ferritin (10.0-291.0) ng/mL Lactate Dehydrogenase (313-618) U/L LD Isoenzymes (120-250) U/L LD 1 (19-38) % LD 2 (30-43) % LD 3 (16-26) % LD 4 (3-12) % LD 5 (3-14) % 08/06/20 08/06/20 08/06/20 Range/Units 03:50 03:50 06:45 WBC (3.8-10.6) k/uL Neutrophils # (1.3-7.7) k/uL Lymphocytes # (1.0-4.8) k/uL D-Dimer 0.61 H (<0.60) mg/L FEU Carbon Dioxide 31 H (22-30) mmol/L BUN 21 H (7-17) mg/dL Creatinine 0.49 L (0.52-1.04) mg/dL Glucose 139 H (74-99) mg/dL POC Glucose (mg/dL) 154 H (75-99) mg/dL Ferritin 349.8 H (10.0-291.0) ng/mL Lactate Dehydrogenase 1149 H (313-618) U/L LD Isoenzymes (120-250) U/L LD 1 (19-38) % LD 2 (30-43) % LD 3 (16-26) % LD 4 (3-12) % LD 5 (3-14) % 08/06/20 Range/Units 11:46 WBC (3.8-10.6) k/uL Neutrophils # (1.3-7.7) k/uL Lymphocytes # (1.0-4.8) k/uL D-Dimer (<0.60) mg/L FEU Carbon Dioxide (22-30) mmol/L BUN (7-17) mg/dL Creatinine (0.52-1.04) mg/dL Glucose (74-99) mg/dL POC Glucose (mg/dL) 144 H (75-99) mg/dL Ferritin (10.0-291.0) ng/mL Lactate Dehydrogenase (313-618) U/L LD Isoenzymes (120-250) U/L LD 1 (19-38) % LD 2 (30-43) % LD 3 (16-26) % LD 4 (3-12) % LD 5 (3-14) % Assessment and Plan Assessment: 1 Acute hypoxic respiratory failure, consider possibility of COVID 19 related pneumonia, although patient tested negative twice on outpatient and in the emergency department using that rapid COVID 19 test. In view of her recent history of exposure to her COVID 19 positive mother, who had from complications related to COVID 19, and her COVID 19 antibody test was reactive, she treated with Remdesivir, dexamethasone, convalescent plasma x 2, and prophylactic anticoagulation. Ruled out possibility of influenza infection. Computed tomography scan of the chest reveals significant diffuse bilateral airspace disease correlate for diffuse pneumonia versus ARDS 2 Possibility of bacterial pneumonia is also being considered, Legionella urine antigen, mycoplasma pneumonia antibody IgM and IgA, pro-calcitonin level, results negative and currently not on antibiotics 3 History of rheumatoid arthritis, at this time it's unknown if patient has any chronic parenchymal changes from underlying history of rheumatoid arthritis 4 Hypothyroidism 5 Increased inflammatory markers including LDH, and CRP 6 Increased AST and ALT possibility of viral or bacterial pneumonia Plan: The patient was seen and evaluated by Dr. Mena Continue the current treatment plan Titrate down the FiO2 as tolerated Increase her activity as tolerated Transfer out of the ICU today We will continue to follow and make further recommendations based on her clinical status. I, the cosigning physician, performed a history & physical examination of the patient. Lungs sounds with bibasilar crackles. Maintaining good O2 saturations in the 90s on 12 L high flow oxygen. I discussed the assessment and plan of care with my nurse practitioner, Mildred Cazares. I attest to the above note as dictated by her.
[2020-08-06 16:57] LABS: Glucose,Whole Blood 226 mg/dL (75-99)
[2020-08-06 20:16] LABS: Glucose,Whole Blood 190 mg/dL (75-99)
[2020-08-07] MEDS: methylPREDNISolone SOD SUCCI 125 MG/2 ML VIAL IV SCH ×4 (00:36→17:43)
[2020-08-07] MEDS: LEVOTHYROXINE 75 MCG TAB PO SCH (05:38)
[2020-08-07 07:19] LABS: Glucose,Whole Blood 162 mg/dL (75-99)
[2020-08-07] MEDS: ALBUTEROL HFA INHALER INHALATION SCH ×4 (07:43→19:11)
[2020-08-07] MEDS: INSULIN ASPART (NovoLOG) 100 UNIT/ML VIAL SQ SCH ×8 (08:37→21:47)
[2020-08-07] MEDS: NYSTATIN 100,000 UNIT/ML SUSP 500,000 UNIT/5 ML CUP PO SCH ×4 (08:37→21:46)
[2020-08-07] MEDS: ASCORBIC ACID 500 MG TAB PO SCH (08:38)
[2020-08-07] MEDS: PANTOPRAZOLE 40 MG TABLET PO SCH (08:38)
[2020-08-07] MEDS: ENOXAPARIN 40 MG/0.4 ML SYRINGE SQ SCH (08:38)
[2020-08-07] MEDS: CHOLECALCIFEROL 1,000 UNIT TAB PO SCH (08:38)
[2020-08-07] MEDS: ZINC SULFATE 220 MG CAP PO SCH (08:38)
[2020-08-07] MEDS: INSULIN DETEMIR (LEVEMIR) 100 UNIT/ML SYR SQ SCH (08:44)
[2020-08-07 11:23] LABS: Glucose,Whole Blood 140 mg/dL (75-99)
--- NOTE | 2020-08-07 13:28 | P.PN ---
Subjective Progress Note Date: 08/07/20 HISTORY OF PRESENT ILLNESS This is a 64-year-old female patient of Dr. Mcdonough with a past medical history of hypothyroidism, rheumatoid arthritis. Patient was recently exposed to her mother with Covid 19. Mother last day had had stated her home. She now complains of cough and shortness of breath. She denies having any fever. Patient presented to [facility] emergency center for evaluation. She is found to be afebrile, heart rate 90, blood pressure 142/76, pulse ox 81% on room air. WBC 18.8, d-dimer 0.63, blood sugar 171. AST 94, ALT 126. LDH 1234. CK 36. Troponin negative. C-reactive protein 186.8. ProBNP 128. COVID-19 nondetected. Chest x-ray reveals moderate to severe. She rounded interstitial infiltrates throughout the mid and lower lungs bilaterally consistent with Covid 19 pneumonia inhalers, Lovenox, consult requested with pulmonary medicine [facility]. 07/29: The patient is now requiring nonrebreather and high flow nasal cannula 15 L with pulse ox of 95%. She has been afebrile, heart rate 68, blood pressure 121/72. She has been started on Remdesivir, day 2/5. Blood cultures are showing no growth at 24 hours. She continues to have a cough and cough with deep breathing. She denies chest pain or abdominal pain. Lovenox increase to twice daily. CAT scan angiogram of the chest ordered to rule out pulmonary embolism. This revealed diffuse bilateral airspace disease correlate for diffuse pneumonia or ARDS. No central pulmonary embolism distal branches are limited. 07/30: Patient is on day #3/5 on Remdesivir. She is status post convalescent plasma transfusion. The patient was transitioned to AirVo yesterday currently pulse oxing in the mid 80s on FiO2 90, flow rate of 60. Patient is to be transferred to the intensive care unit. Patient is complaining of shortness of breath as well as chest feeling tight and dry. Patient denies having any nausea, vomiting, diarrhea or abdominal pain. She's been afebrile, heart rate 65, blood pressure 143/58. D-dimer 0.63. Legionella negative. Sputum culture is in process. WBC 15, hemoglobin 12.2, platelet count 309, lymphocytes 0.8. Electrolytes normal, creatinine 0.5. Total bilirubin 0.4, AST 63, ALT 68, alkal ine phosphatase 109. LDH 482. C-reactive protein 12.8. Troponin 1 negative. Mycoplasma testing is in process. Discussed CODE STATUS the patient wishes to BE a full code. 07/31: Patient is seen today in the intensive care unit. She is on both nonrebreather and high flow nasal cannula pulse oxing 90%. Repeat chest x-ray reveals correlate for pneumonia. No respiratory distress noted at the time of the valve. She has been afebrile WBC 11.9, hemoglobin 11.3, d-dimer 0.6. Electrolytes and renal function normal. Ferritin 649. AST 47, ALT 62, LDH improving to 482. Pro-calcitonin 0.08. Antibiotics discontinued. Covid 19 antibody test came back reactive. Mycoplasma pneumoniae IgG elevated and IgM low at 0.61. Patient is now transfused 2 units of convalescent plasma. She is on day 4 of Remdesivir. Dexamethasone was transitioned Solu-Medrol. 08/01: Patient remains in the intensive care unit. She is currently on airflow and a nonrebreather. Pulse ox drops into the 70s when she tries to eat with Arava 1 only. At rest she can maintain pulse ox of 90%. She has been afebrile, heart rate 72, respiratory rate 32, pulse ox 89%. WBC 17.5, lymphocytes are 0.9. D-dimer 0.64. Creatinine 0.54. Blood sugars running in the 200s up to 327. Total bilirubin 0.4, AST 40, ALT 59, alkaline phosphatase 111. Peritoneal 514.5. C-reactive protein 40.8. Sputum culture finalized with normal ozzy. Patient's son Henry ([phone]) is requesting the patient be transferred to [facility]. Patient herself will do what ever family wishes for her. Patient is not progressing but no worsening either be stable today. Do not anticipate [facility] transfer. newspaper library manager is working with [facility] at this time. Patient is on Remdesivir day #5/5. 08/02: Patient remains in the intensive care unit and pulse ox is 88-90% on Arava plus nonrebreather. She has been afebrile, heart rate 73, respiratory rate 29, blood pressure 134/65. WBC 17.2. D-dimer 0.77. Creatinine 0.58. Blood sugars running between 185 and 249. Ferritin 453.9. ALT 54. C-reactive protein 24.9. Scheduled NovoLog added to scale. 08/03: Patient remains in the intensive care unit and since she is feeling better. She is currently on airflow and nonrebreather at night with pulse ox is 94%. She is on airflow only during the day. Patient continues to have hyperglycemia for which NovoLog increased to 10 units scheduled and Levemir added. Patient is afebrile, heart rate 73, blood pressure 136/68. WBC 15.7, hemoglobin 11.4. Sodium 136, BUN 19 and creatinine 0.53. Blood sugars running between 199 at 306. Patient is laying on her sides which is close to she can get to proning. gambling monitor sinus rhythm. 08/04: Patient remains in the intensive care unit. Her respiratory status is slowly improving. She is now pulse oxing 90-94% with FiO2 of 65 and flow rate 50 which is down from 65%. She's been afebrile, heart rate 73, blood pressure 150/77. gambling monitor is sinus rhythm. Patient is eating very well. Patient is scheduled for midline insertion today. Blood sugars remain elevated 178-231 and Levemir increased to 10 units in the morning and scheduled NovoLog to 7 units. Other lab work reveals WBC 17.1. D-dimer 0.88. BUN 21 and creatinine 0.46. C-reactive protein 13.9. LDH 1448. 08/05: Patient remains in the intensive care unit. Her respiration status continues to show improvement. She is found sitting in a chair with 12 L high flow nasal cannula O2. She has been afebrile, heart rate 63, blood pressure 161/77, respirations 18 nonlabored, pulse oxing 92% on high flow at 12 L. Blood sugars remain elevated in the 200s. We will increase Levemir to 15 units in the morning and NovoLog to 10 units 3 times a day. WBC 17.9, hemoglobin 11.2, platelets 376, potassium 3.5, carbon dioxide 31, BUN 20, creatinine 0.55 08/06: Patient remains in the intensive care unit. She is found sitting up in chair. Her respiration status continues to show improvement. She is currently at 10 L of high flow nasal cannula O2. Her pulse ox is between 93 and 94%. Blood sugars have been well managed with the change to the Levemir and NovoLog. Patient remains afebrile, respirations 28, blood pressure 135/91, pulse ox 94% on high flow O2 at 10L. WBC 18.0, hemoglobin 11.9, d-dimer 0.61, carbon dioxide 31, BUN 21, creatinine 0.49, C-reactive protein 5.1, CK-MB 0.8 08/07: Patient is found ambulating in her room. Pulse ox is 87% on 8 L. Patient does not complain of shortness of breath. She has been afebrile, heart rate 62, blood pressure 158/72. Blood sugars running between 162 and 226. And to continue to monitor closely and wean oxygen down. Most likely patient will require oxygen at discharge. REVIEW OF SYSTEMS Constitutional: No fever, no chills, no night sweats. Reports weakness, reports fatigue. No daytime sleepiness. EENT: No headache. No blurred vision or double vision, no loss of vision. No loss of Hearing, no ringing in the ears, no dizziness. No sore throat. Lungs: Reports continued shortness of breath, Reports cough, no sputum production. No wheezing. Cardiovascular: Reports chest pain, no lower extremity edema. No palpitations. No paroxysmal nocturnal dyspnea. No orthopnea. No lightheadedness or dizziness. No syncopal episodes. Abdominal: No abdominal pain. No nausea, vomiting. No diarrhea. No consti pation. No bloody or tarry stools. Good appetite. Genitourinary: No dysuria, increased frequency, urgency. No urinary retention. Musculoskeletal: No myalgias. No muscle weakness, no gait dysfunction, no frequent falls. No back pain. No neck pain. Integumentary: No wounds, no lesions. No rash or pruritus. Neurologic: No aphasia. No facial droop. No change in mentation. No head injury. No headache. No paralysis. No paresthesia. Psychiatric: No depression. No anxiety. Endocrine: Elevated blood sugars. PHYSICAL EXAMINATION Gen: This is a 64-year-old female. No respiratory distress noted. HEENT: Head is atraumatic, normocephalic. Pupils equal, round. Sclerae is anicteric. NECK: Supple. No JVD. No lymphadenopathy. No thyromegaly. LUNGS: Fine crackles bilaterally throughout. No wheezing. HEART: Regular rate and rhythm. No murmur. ABDOMEN: Soft. Bowel sounds are present. No masses. No tenderness. EXTREMITIES: No pedal edema. No calf tenderness. NEUROLOGICAL: Patient is awake, alert and oriented x3. Cranial nerves 2 through 12 are grossly intact. ASSESSMENT AND PLAN 1. Acute hypoxic respiratory failure secondary to Covid 19 pneumonia. Pulmonary medicine consult appreciated. Covid 19 antibody test positive. Patient on Remdesivir day 11/22, status post 2 unit convalescent plasma. Continue albuterol inhaler, vitamin supplements, IV Solu-Medrol, Lovenox 40 mg twice daily. Continue oxygen therapy. She is currently on nasal cannula 2. Acute bilateral pneumonia, Covid 19 pneumonia, possible bacterial pneumonia. 3. Elevated inflammatory markers consistent with Covid 19 pneumonia. 4. Rheumatoid arthritis. 5. Hypothyroidism. Continue levothyroxine 75 g daily. 6. GI prophylaxis. Protonix. 7. DVT prophylaxis. Lovenox. 8. Hyperglycemia secondary to steroids. Continue NovoLog scale plus scheduled NovoLog 10 units with meals and at bedtime and Levemir creased to 15 units daily. DISCHARGE PLAN Most likely return home on Friday. Patient will most likely need home oxygen arranged.. Impression and plan of care have been directed as dictated by the signing physician. Leanne Luna nurse practitioner acting as scribe for signing physician. Objective - Vital Signs Vital signs: Vital Signs Temp 97.9 F 08/07/20 05:00 Pulse 62 08/07/20 05:00 Resp 20 08/07/20 05:00 BP 158/72 08/07/20 05:00 Pulse Ox 97 08/07/20 05:00 Intake & Output 08/06/20 08/07/20 08/07/20 18:59 06:59 18:59 Intake Total 450 475 Output Total 600 Balance -150 475 Intake: IV 200 Sodium Chloride 0.9% 1, 200 000 ml @ 100 mls/hr IV . Q10H LOAN Rx#:[id number] Oral 250 475 Output: Urine 600 Other: Voiding Method Bedside Commode Bedside Commode # Voids 1 3 # Bowel Movements 1 - Labs CBC & Chem 7: 08/06/20 03:50 08/06/20 03:50 Labs: Abnormal Lab Results - Last 24 Hours (Table) 08/06/20 08/06/20 08/06/20 Range/Units 03:50 11:46 16:53 POC Glucose (mg/dL) 144 H 226 H (75-99) mg/dL Ferritin 349.8 H (10.0-291.0) ng/mL 08/06/20 08/07/20 Range/Units 20:14 07:17 POC Glucose (mg/dL) 190 H 162 H (75-99) mg/dL Ferritin (10.0-291.0) ng/mL
--- NOTE | 2020-08-07 13:37 | P.PN ---
Subjective Progress Note Date: 08/07/20 The patient is seen today 08/05/2020 follow-up in the intensive care unit. She was originally admitted back on 07/28/2020 for Covid 19 pneumonitis. She deteriorated with subsequent transfer to the intensive care unit on the morning of 07/30/2020. She had initially been on high flow oxygen per the AirVo device in addition to a nonrebreather. She is currently awake and alert in no acute distress. Sitting up in a chair at the bedside. She is on 15 L high flow nasal cannula. 0.9 normal saline at 100 ML's per hour. On 08/07/2020 I'm seeing the patient for a follow-up regarding her coronary/Co vid 19 infection. The patient remains on oxygen at 12 L per minute nasal cannula. On today's evaluation, she is being seen in follow-up. She is awake and communicating. She is short of breath with limited amount of activity. She is gradually improving. Sputum and blood cultures of been all negative and she has completed treatment for her viral infection.She has completed her Remdesivir. Received convalescent plasma 2. Remains on high-dose Solu-Medrol. Lovenox 40 mg subcu every 12 hours. Continued on vitamin supplements. Objective - Vital Signs Vital signs: Vital Signs Temp 97.9 F 08/07/20 11:35 Pulse 76 08/07/20 11:35 Resp 17 08/07/20 11:35 BP 150/84 08/07/20 11:35 Pulse Ox 91 L 08/07/20 11:49 Intake & Output 08/06/20 08/07/20 08/07/20 18:59 06:59 18:59 Intake Total 450 475 Output Total 600 Balance -150 475 Intake: IV 200 Sodium Chloride 0.9% 1, 200 000 ml @ 100 mls/hr IV . Q10H LOAN Rx#:[id number] Oral 250 475 Output: Urine 600 Other: Voiding Method Bedside Commode Bedside Commode Bedside Commode # Voids 1 3 # Bowel Movements 1 - Exam GENERAL EXAM: Alert, very pleasant 64-year-old female patient on 12 L high flow nasal cannula with O2 saturation 94% in mild respiratory distress. HEAD: Normocephalic. EYES: Normal reaction of pupils, equal size. NOSE: Clear with pink turbinates. THROAT: No erythema or exudates. NECK: No masses, no JVD. CHEST: No chest wall deformity. LUNGS: Equal air entry with bibasilar coarse crackles. CVS: S1 and S2 normal with no audible murmur, regular rhythm. ABDOMEN: No hepatosplenomegaly, normal bowel sounds, no guarding or rigidity. SPINE: No scoliosis or deformity SKIN: No rashes CENTRAL NERVOUS SYSTEM: No focal deficits, tone is normal in all 4 extremities. EXTREMITIES: There is no peripheral edema. No clubbing, no cyanosis. Peripheral pulses are intact. - Labs CBC & Chem 7: 08/06/20 03:50 08/06/20 03:50 Labs: Abnormal Lab Results - Last 24 Hours (Table) 08/06/20 08/06/20 08/07/20 Range/Units 16:53 20:14 07:17 POC Glucose (mg/dL) 226 H 190 H 162 H (75-99) mg/dL 08/07/20 Range/Units 11:21 POC Glucose (mg/dL) 140 H (75-99) mg/dL Assessment and Plan Plan: 1 Acute hypoxic respiratory failure, consider possibility of COVID 19 related pneumonia, although patient tested negative twice on outpatient and in the emergency department using that rapid COVID 19 test. In view of her recent history of exposure to her COVID 19 positive mother, who had from complications related to COVID 19, and her COVID 19 antibody test was reactive, she treated with Remdesivir, dexamethasone, convalescent plasma x 2, and prophylactic anticoagulation. Ruled out possibility of influenza infection. Computed tomography scan of the chest reveals significant diffuse bilateral airspace disease correlate for diffuse pneumonia versus ARDS 2 Possibility of bacterial pneumonia is also being considered, Legionella urine antigen, mycoplasma pneumonia antibody IgM and IgA, pro-calcitonin level, results negative and currently not on antibiotics 3 History of rheumatoid arthritis, at this time it's unknown if patient has any chronic parenchymal changes from underlying history of rheumatoid arthritis 4 Hypothyroidism 5 Increased inflammatory markers including LDH, and CRP 6 Increased AST and ALT possibility of viral or bacterial pneumonia Plan: The patient is clinically stable. She is currently on 12 L of oxygen by nasal cannula. Inflammatory markers are on the decline. Going to attempt to wean down the FiO2 as tolerated. left the intensive care unit yesterday. Currently on a medical floor. Continue the current treatment plan Titrate down the FiO2 as tolerated Increase her activity as tolerated. We are going to drop down the Lovenox 40 mg subcu every 24 hours. Solu-Medrol be tapered as of tomorrow
[2020-08-07 17:11] LABS: Glucose,Whole Blood 293 mg/dL (75-99)
[2020-08-07 21:11] LABS: Glucose,Whole Blood 285 mg/dL (75-99)
[2020-08-08] MEDS: methylPREDNISolone SOD SUCCI 125 MG/2 ML VIAL IV SCH ×5 (00:16→23:44)
[2020-08-08] MEDS: LEVOTHYROXINE 75 MCG TAB PO SCH (05:52)
[2020-08-08 07:17] LABS: Glucose,Whole Blood 132 mg/dL (75-99)
[2020-08-08] MEDS: ALBUTEROL HFA INHALER INHALATION SCH ×4 (08:52→20:26)
[2020-08-08] MEDS: CHOLECALCIFEROL 1,000 UNIT TAB PO SCH ×2 (09:23→09:24)
[2020-08-08] MEDS: ASCORBIC ACID 500 MG TAB PO SCH (09:23)
[2020-08-08] MEDS: PANTOPRAZOLE 40 MG TABLET PO SCH (09:23)
[2020-08-08] MEDS: ENOXAPARIN 40 MG/0.4 ML SYRINGE SQ SCH (09:24)
[2020-08-08] MEDS: NYSTATIN 100,000 UNIT/ML SUSP 500,000 UNIT/5 ML CUP PO SCH ×4 (09:24→21:33)
[2020-08-08] MEDS: INSULIN ASPART (NovoLOG) 100 UNIT/ML VIAL SQ SCH ×8 (09:24→21:32)
[2020-08-08] MEDS: ZINC SULFATE 220 MG CAP PO SCH (09:24)
[2020-08-08] MEDS: INSULIN DETEMIR (LEVEMIR) 100 UNIT/ML SYR SQ SCH (09:25)
[2020-08-08 11:00] LABS: Glucose,Whole Blood 197 mg/dL (75-99)
--- NOTE | 2020-08-08 11:26 | P.PN ---
Subjective Progress Note Date: 08/08/20 HISTORY OF PRESENT ILLNESS This is a 64-year-old female patient of Dr. Mcdonough with a past medical history of hypothyroidism, rheumatoid arthritis. Patient was recently exposed to her mother with Covid 19. Mother last day had had stated her home. She now complains of cough and shortness of breath. She denies having any fever. Patient presented to [facility] emergency center for evaluation. She is found to be afebrile, heart rate 90, blood pressure 142/76, pulse ox 81% on room air. WBC 18.8, d-dimer 0.63, blood sugar 171. AST 94, ALT 126. LDH 1234. CK 36. Troponin negative. C-reactive protein 186.8. ProBNP 128. COVID-19 nondetected. Chest x-ray reveals moderate to severe. She rounded interstitial infiltrates throughout the mid and lower lungs bilaterally consistent with Covid 19 pneumonia inhalers, Lovenox, consult requested with pulmonary medicine [facility]. 07/29: The patient is now requiring nonrebreather and high flow nasal cannula 15 L with pulse ox of 95%. She has been afebrile, heart rate 68, blood pressure 121/72. She has been started on Remdesivir, day 2/5. Blood cultures are showing no growth at 24 hours. She continues to have a cough and cough with deep breathing. She denies chest pain or abdominal pain. Lovenox increase to twice daily. CAT scan angiogram of the chest ordered to rule out pulmonary embolism. This revealed diffuse bilateral airspace disease correlate for diffuse pneumonia or ARDS. No central pulmonary embolism distal branches are limited. 07/30: Patient is on day #3/5 on Remdesivir. She is status post convalescent plasma transfusion. The patient was transitioned to AirVo yesterday currently pulse oxing in the mid 80s on FiO2 90, flow rate of 60. Patient is to be transferred to the intensive care unit. Patient is complaining of shortness of breath as well as chest feeling tight and dry. Patient denies having any nausea, vomiting, diarrhea or abdominal pain. She's been afebrile, heart rate 65, blood pressure 143/58. D-dimer 0.63. Legionella negative. Sputum culture is in process. WBC 15, hemoglobin 12.2, platelet count 309, lymphocytes 0.8. Electrolytes normal, creatinine 0.5. Total bilirubin 0.4, AST 63, ALT 68, alkal ine phosphatase 109. LDH 482. C-reactive protein 12.8. Troponin 1 negative. Mycoplasma testing is in process. Discussed CODE STATUS the patient wishes to BE a full code. 07/31: Patient is seen today in the intensive care unit. She is on both nonrebreather and high flow nasal cannula pulse oxing 90%. Repeat chest x-ray reveals correlate for pneumonia. No respiratory distress noted at the time of the valve. She has been afebrile WBC 11.9, hemoglobin 11.3, d-dimer 0.6. Electrolytes and renal function normal. Ferritin 649. AST 47, ALT 62, LDH improving to 482. Pro-calcitonin 0.08. Antibiotics discontinued. Covid 19 antibody test came back reactive. Mycoplasma pneumoniae IgG elevated and IgM low at 0.61. Patient is now transfused 2 units of convalescent plasma. She is on day 4 of Remdesivir. Dexamethasone was transitioned Solu-Medrol. 08/01: Patient remains in the intensive care unit. She is currently on airflow and a nonrebreather. Pulse ox drops into the 70s when she tries to eat with Arava 1 only. At rest she can maintain pulse ox of 90%. She has been afebrile, heart rate 72, respiratory rate 32, pulse ox 89%. WBC 17.5, lymphocytes are 0.9. D-dimer 0.64. Creatinine 0.54. Blood sugars running in the 200s up to 327. Total bilirubin 0.4, AST 40, ALT 59, alkaline phosphatase 111. Peritoneal 514.5. C-reactive protein 40.8. Sputum culture finalized with normal ozzy. Patient's son Henry ([phone]) is requesting the patient be transferred to [facility]. Patient herself will do what ever family wishes for her. Patient is not progressing but no worsening either be stable today. Do not anticipate [facility] transfer. pharmacy operations manager is working with [facility] at this time. Patient is on Remdesivir day #5/5. 08/02: Patient remains in the intensive care unit and pulse ox is 88-90% on Arava plus nonrebreather. She has been afebrile, heart rate 73, respiratory rate 29, blood pressure 134/65. WBC 17.2. D-dimer 0.77. Creatinine 0.58. Blood sugars running between 185 and 249. Ferritin 453.9. ALT 54. C-reactive protein 24.9. Scheduled NovoLog added to scale. 08/03: Patient remains in the intensive care unit and since she is feeling better. She is currently on airflow and nonrebreather at night with pulse ox is 94%. She is on airflow only during the day. Patient continues to have hyperglycemia for which NovoLog increased to 10 units scheduled and Levemir added. Patient is afebrile, heart rate 73, blood pressure 136/68. WBC 15.7, hemoglobin 11.4. Sodium 136, BUN 19 and creatinine 0.53. Blood sugars running between 199 at 306. Patient is laying on her sides which is close to she can get to proning. ekg monitor sinus rhythm. 08/04: Patient remains in the intensive care unit. Her respiratory status is slowly improving. She is now pulse oxing 90-94% with FiO2 of 65 and flow rate 50 which is down from 65%. She's been afebrile, heart rate 73, blood pressure 150/77. ekg monitor is sinus rhythm. Patient is eating very well. Patient is scheduled for midline insertion today. Blood sugars remain elevated 178-231 and Levemir increased to 10 units in the morning and scheduled NovoLog to 7 units. Other lab work reveals WBC 17.1. D-dimer 0.88. BUN 21 and creatinine 0.46. C-reactive protein 13.9. LDH 1448. 08/05: Patient remains in the intensive care unit. Her respiration status continues to show improvement. She is found sitting in a chair with 12 L high flow nasal cannula O2. She has been afebrile, heart rate 63, blood pressure 161/77, respirations 18 nonlabored, pulse oxing 92% on high flow at 12 L. Blood sugars remain elevated in the 200s. We will increase Levemir to 15 units in the morning and NovoLog to 10 units 3 times a day. WBC 17.9, hemoglobin 11.2, platelets 376, potassium 3.5, carbon dioxide 31, BUN 20, creatinine 0.55 08/06: Patient remains in the intensive care unit. She is found sitting up in chair. Her respiration status continues to show improvement. She is currently at 10 L of high flow nasal cannula O2. Her pulse ox is between 93 and 94%. Blood sugars have been well managed with the change to the Levemir and NovoLog. Patient remains afebrile, respirations 28, blood pressure 135/91, pulse ox 94% on high flow O2 at 10L. WBC 18.0, hemoglobin 11.9, d-dimer 0.61, carbon dioxide 31, BUN 21, creatinine 0.49, C-reactive protein 5.1, CK-MB 0.8 08/07: Patient is found ambulating in her room. Pulse ox is 87% on 8 L. Patient does not complain of shortness of breath. She has been afebrile, heart rate 62, blood pressure 158/72. Blood sugars running between 162 and 226. And to continue to monitor closely and wean oxygen down. Most likely patient will require oxygen at discharge. 08/08: She has found again ambulating in her room. Pulse ox is now 85-86% on 10 L nasal cannula. She has been afebrile, heart rate 59, blood pressure 111/68. Blood sugar running between 132 and 293. Solu-Medrol was decreased as well as Lovenox decreased frequency yesterday by pulmonary medicine. Patient is currently stable and will need oxygen requirements down to 5 or 6 L before she can be discharged. Plan is to wean oxygen down and increase activity. Possible discharge by Friday or of this week. REVIEW OF SYSTEMS Constitutional: No fever, no chills, no night sweats. Reports weakness, reports fatigue. No daytime sleepiness. EENT: No headache. No blurred vision or double vision, no loss of vision. No loss of Hearing, no ringing in the ears, no dizziness. No sore throat. Lungs: Reports continued shortness of breath, Reports cough, no sputum production. No wheezing. Cardiovascular: Reports chest pain, no lower extremity edema. No palpitations. No lightheadedness or dizziness. No syncopal episodes. Abdominal: No abdominal pain. No nausea, vomiting. No diarrhea. No constipation. No bloody or tarry stools. Good appetite. Genitourinary: No dysuria, increased frequency, urgency. No urinary retention. Musculoskeletal: No myalgias. No muscle weakness, no gait dysfunction, no frequent falls. No back pain. No neck pain. Integumentary: No wounds, no lesions. No rash or pruritus. Neurologic: No aphasia. No facial droop. No change in mentation. No head injury. No headache. No paralysis. No paresthesia. Psychiatric: No depression. No anxiety. Endocrine: Elevated blood sugars. PHYSICAL EXAMINATION Gen: This is a 64-year-old female. No respiratory distress noted. HEENT: Head is atraumatic, normocephalic. Pupils equal, round. Sclerae is anict chidi. NECK: Supple. No JVD. No lymphadenopathy. No thyromegaly. LUNGS: Fine crackles bilaterally throughout. No wheezing. HEART: Regular rate and rhythm. No murmur. ABDOMEN: Soft. Bowel sounds are present. No masses. No tenderness. EXTREMITIES: No pedal edema. No calf tenderness. NEUROLOGICAL: Patient is awake, alert and oriented x3. Cranial nerves 2 through 12 are grossly intact. ASSESSMENT AND PLAN 1. Acute hypoxic respiratory failure secondary to Covid 19 pneumonia. Pulmonary medicine consult appreciated. Covid 19 antibody test positive. Patient on Remdesivir day 11/22, status post 2 unit convalescent plasma. Continue albuterol inhaler, vitamin supplements, IV Solu-Medrol, Lovenox 40 mg daily. Continue oxygen therapy. She is currently on high flow nasal cannula 2. Acute bilateral pneumonia, Covid 19 pneumonia, possible bacterial pneumonia. 3. Elevated inflammatory markers consistent with Covid 19 pneumonia. 4. Rheumatoid arthritis. 5. Hypothyroidism. Continue levothyroxine 75 g daily. 6. GI prophylaxis. Protonix. 7. DVT prophylaxis. Lovenox. 8. Hyperglycemia secondary to steroids. Continue NovoLog scale plus scheduled NovoLog 10 units with meals and at bedtime and Levemir creased to 15 units daily. DISCHARGE PLAN Most likely return home on Friday. Patient will most likely need home oxygen arranged. Impression and plan of care have been directed as dictated by the signing physician. Leanne Luna nurse practitioner acting as scribe for signing physician. Objective - Vital Signs Vital signs: Vital Signs Temp 97.8 F 08/08/20 04:45 Pulse 59 L 08/08/20 04:45 Resp 18 08/08/20 04:45 BP 111/68 08/08/20 04:45 Pulse Ox 96 08/08/20 04:45 Intake & Output 08/07/20 08/08/20 08/08/20 18:59 06:59 18:59 Intake Total 290 Balance 290 Intake: Oral 290 Other: Voiding Method Bedside Commode Bedside Commode # Voids 1 # Bowel Movements 1 - Labs CBC & Chem 7: 08/06/20 03:50 08/06/20 03:50 Labs: Abnormal Lab Results - Last 24 Hours (Table) 08/07/20 08/07/20 08/07/20 Range/Units 11:21 17:02 21:09 POC Glucose (mg/dL) 140 H 293 H 285 H (75-99) mg/dL 08/08/20 Range/Units 07:15 POC Glucose (mg/dL) 132 H (75-99) mg/dL
--- NOTE | 2020-08-08 12:56 | P.PN ---
Subjective Progress Note Date: 08/08/20 Principal diagnosis: COVID 19 pneumonitis This is a 64-year-old female patient of Dr. Lamin Mcdonough, who presented to the emergency department on July 2020 with one week history of fatigue, body aches, chills, worsening shortness of breath with multiple family members not feeling well with similar symptoms. Apparently patient tested for coronavirus and was found to be negative, in view of significant shortness of breath and hypoxemia with a pulse ox in the low 80s, EMS was called. Of note patient's mother recently passed in this hospital of COVID 19 related complications. Patient's daughter is also hospitalized with COVID 19 symptoms. Chest x-ray showed [id number] patchy rounded interstitial infiltrates throughout mid to lower lungs consistent with COVID 19 pneumonia. White blood cell count is 18.8, hemoglobin is 13, neutrophil count is 16.6, lymphocyte count was 1.4, d-dimer 0.63, electrolytes are within normal limits, BUN is 19 creatin ine 0.5, lactic acid is 1.2, repeat COVID 19 rapid test in the emergency department was again negative. Patient's creatinine 8 L of oxygen pulse ox is 90-95%. The patient is seen today 07/29/2020 in follow-up on the regular medical floor. She is currently awake and alert and she is in mild respiratory distress. Her oxygen requirements have increased overnight. She is currently on 15 L high fl ow nasal cannula initially on a nonrebreather mask. She's currently afebrile. Computed tomography scan of the chest reveals diffuse bilateral airspace disease consistent with CoVID 19 pneumonitis. No evidence of pulmonary embolism. She did receive 1 unit of convalescent plasma. Blood and sputum cultures are pending. She is currently on ceftriaxone and azithromycin along with dexamethasone, Lovenox, vitamin supplements. This is day #2 of Remdesivir. A shunt was reevaluated today on 07/30/2020, patient took a downhill course clinically this morning, continued to desaturate, required higher FiO2, and she is now on 60 L high flow, and 90% FiO2 on airvo. Patient was noted to be dyspneic by the nurse taking care of her. Her oxygen requirement jumped up significantly, hence I recommended transferring the patient to the ICU. Patient is on remdesivir, day #3, and she received 1 unit of convalescent plasma. Patient remains on antibiotics empirically in the form of Rocephin and Zithrom ax, she is also on dexamethasone, Lovenox, and vitamin supplements. On 07/31/2020 patient seen in follow-up in the intensive care unit, she is awake and alert, still requiring quite a bit of oxygen, she is on high flow per Airvo at 60 L and FiO2 of 90% in addition to 100% nonrebreather mask her pulse ox is ranging between 88-90-91%, but seems to be in no acute distress. Blood pressure stable, patient has been afebrile, she is short of breath with any exertion, no chest discomfort. Today's chest x-ray has been reviewed showing bilateral patchy airspace disease persistence, low lung volumes and patient is rotated. Today's labs have been reviewed, showing white blood cell count of 11.9, hem oglobin is 11.3, d-dimer is 0.60, electrolytes and renal profile are unremarkable. Ferritin level is 649, liver enzymes are improving, AST is down to 47, ALT 62, LDH was improving from admission, and was down to 482 on yesterday's labs, CRP is up a bit from yesterday but overall is down compared to admission, pro-calcitonin level is negative at 0.08, patient's Covid 19 antibiotic test came back reactive confirming suspicion for Covid 19 related pneumonitis, Legionella urine antigen was negative, and mycoplasma pneumonia IgG came back elevated and mycoplasma pneumonia IgM was low at 0.61, suggesting exposure to mycoplasma pneumonia infection in the past but no current infection. Blood and sputum cultures have been negative. Patient is status post transfusion with 2 units of convalescent plasma and patient is on day 3 of Remdesivir treatment, she is on high-dose IV steroids with Solu-Medrol 40 mg every 6 hours and Lovenox at 40 mg twice daily On 08/01/2020 patient seen in follow-up in the intensive care unit, she remains on Airvo a 60 L and FiO2 of 90% in addition to 100% nonrebreather mask, and patient still quite hypoxic, and when she removes the nonrebreather mask for mealtimes patient quickly desats down to 79% and has to be placed on the additional oxygen until she recovers her saturation. Currently O2 sat is anywhere between 83 to 90%, afebrile, patient is dyspneic with any little exertion, but appears to be in no acute distress, no completes of chest pain, mild cough, chest x-ray today shows bilateral groundglass opacities, similar to previous exam, with possibly slight interval improvement in aeration. Patient is on day 4 of Remdesivir treatment, she status post revision with 2 units of convalescent immunoglobulin for Covid 19 and she remains on IV steroids with Solu-Medrol 80 mg every 6 hours in addition to vitamins, C, D and zinc, anticoagulation is with Lovenox 40 mg every 12 hours, and d-dimer is currently at 0.64, serum labs have been reviewed, showing white blood cell count 17.5, electrolytes and renal profile are unremarkable. On 08/02/2020 patient seen in follow-up in the intensive care unit, she remains on Airvo at 60 L at FiO2 of 90% in addition to 100% nonrebreather mask, however her sats noted to be better today, and during meals patient's O2 sat did not drop as low, patient is able tolerate breaks from the nonrebreather mask a levar le better. Breathing little better, she's been afebrile, hemodynamically stable, chest x-ray shows bilateral patchy infiltrates, stable in appearance. Patient completed her Remdesivir treatment, she did receive 2 units of convalescent plasma, she remains on IV steroids at 60 mg every 6 hours, sharon mins, and Lovenox at 40 mg every 12 hours. Today's labs have been reviewed, showing blood cell count 17.2, hemoglobin is 11.5, lymphopenia with the lymphocyte count of 0.8, neutrophils at 15.4, d-dimer 0.7, electrolytes are within normal limits, BUN is 19 and creatinine 0.58, d-dimer today is 0.77, CRP is 24.9, no LDH today, patient did receive a few days of antibiotics which were discontinued On 08/03/2020 patient seen in follow-up in the intensive care unit, she remains on Airvo at 60 L and FiO2 of 90% in addition to nonrebreather mask at 100%, and her pulse ox is 93-95%, normal. Does not appear to be in any acute distress, however does have exertional dyspnea. She's been afebrile, hemodynamically she is stable, no altered mentation, she is answering questions appropriately. Chest x-ray today shows bilateral interstitial and patchy airspace disease right greater than left without significant change. Denies any palpitations or chest discomfort, no significant cough. Patient status post 2 units of convalescent plasma, she remains on IV steroids, and she has completed her Remdesivir treatment. He remains on Lovenox at 40 mg every 12 hours, her d-dimer was 0.77. The rest of her lab data was reviewed, showing white blood cell count is 15.7, hemoglobin is 11.4, electrolytes and renal profile were unremarkable. Ferritin level has been trending down, her LDH from a few days ago was 482, and CRP was 24.9 on yesterday's labs. She's had no nausea vomiting or diarrhea. She is tolerating oral intake. On 08/04/2020 patient seen in follow-up in the intensive care unit. She remains on Airvo currently 55% FiO2 of 75%, she is no longer requiring her percent nonrebreather mask in addition to the Airvo. Her pulse ox is 90-94%, she is afebrile, hemodynamically stable, she is on 0.9 normal saline at a rate of 100 ML per hour, she is breathing easier, she seems to be oxygenating better. No new chest x-ray today, on today's labs have been reviewed, white blood cell count is 17.1, hemoglobin is 11.5, d-dimer 0.88, sodium is 136, potassium 3.7, CO2 is 32, BUN is 21 creatinine 0.56, LDH still elevated at 1448, CRP is 13.9. Blood and sputum cultures have been negative. Remains on high-dose IV steroids. Lovenox is at 40 mg every 12 hours. On August 08, 2020 patient seen in follow-up on medical floor, currently FiO2 is down to 8 L, her pulse ox is 94%, patient states she is breathing easier, she is afebrile, hemodynamically she is stable, lung sounds reveal some diffuse dry crackles, scant cough or congestion, no nausea vomiting or diarrhea, vital signs have been stable, patient has been tolerating ambulation, she's had no acute events overnight, her appetite is good, and patient is inquiring about her lunch and states that she is feeling hungry. She remains on high-dose IV steroids of Solu-Medrol 60 mg every 6 hours, prophylactic dose Lovenox 40 mg daily, no labs today, her last d-dimer was back on the Janumet 72,021 shows with the d-dimer 0.61, her inflammatory markers were improving, we will obtain follow-up inflammatory markers, blood and sputum cultures have shown no growth, on 08/06/2020 showed patchy bilateral airspace disease and persistent elevation of the right hemidiaphragm Objective - Vital Signs Vital signs: Vital Signs Temp 97.6 F 08/08/20 11:00 Pulse 68 08/08/20 11:00 Resp 17 08/08/20 11:00 BP 131/76 08/08/20 11:00 Pulse Ox 94 L 08/08/20 11:52 Intake & Output 08/07/20 08/08/20 08/08/20 18:59 06:59 18:59 Intake Total 290 Balance 290 Intake: Oral 290 Other: Voiding Method Bedside Commode Bedside Commode # Voids 1 # Bowel Movements 1 - Exam GENERAL EXAM: Alert, oriented, 64-year-old female on 8 Liters of oxygen the pulse ox of 94%, oxygenating better. HEAD: Normocephalic/atraumatic. EYES: Normal reaction of pupils, equal size. Conjunctiva pink, sclera white. NOSE: Clear with pink turbinates. THROAT: No erythema or exudates. NECK: No masses, no JVD, no thyroid enlargement, no adenopathy. CHEST: No chest wall deformity. Symmetrical expansion. LUNGS: Equal air entry with no crackles, wheeze, rhonchi or dullness. CVS: Regular rate and rhythm, normal S1 and S2, no gallops, no murmurs, no rubs ABDOMEN: Soft, nontender. No hepatosplenomegaly, normal bowel sounds, no guarding or rigidity. EXTREMITIES: No clubbing, no edema, no cyanosis, 2+ pulses and upper and lower extremities. MUSCULOSKELETAL: Muscle strength and tone normal. SPINE: No scoliosis or deformity SKIN: No rashes CENTRAL NERVOUS SYSTEM: Alert and oriented -3. No focal deficits, tone is normal in all 4 extremities. PSYCHIATRIC: Alert and oriented -3. Appropriate affect. Intact judgment and insight. - Labs CBC & Chem 7: 08/06/20 03:50 08/06/20 03:50 Labs: Abnormal Lab Results - Last 24 Hours (Table) 08/07/20 08/07/20 08/08/20 Range/Units 17:02 21:09 07:15 POC Glucose (mg/dL) 293 H 285 H 132 H (75-99) mg/dL 08/08/20 Range/Units 10:58 POC Glucose (mg/dL) 197 H (75-99) mg/dL Assessment and Plan Plan: Assessment: #1. Acute hypoxic respiratory failure, related to COVID 19 related pneumonitis, patient had 3 negative COVID 19 rapid test, however the diagnosis was confirmed with reactive antibiotic test, patient was initiated on Remdesivir on 07/28/2020, and she received 2 units of convalescent plasma on 07/28/2020 and a 07/30/2020. Remains on high flow oxygen per Airvo is 60 L and FiO2 of 95% in addition to 100% nonrebreather mask #2. Possibility of bacterial pneumonia ruled out based on negative pro- calcitonin, negative urine Legionella antigen, and negative mycoplasma IgM #3. History of rheumatoid arthritis, at this time it's unknown if patient has any chronic parenchymal changes from underlying history of rheumatoid arthritis #4. Hypothyroidism #5. Increased inflammatory markers including LDH, and CRP #6. Increased AST and ALT related to viral pneumonia secondary to COVID 19, imp roving Plan: Continue weaning FiO2, currently she is down to 8 L, she is breathing easier, follow up chest x-ray in the morning, Follow-up inflammatory markers and a d- dimer in the morning, continue weaning FiO2, once the patient is down to 5 L or less and she continues to improve may consider discharging the patient home on oxygen. I performed a history & physical examination of the patient and discussed their management with my nurse practitioner, Lilly Green. I reviewed the nurse practitioner's note and agree with the documented findings and plan of care. Lung sounds are positive for diminished breath soudns, and yusuf crackles. The findings and the impression was discussed with the patient. I attest to the documentation by the nurse practitioner. Time with Patient: Less than 30
[2020-08-08 17:49] LABS: Glucose,Whole Blood 215 mg/dL (75-99)
[2020-08-08 20:35] LABS: Glucose,Whole Blood 155 mg/dL (75-99)
[2020-08-09] MEDS: LEVOTHYROXINE 75 MCG TAB PO SCH (05:54)
[2020-08-09] MEDS: methylPREDNISolone SOD SUCCI 125 MG/2 ML VIAL IV SCH (05:54)
[2020-08-09 06:45] VITALS: RESP 17
[2020-08-09 06:47] LABS: HCT 36.8 % (34.0-46.0); HGB 12.5 gm/dL (11.4-16.0); MCV 91.4 fL (80.0-100.0); Mean Platelet Volume 7.8; Platelet Count 319 k/uL (150-450); RBC 4.03 m/uL (3.80-5.40); RDW 13.4 % (11.5-15.5); WBC 15.1 k/uL (3.8-10.6)
[2020-08-09 06:56] LABS: Glucose,Whole Blood 137 mg/dL (75-99)
[2020-08-09] MEDS: INSULIN ASPART (NovoLOG) 100 UNIT/ML VIAL SQ SCH ×4 (08:11→12:12)
[2020-08-09] MEDS: NYSTATIN 100,000 UNIT/ML SUSP 500,000 UNIT/5 ML CUP PO SCH ×2 (08:11→12:11)
[2020-08-09] MEDS: INSULIN DETEMIR (LEVEMIR) 100 UNIT/ML SYR SQ SCH (08:11)
[2020-08-09] MEDS: ASCORBIC ACID 500 MG TAB PO SCH (08:12)
[2020-08-09] MEDS: PANTOPRAZOLE 40 MG TABLET PO SCH (08:12)
[2020-08-09] MEDS: ENOXAPARIN 40 MG/0.4 ML SYRINGE SQ SCH (08:12)
[2020-08-09] MEDS: ZINC SULFATE 220 MG CAP PO SCH (08:12)
[2020-08-09] MEDS: ALBUTEROL HFA INHALER INHALATION SCH ×2 (08:27→11:54)
--- NOTE | 2020-08-09 08:56 | P.DS ---
Providers Date of admission: 07/28/20 04:28 Expected date of discharge: 08/09/20 Attending physician: Suresh Lemons Consults: 07/28/20 04:26 Consult Physician Routine Consulting Provider: Roberto Koch Consult Reason/Comments: hypoxia Do you want consulting provider notified?: Yes Primary care physician: Lamin [facility] Course: HISTORY OF PRESENT ILLNESS This is a 64-year-old female patient of Dr. Mcdonough with a past medical history of hypothyroidism, rheumatoid arthritis. Patient was recently exposed to her mother with Covid 19. Mother last day had had stated her home. She now complains of cough and shortness of breath. She denies having any fever. Patient presented to [facility] emergency center for evaluation. She is found to be afebrile, heart rate 90, blood pressure 142/76, pulse ox 81% on room air. WBC 18.8, d-dimer 0.63, blood sugar 171. AST 94, ALT 126. LDH 1234. CK 36. Troponin negative. C-reactive protein 186.8. ProBNP 128. COVID-19 nondetected. Chest x-ray reveals moderate to severe. She rounded interstitial infiltrates throughout the mid and lower lungs bilaterally consistent with Covid 19 pneumonia inhalers, Lovenox, consult requested with pulmonary medicine admitted to the [facility] floor. 07/29: The patient is now requiring nonrebreather and high flow nasal cannula 15 L with pulse ox of 95%. She has been afebrile, heart rate 68, blood pressure 121/72. She has been started on Remdesivir, day 2/5. Blood cultures are showing no growth at 24 hours. She continues to have a cough and cough with deep breathing. She denies chest pain or abdominal pain. Lovenox increase to twice daily. CAT scan angiogram of the chest ordered to rule out pulmonary embolism. This revealed diffuse bilateral airspace disease correlate for diffuse pneumonia or ARDS. No central pulmonary embolism distal branches are limited. 07/30: Patient is on day #3/5 on Remdesivir. She is status post convalescent plasma transfusion. The patient was transitioned to AirVo yesterday currently pulse oxing in the mid 80s on FiO2 90, flow rate of 60. Patient is to be laguerre sferred to the intensive care unit. Patient is complaining of shortness of breath as well as chest feeling tight and dry. Patient denies having any nausea, vomiting, diarrhea or abdominal pain. She's been afebrile, heart rate 65, blood pressure 143/58. D-dimer 0.63. Legionella negative. Sputum culture is in process. WBC 15, hemoglobin 12.2, platelet count 309, lymphocytes 0.8. Electrolytes normal, creatinine 0.5. Total bilirubin 0.4, AST 63, ALT 68, alkaline phosphatase 109. LDH 482. C-reactive protein 12.8. Troponin 1 negative. Mycoplasma testing is in process. Discussed CODE STATUS the patient wishes to BE a full code. 07/31: Patient is seen today in the intensive care unit. She is on both nonrebreather and high flow nasal cannula pulse oxing 90%. Repeat chest x-ray reveals correlate for pneumonia. No respiratory distress noted at the time of the valve. She has been afebrile WBC 11.9, hemoglobin 11.3, d-dimer 0.6. Electrolytes and renal function normal. Ferritin 649. AST 47, ALT 62, LDH improving to 482. Pro-calcitonin 0.08. Antibiotics discontinued. Covid 19 antibody test came back reactive. Mycoplasma pneumoniae IgG elevated and IgM low at 0.61. Patient is now transfused 2 units of convalescent plasma. She is on day 4/5 of Remdesivir. Dexamethasone was transitioned Solu-Medrol. 08/01: Patient remains in the intensive care unit. She is currently on airflow and a nonrebreather. Pulse ox drops into the 70s when she tries to eat with Arava 1 only. At rest she can maintain pulse ox of 90%. She has been afebrile, heart rate 72, respiratory rate 32, pulse ox 89%. WBC 17.5, lymphocytes are 0.9. D-dimer 0.64. Creatinine 0.54. Blood sugars running in the 200s up to 327. Total bilirubin 0.4, AST 40, ALT 59, alkaline phosphatase 111. Peritoneal 514.5. C-reactive protein 40.8. Sputum culture finalized with normal ozzy. Patient's son Henry ([phone]) is requesting the patient be transferred to [facility]. Patient herself will do what ever family wishes for her. Patient is not progressing but no worsening either be stable today. Do not anticipate [place] transfer. manager imaging is working with [place] at this time. Patient is on Remdesivir day #11/22. 08/02: Patient remains in the intensive care unit and pulse ox is 88-90% on Arava plus nonrebreather. She has been afebrile, heart rate 73, respiratory rate 29, blood pressure 134/65. WBC 17.2. D-dimer 0.77. Creatinine 0.58. Blood sugars running between 185 and 249. Ferritin 453.9. ALT 54. C-reactive protein 24.9. Scheduled NovoLog added to scale. 08/03: Patient remains in the intensive care unit and since she is feeling better. She is currently on airflow and nonrebreather at night with pulse ox is 94%. She is on airflow only during the day. Patient continues to have hyperglycemia for which NovoLog increased to 10 units scheduled and Levemir added. Patient is afebrile, heart rate 73, blood pressure 136/68. WBC 15.7, hemoglobin 11.4. Sodium 136, BUN 19 and creatinine 0.53. Blood sugars running between 199 at 306. Patient is laying on her sides which is close to she can get to proning. maintenance and engineering manager sinus rhythm. 08/04: Patient remains in the intensive care unit. Her respiratory status is slowly improving. She is now pulse oxing 90-94% with FiO2 of 65 and flow rate 50 which is down from 65%. She's been afebrile, heart rate 73, blood pressure 150/77. maintenance and engineering manager is sinus rhythm. Patient is eating very well. Patient is scheduled for midline insertion today. Blood sugars remain elevated 178-231 and Levemir increased to 10 units in the morning and scheduled NovoLog to 7 units. Other lab work reveals WBC 17.1. D-dimer 0.88. BUN 21 and creatinine 0.46. C-reactive protein 13.9. LDH 1448. 08/05: Patient remains in the intensive care unit. Her respiration status continues to show improvement. She is found sitting in a chair with 12 L high flow nasal cannula O2. She has been afebrile, heart rate 63, blood pressure 161/77, respirations 18 nonlabored, pulse oxing 92% on high flow at 12 L. Blood sugars remain elevated in the 200s. We will increase Levemir to 15 units in the morning and NovoLog to 10 units 3 times a day. WBC 17.9, hemoglobin 11.2, platelets 376, potassium 3.5, carbon dioxide 31, BUN 20, creatinine 0.55 08/06: Patient remains in the intensive care unit. She is found sitting up in ch air. Her respiration status continues to show improvement. She is currently at 10 L of high flow nasal cannula O2. Her pulse ox is between 93 and 94%. Blood sugars have been well managed with the change to the Levemir and NovoLog. Patient remains afebrile, respirations 28, blood pressure 135/91, pulse ox 94% on high flow O2 at 10L. WBC 18.0, hemoglobin 11.9, d-dimer 0.61, carbon dioxide 31, BUN 21, creatinine 0.49, C-reactive protein 5.1, CK-MB 0.8 08/07: Patient is found ambulating in her room. Pulse ox is 87% on 8 L. Patient does not complain of shortness of breath. She has been afebrile, heart rate 62, blood pressure 158/72. Blood sugars running between 162 and 226. And to continue to monitor closely and wean oxygen down. Most likely patient will require oxygen at discharge. 08/08: She has found again ambulating in her room. Pulse ox is now 85-86% on 10 L nasal cannula. She has been afebrile, heart rate 59, blood pressure 111/68. Blood sugar running between 132 and 293. Solu-Medrol was decreased as well as Lovenox decreased frequency yesterday by pulmonary medicine. Patient is currently stable and will need oxygen requirements down to 5 or 6 L before she can be discharged. Plan is to wean oxygen down and increase activity. Possible discharge by Friday or of this week. 08/09: Patient is found ambulating in her room. Her pulse ox is now 93% on 5 L. She has been afebrile, heart rate 81, blood pressure 108/54. W BC 15.1. D- dimer 0.43. Blood sugars are running between 137 and 215. Patient has not previously been diagnosed with diabetes but due to consistently high blood sugars requiring high doses of insulin, patient most likely does have underlying diabetes mellitus type 2. Patient will continue steroids for another week. Oxygen will be arranged prior to her discharge for underlying COVID-19. Patient is anxious to be discharged home. Patient will be discharged once all arrangements are completed. ASSESSMENT AND PLAN 1. Acute hypoxic respiratory failure secondary to Covid 19 pneumonia. 2. Acute bilateral pneumonia, Covid 19 pneumonia, possible bacterial pneumonia. 3. Elevated inflammatory markers consistent with Covid 19 pneumonia. 4. Rheumatoid arthritis. 5. Hypothyroidism. 6. Hyperglycemia secondary to steroids, possible diabetes mellitus type 2. 7. Chronic hypoxic respiratory failure requiring home oxygen secondary to Covid 19. DISCHARGE PLAN Home with [facility]. Impression and plan of care have been directed as dictated by the signing ph ysician. Leanne Luna nurse practitioner acting as scribe for signing physician. Patient Condition at Discharge: Good Plan - Discharge Summary New Discharge Prescriptions: New Dexamethasone [Decadron] 4 mg PO DAILY #8 tablet Zinc Sulfate [Orazinc] 220 mg PO DAILY cap Ascorbic Acid [Vitamin C] 1,000 mg PO DAILY tab Cholecalciferol [Vitamin D3 (25 Mcg = 1000 Iu)] 50 mcg PO DAILY tablet [place], Insulin Disposable [Bd Ultra-Fine Pen Needle 4mm 32g] 1 needle SQ DIRECTED #1 box Insulin Detemir [Levemir Flextouch] 10 units SQ DAILY #5 pen Insulin Aspart [NovoLOG Flexpen] 1 units SQ AC-TID #5 pen Continue Levothyroxine Sodium [Synthroid] 75 mcg PO DAILY Albuterol Sulfate [Proair Hfa] 1 puff INHALATION RT-Q6H PRN PRN Reason: Shortness Of Breath Naproxen 500 mg PO BID Discontinued methylPREDNISolone [Medrol Dose Pack] See Taper PO DIRECTED Azithromycin [Zithromax Z-pack (6 tabs)] See Taper PO DIRECTED Discharge Medication List Levothyroxine Sodium [Synthroid] 75 mcg PO DAILY 06/19/17 [History] Albuterol Sulfate [Proair Hfa] 1 puff INHALATION RT-Q6H PRN 07/28/20 [History] Naproxen 500 mg PO BID 07/28/20 [History] Ascorbic Acid [Vitamin C] 1,000 mg PO DAILY tab 08/09/20 [Rx] Cholecalciferol [Vitamin D3 (25 Mcg = 1000 Iu)] 50 mcg PO DAILY tablet 08/09/20 [Rx] Dexamethasone [Decadron] 4 mg PO DAILY #8 tablet 08/09/20 [Rx] Insulin Aspart [NovoLOG Flexpen] 1 units SQ AC-TID #5 pen 08/09/20 [Rx] Insulin Detemir [Levemir Flextouch] 10 units SQ DAILY #5 pen 08/09/20 [Rx] [place], Insulin Disposable [Bd Ultra-Fine Pen Needle 4mm 32g] 1 needle SQ DIRECTED #1 box 08/09/20 [Rx] Zinc Sulfate [Orazinc] 220 mg PO DAILY cap 08/09/20 [Rx] Follow up Appointment(s)/Referral(s): [facility] [NON-STAFF] - As Needed (Glucometer and oxygen) Marques Mena DO [Doctor of Osteopathic Medicine] - 09/11/20 2:15 pm [facility], [NON-STAFF] - Lamin Mcdonough DO [Primary Care Provider] - 08/15/20 10:30 am Patient Instructions/Handouts: Insulin Detemir (By injection), Type 2 Diabetes in Adults: New Diagnosis (DC) Discharge Disposition: HOME WITH HOME HEALTH SERVICES
[2020-08-09] MEDS ORDERED: CHOLECALCIFEROL 25 MCG (1000 IU) TABLET PO SCH (09:00)
--- NOTE | 2020-08-09 09:49 | XR ---
EXAMINATION TYPE: XR chest 1V portable DATE OF EXAM: 08/09/2020 COMPARISON: Chest x-ray 08/06/2020 HISTORY: Shortness of breath TECHNIQUE: Single frontal view of the chest is obtained. FINDINGS: Bilateral patchy density is again noted within the lungs. No evident pneumothorax or pleur al effusion. Cardiac mediastinal silhouette is stable. IMPRESSION: Correlate for pneumonia.
[2020-08-09 10:54] VITALS: BP 116/66; PULSE 88; TEMP 97.7
[2020-08-09 11:20] LABS: ALT 52 U/L (8-44); AST 20 U/L (13-35); African American GFR (CKD) 105.4 (60.0-200.0); Albumin/Globulin Ratio 1.73 (1.60-3.17); Alkaline Phosphatase 75 U/L (41-126); C Reactive Protein <0.4 mg/dL (0.0-0.8); Calcium 9.1 mg/dL (8.7-10.3); Carbon Dioxide 32.2 mmol/L (21.6-31.8); Chloride 100 mmol/L (96-109); Globulin 2.2 g/dL (1.6-3.3); Glucose 123 mg/dL (70-110); LDH 370 U/L (120-246); Non-African American GFR(CKD) 90.9 (60.0-200.0); Potassium 4.6 mmol/L (3.5-5.5); Sodium 140 mmol/L (135-145); Total Bilirubin 0.7 mg/dL (0.3-1.2)
[2020-08-09 11:41] LABS: Glucose,Whole Blood 260 mg/dL (75-99)
--- NOTE | 2020-08-09 11:59 | P.PN ---
Subjective Progress Note Date: 08/09/20 Principal diagnosis: COVID 19 pneumonitis This is a 64-year-old female patient of Dr. Lamin Mcdonough, who presented to the emergency department on July 2020 with one week history of fatigue, body aches, chills, worsening shortness of breath with multiple family members not feeling well with similar symptoms. Apparently patient tested for coronavirus and was found to be negative, in view of significant shortness of breath and hypoxemia with a pulse ox in the low 80s, EMS was called. Of note patient's mother recently passed in this hospital of COVID 19 related complications. Patient's daughter is also hospitalized with COVID 19 symptoms. Chest x-ray showed [id number] patchy rounded interstitial infiltrates throughout mid to lower lungs consistent with COVID 19 pneumonia. White blood cell count is 18.8, hemoglobin is 13, neutrophil count is 16.6, lymphocyte count was 1.4, d-dimer 0.63, electrolytes are within normal limits, BUN is 19 creatin ine 0.5, lactic acid is 1.2, repeat COVID 19 rapid test in the emergency department was again negative. Patient's creatinine 8 L of oxygen pulse ox is 90-95%. The patient is seen today 07/29/2020 in follow-up on the regular medical floor. She is currently awake and alert and she is in mild respiratory distress. Her oxygen requirements have increased overnight. She is currently on 15 L high fl ow nasal cannula initially on a nonrebreather mask. She's currently afebrile. Computed tomography scan of the chest reveals diffuse bilateral airspace disease consistent with CoVID 19 pneumonitis. No evidence of pulmonary embolism. She did receive 1 unit of convalescent plasma. Blood and sputum cultures are pending. She is currently on ceftriaxone and azithromycin along with dexamethasone, Lovenox, vitamin supplements. This is day #2 of Remdesivir. A shunt was reevaluated today on 07/30/2020, patient took a downhill course clinically this morning, continued to desaturate, required higher FiO2, and she is now on 60 L high flow, and 90% FiO2 on airvo. Patient was noted to be dyspneic by the nurse taking care of her. Her oxygen requirement jumped up significantly, hence I recommended transferring the patient to the ICU. Patient is on remdesivir, day #3, and she received 1 unit of convalescent plasma. Patient remains on antibiotics empirically in the form of Rocephin and Zithrom ax, she is also on dexamethasone, Lovenox, and vitamin supplements. On 07/31/2020 patient seen in follow-up in the intensive care unit, she is awake and alert, still requiring quite a bit of oxygen, she is on high flow per Airvo at 60 L and FiO2 of 90% in addition to 100% nonrebreather mask her pulse ox is ranging between 88-90-91%, but seems to be in no acute distress. Blood pressure stable, patient has been afebrile, she is short of breath with any exertion, no chest discomfort. Today's chest x-ray has been reviewed showing bilateral patchy airspace disease persistence, low lung volumes and patient is rotated. Today's labs have been reviewed, showing white blood cell count of 11.9, hem oglobin is 11.3, d-dimer is 0.60, electrolytes and renal profile are unremarkable. Ferritin level is 649, liver enzymes are improving, AST is down to 47, ALT 62, LDH was improving from admission, and was down to 482 on yesterday's labs, CRP is up a bit from yesterday but overall is down compared to admission, pro-calcitonin level is negative at 0.08, patient's Covid 19 antibiotic test came back reactive confirming suspicion for Covid 19 related pneumonitis, Legionella urine antigen was negative, and mycoplasma pneumonia IgG came back elevated and mycoplasma pneumonia IgM was low at 0.61, suggesting exposure to mycoplasma pneumonia infection in the past but no current infection. Blood and sputum cultures have been negative. Patient is status post transfusion with 2 units of convalescent plasma and patient is on day 3 of Remdesivir treatment, she is on high-dose IV steroids with Solu-Medrol 40 mg every 6 hours and Lovenox at 40 mg twice daily On 08/01/2020 patient seen in follow-up in the intensive care unit, she remains on Airvo a 60 L and FiO2 of 90% in addition to 100% nonrebreather mask, and patient still quite hypoxic, and when she removes the nonrebreather mask for mealtimes patient quickly desats down to 79% and has to be placed on the additional oxygen until she recovers her saturation. Currently O2 sat is anywhere between 83 to 90%, afebrile, patient is dyspneic with any little exertion, but appears to be in no acute distress, no completes of chest pain, mild cough, chest x-ray today shows bilateral groundglass opacities, similar to previous exam, with possibly slight interval improvement in aeration. Patient is on day 4 of Remdesivir treatment, she status post revision with 2 units of convalescent immunoglobulin for Covid 19 and she remains on IV steroids with Solu-Medrol 80 mg every 6 hours in addition to vitamins, C, D and zinc, anticoagulation is with Lovenox 40 mg every 12 hours, and d-dimer is currently at 0.64, serum labs have been reviewed, showing white blood cell count 17.5, electrolytes and renal profile are unremarkable. On 08/02/2020 patient seen in follow-up in the intensive care unit, she remains on Airvo at 60 L at FiO2 of 90% in addition to 100% nonrebreather mask, however her sats noted to be better today, and during meals patient's O2 sat did not drop as low, patient is able tolerate breaks from the nonrebreather mask a levar le better. Breathing little better, she's been afebrile, hemodynamically stable, chest x-ray shows bilateral patchy infiltrates, stable in appearance. Patient completed her Remdesivir treatment, she did receive 2 units of convalescent plasma, she remains on IV steroids at 60 mg every 6 hours, sharon mins, and Lovenox at 40 mg every 12 hours. Today's labs have been reviewed, showing blood cell count 17.2, hemoglobin is 11.5, lymphopenia with the lymphocyte count of 0.8, neutrophils at 15.4, d-dimer 0.7, electrolytes are within normal limits, BUN is 19 and creatinine 0.58, d-dimer today is 0.77, CRP is 24.9, no LDH today, patient did receive a few days of antibiotics which were discontinued On 08/03/2020 patient seen in follow-up in the intensive care unit, she remains on Airvo at 60 L and FiO2 of 90% in addition to nonrebreather mask at 100%, and her pulse ox is 93-95%, normal. Does not appear to be in any acute distress, however does have exertional dyspnea. She's been afebrile, hemodynamically she is stable, no altered mentation, she is answering questions appropriately. Chest x-ray today shows bilateral interstitial and patchy airspace disease right greater than left without significant change. Denies any palpitations or chest discomfort, no significant cough. Patient status post 2 units of convalescent plasma, she remains on IV steroids, and she has completed her Remdesivir treatment. He remains on Lovenox at 40 mg every 12 hours, her d-dimer was 0.77. The rest of her lab data was reviewed, showing white blood cell count is 15.7, hemoglobin is 11.4, electrolytes and renal profile were unremarkable. Ferritin level has been trending down, her LDH from a few days ago was 482, and CRP was 24.9 on yesterday's labs. She's had no nausea vomiting or diarrhea. She is tolerating oral intake. On 08/04/2020 patient seen in follow-up in the intensive care unit. She remains on Airvo currently 55% FiO2 of 75%, she is no longer requiring her percent nonrebreather mask in addition to the Airvo. Her pulse ox is 90-94%, she is afebrile, hemodynamically stable, she is on 0.9 normal saline at a rate of 100 ML per hour, she is breathing easier, she seems to be oxygenating better. No new chest x-ray today, on today's labs have been reviewed, white blood cell count is 17.1, hemoglobin is 11.5, d-dimer 0.88, sodium is 136, potassium 3.7, CO2 is 32, BUN is 21 creatinine 0.56, LDH still elevated at 1448, CRP is 13.9. Blood and sputum cultures have been negative. Remains on high-dose IV steroids. Lovenox is at 40 mg every 12 hours. On August 08, 2020 patient seen in follow-up on medical floor, currently FiO2 is down to 8 L, her pulse ox is 94%, patient states she is breathing easier, she is afebrile, hemodynamically she is stable, lung sounds reveal some diffuse dry crackles, scant cough or congestion, no nausea vomiting or diarrhea, vital signs have been stable, patient has been tolerating ambulation, she's had no acute events overnight, her appetite is good, and patient is inquiring about her lunch and states that she is feeling hungry. She remains on high-dose IV steroids of Solu-Medrol 60 mg every 6 hours, prophylactic dose Lovenox 40 mg daily, no labs today, her last d-dimer was back on the Janumet 72,021 shows with the d-dimer 0.61, her inflammatory markers were improving, we will obtain follow-up inflammatory markers, blood and sputum cultures have shown no growth, on 08/06/2020 showed patchy bilateral airspace disease and persistent elevation of the right hemidiaphragm 08/09/2020 patient seen in follow-up on the medical floor, this morning she was down to 5 L of oxygen her pulse ox was 91%, she was later removed from supplemen abbi oxygen, and her pulse ox remained at around 90-91%, no worsening dyspnea, cough, no chest discomfort, no palpitations, vital signs have been stable, she has had no fever or chills, today chest x-ray has been reviewed showing bilateral patchy density, electively stable, without significant change. Clinically patient has been stable his labs haven't reviewed, white blood cell count is 15.1, hemoglobin is 12.5, electrolytes and renal profile were unremarkable, mmHg is have significantly improved since admission, LDH is down to 370, and CRP is less than 0.4, d-dimer is 0.43, patient remains on prophylactic dose of Lovenox Objective - Vital Signs Vital signs: Vital Signs Temp 97.7 F 08/09/20 09:42 Pulse 88 08/09/20 09:42 Resp 17 08/09/20 09:42 BP 116/66 08/09/20 09:42 Pulse Ox 91 L 08/09/20 09:42 Intake & Output 08/08/20 08/09/20 08/09/20 18:59 06:59 18:59 Intake Total 880 Balance 880 Intake: Oral 880 Other: Voiding Method Bedside Commode # Voids 3 2 # Bowel Movements 1 - Exam GENERAL EXAM: Alert, oriented, 64-year-old female on room air, the pulse ox of 91%, oxygenating better. HEAD: Normocephalic/atraumatic. EYES: Normal reaction of pupils, equal size. Conjunctiva pink, sclera white. NOSE: Clear with pink turbinates. THROAT: No erythema or exudates. NECK: No masses, no JVD, no thyroid enlargement, no adenopathy. CHEST: No chest wall deformity. Symmetrical expansion. LUNGS: Equal air entry with no crackles, wheeze, rhonchi or dullness. CVS: Regular rate and rhythm, normal S1 and S2, no gallops, no murmurs, no rubs ABDOMEN: Soft, nontender. No hepatosplenomegaly, normal bowel sounds, no guarding or rigidity. EXTREMITIES: No clubbing, no edema, no cyanosis, 2+ pulses and upper and lower extremities. MUSCULOSKELETAL: Muscle strength and tone normal. SPINE: No scoliosis or deformity SKIN: No rashes CENTRAL NERVOUS SYSTEM: Alert and oriented -3. No focal deficits, tone is normal in all 4 extremities. PSYCHIATRIC: Alert and oriented -3. Appropriate affect. Intact judgment and i nsight. - Labs CBC & Chem 7: 08/09/20 06:32 08/09/20 06:32 Labs: Abnormal Lab Results - Last 24 Hours (Table) 08/08/20 08/08/20 08/09/20 Range/Units 17:46 20:34 06:32 WBC 15.1 H (3.8-10.6) k/uL Carbon Dioxide (21.6-31.8) mmol/L BUN (9.0-27.0) mg/dL BUN/Creatinine Ratio (12.00-20.00) Ratio Glucose (70-110) mg/dL POC Glucose (mg/dL) 215 H 155 H (75-99) mg/dL ALT (8-44) U/L Lactate Dehydrogenase (120-246) U/L Total Protein (6.2-8.2) g/dL 08/09/20 08/09/20 08/09/20 Range/Units 06:32 06:53 11:39 WBC (3.8-10.6) k/uL Carbon Dioxide 32.2 H (21.6-31.8) mmol/L BUN 28.0 H (9.0-27.0) mg/dL BUN/Creatinine Ratio 40.00 H (12.00-20.00) Ratio Glucose 123 H (70-110) mg/dL POC Glucose (mg/dL) 137 H 260 H (75-99) mg/dL ALT 52 H (8-44) U/L Lactate Dehydrogenase 370 H (120-246) U/L Total Protein 6.0 L (6.2-8.2) g/dL Assessment and Plan Plan: Assessment: #1. Acute hypoxic respiratory failure, related to COVID 19 related pneumonitis, patient had 3 negative COVID 19 rapid test, however the diagnosis was confirmed with reactive antibiotic test, patient was initiated on Remdesivir on 07/28/2020, and she received 2 units of convalescent plasma on 07/28/2020 and a 07/30/2020. Remains on high flow oxygen per Airvo is 60 L and FiO2 of 95% in addition to 100% nonrebreather mask. Oxygenation has significantly improved, especially last 24 hours, patient is off supplemental oxygen currently and her pulse ox is 90-91% #2. Possibility of bacterial pneumonia ruled out based on negative pro- calcitonin, negative urine Legionella antigen, and negative mycoplasma IgM #3. History of rheumatoid arthritis, at this time it's unknown if patient has a ny chronic parenchymal changes from underlying history of rheumatoid arthritis #4. Hypothyroidism #5. Increased inflammatory markers including LDH, and CRP #6. Increased AST and ALT related to viral pneumonia secondary to COVID 19, improving Plan: Patient remains clinically stable, she is currently off the oxygen, no worsening dyspnea, no fever or chills, she is tolerating ambulation in the room, she's had no acute events overnight, inflammatory markers have significantly improved, chest x-ray still shows bilateral airspace disease related to COVID 19 pneumonitis, without significant change, however in terms of dyspnea, and oxygenation patient has significantly improved. Discharge home is pending, patient will be going home on the few days worth of oral Decadron, she can follow up with Dr. Nunez in the office in 2-3 weeks I performed a history & physical examination of the patient and discussed their management with my nurse practitioner, Lilly Green. I reviewed the nurse practitioner's note and agree with the documented findings and plan of care. Lung sounds are positive for diminished breath soudns, and yusuf crackles. The findings and the impression was discussed with the patient. I attest to the documentation by the nurse practitioner. Time with Patient: Less than 30
== END 2020-08-09 13:46 | disposition home health service (06) | DRG 177 ==
LOC: EC 03:16 → 6NMEDSUR 04:28 → 2SICU 07-30 09:51 → 6NMEDSUR 08-06 11:28 → 4SSUR 08-08 17:01
PROVIDERS: ADMIT Internal Medicine Geriatric Medicine; ATTEND Internal Medicine Geriatric Medicine
PROC: XW13325 Transfusion of Convalescent Plasma (Nonautologous) into Peripheral Vein, Percutaneous Approach, New Technology Group 5 (ICD-10-PCS; principal; 2020-07-28)
PROC: XW033E5 Introduction of Remdesivir Anti-infective into Peripheral Vein, Percutaneous Approach, New Technology Group 5 (ICD-10-PCS; 2020-07-28)
PROC: 05HD33Z Insertion of Infusion Device into Right Cephalic Vein, Percutaneous Approach (ICD-10-PCS; 2020-08-04 10:30)
DX: U07.1 COVID-19 (principal); J12.82 Pneumonia due to coronavirus disease 2019; J96.21 Acute and chronic respiratory failure with hypoxia; J15.9 Unspecified bacterial pneumonia; M06.9 Rheumatoid arthritis, unspecified; E11.65 Type 2 diabetes mellitus with hyperglycemia; E03.9 Hypothyroidism, unspecified; E66.9 Obesity, unspecified; T38.0X5A Adverse effect of glucocorticoids and synthetic analogues, initial encounter; Z68.27 Body mass index [BMI] 27.0-27.9, adult; Z79.890 Hormone replacement therapy; Z79.1 Long term (current) use of non-steroidal anti-inflammatories (NSAID); Z79.899 Other long term (current) drug therapy; Z71.3 Dietary counseling and surveillance
CPT/HCPCS: 36410; 36415; 71045; 71275; 76937; 80048; 80053; 82550; 82553; 82728; 83520; 83605; 83615; 83625; 83735; 83880; 84145; 84484; 85025; 85027; 85379; 85384; 85610; 85730; 86140; 86738; 86769; 86850; 86900; 86901; 87040; 87070; 87205; 87449; 87502; 87635; 93005; 94640; 94760; 96361; 96374; 99291